=== PATIENT | female | born 1970 | race Caucasian/White ===

== ENCOUNTER 2024-02-15 06:19 | Emergency (ER) | payer OTHER, SELFPAY ==
[2024-02-15 06:24] VITALS: BP 164/100; PULSE 82; RESP 16; TEMP 36.5; O2SAT 98
--- NOTE | 2024-02-15 06:40 | ED.GENADUL_ITS ---
Discharge Plan Disposition Patient Disposition: Home Condition: Good Discharge Details Clinical Impression: Paronychia of finger ED Provider: Judy Gonzalez Home Meds and New Rx's Prescriptions: Continued Ozempic 2 mg/dose (8 mg/3 mL) pen injector 2 mg subcut QWEEK levothyroxine [Synthroid] 50 mcg tablet 50 mcg PO DAILY aspirin 81 mg capsule 81 mg PO DAILY ziprasidone HCl [Geodon] 80 mg capsule 80 mg PO DAILY Rx Instructions: give with food (meal/snack) trazodone 100 mg tablet 200 mg PO DAILY duloxetine [Cymbalta] 60 mg capsule,delayed release(DR/EC) 60 mg PO DAILY lithium carbonate 300 mg tablet 300 mg PO DAILY magnesium oxide 400 mg magnesium capsule 400 mg PO DAILY [id number]-rqefjpzc-duxdbj Tablet 1 tab PO DAILY fluticasone propion-salmeterol [Advair Diskus] 250-50 mcg/dose blister with device 1 inh inhalation BID esomeprazole magnesium [Nexium] 20 mg capsule,delayed release(DR/EC) 20 mg PO DAILY celecoxib [Celebrex] 200 mg capsule 200 mg PO DAILY clopidogrel [Plavix] 75 mg tablet 75 mg PO DAILY metformin 1,000 mg tablet 1,000 mg PO BID atorvastatin [Lipitor] 10 mg tablet 10 mg PO DAILY acetaminophen [Tylenol Extra Strength] 500 mg tablet 1,000 mg PO DAILY Discharge Instructions Instructions: Paronychia (ED) Additional Instructions: Continuing taking the doxycycline twice a day for 10 days, until it is all gone Call your primary care doctor today to schedule an appointment within the next 4 days to follow up on your visit here. Return to the emergency department for new or worsening symptoms, including if your finger pain and swelling worsens. HPI General Mode of arrival: ambulatory . Date/Time Provider Initiated Documentation: 02/15/24 06:23 . Limitations to Documentation: no limitations . Information obtained by: patient . HPI Narrative: 53yo F with hx DM, prior MRSA infections, presenting with right middle finger pain and swelling. First noted several days ago, reports going to urgent care on Thursday and being started on 7 day course of doxycycline. Since then pain and swelling have been worsening. No fevers, chills, nasuea, or vomiting. She is otherwise in her usual state of health. Related Data Home Medications Medication Instructions Recorded Confirmed acetaminophen 500 mg tablet 1,000 mg PO DAILY 02/15/24 02/15/24 (Tylenol Extra Strength) aspirin 81 mg capsule 81 mg PO DAILY 02/15/24 02/15/24 atorvastatin 10 mg tablet (Lipitor) 10 mg PO DAILY 02/15/24 02/15/24 celecoxib 200 mg capsule (Celebrex) 200 mg PO DAILY 02/15/24 02/15/24 clopidogrel 75 mg tablet (Plavix) 75 mg PO DAILY 02/15/24 02/15/24 duloxetine 60 mg capsule,delayed 60 mg PO DAILY 02/15/24 02/15/24 release (Cymbalta) esomeprazole magnesium 20 mg 20 mg PO DAILY 02/15/24 02/15/24 capsule,delayed release (Nexium) fluticasone 250 mcg-salmeterol 50 1 inh inhalation BID 02/15/24 02/15/24 mcg/dose blistr powdr for inhalation (Advair Diskus) levothyroxine 50 mcg tablet 50 mcg PO DAILY 02/15/24 02/15/24 (Synthroid) lithium carbonate 300 mg tablet 300 mg PO DAILY 02/15/24 02/15/24 magnesium oxide 400 mg PO DAILY 02/15/24 02/15/24 metformin 1,000 mg tablet 1,000 mg PO BID 02/15/24 02/15/24 pdxhsjxhwiir-icwpzluy-vaccum tablet 1 tab PO DAILY 02/15/24 02/15/24 semaglutide 2 mg/dose (8 mg/3 mL) 2 mg subcut QWEEK 02/15/24 02/15/24 subcutaneous pen injector (Ozempic) trazodone 100 mg tablet 200 mg PO DAILY 02/15/24 02/15/24 ziprasidone HCl 80 mg capsule 80 mg PO DAILY 02/15/24 02/15/24 (Geodon) Allergies Allergy/AdvReac Type Severity Reaction Status Date / Time Influenza Virus Vaccines Allergy Intermediate Hives Unverified 02/15/24 06:34 Penicillins Allergy Intermediate Skin Rash Unverified 02/15/24 06:34 Sulfa (Sulfonamide Allergy Intermediate Skin Rash Unverified 02/15/24 06:34 Antibiotics) tramadol AdvReac Mild Other (See Unverified 02/15/24 06:34 Comment) General Stated Complaint: Cellulitis MAITE: 4 Review of Systems Narrative: see HPI Exam Narrative Exam Narrative: General: Alert, well appearing, well nourished, in no acute distress. Head: Normocephalic, atraumatic Neck: Trachea midline, ?Neck supple. Cardiac: ?No cyanosis. Resp: No respiratory distress. Speaking in full sentences. Abd: ?Non-distended. Extremities: ?Right middle finger with paronchynia. Swelling and fluctuatance at distal phalanx extending from nail bed. Full ROM. No tenderness of palpation of flexor tendon sheath. Neurologic: GCS 15. ? Moves all extremities freely against gravity Course Vital Signs Vital signs: Vital Signs Temperature 36.5 C 02/15/24 06:24 Pulse 82 02/15/24 06:24 Respiratory Rate 16 02/15/24 06:24 Blood Pressure 164/100 H 02/15/24 06:24 Pulse Oximetry 98 02/15/24 06:24 Temperature 36.5 C 02/15/24 06:24 Temperature Source Temporal Artery Scan 02/15/24 06:24 Pulse 82 02/15/24 06:24 Respiratory Rate 16 02/15/24 06:24 Blood Pressure 164/100 H 02/15/24 06:24 Blood Pressure Position Sitting 02/15/24 06:24 Pulse Oximetry 98 02/15/24 06:24 Oxygen Delivery Method Room Air 02/15/24 06:24 Oxygen Flow Rate 0 02/15/24 06:24 Pain Level 9 02/15/24 06:24 Procedures Abscess I/D Site: Hand Side (if applicable): Right Sedation/analgesia: Other (digital block) Technique: Incised with #11 Blade Amount of fluid expressed (mL): 3 Irrigation: No Packing used?: None Nerve Block Nerve Block 1: Time out performed: Yes Local Anesthetic: Lidocaine 2% Amount of anesthesia used (mL): 5 Side: right Nerve Blocks: digital Procedure Successful: Yes Patient Tolerated Procedure: well Complications: none Medical Decision Making 53yo F with hx DM, prior MRSA infections, presenting with right middle finger pain and swelling. First noted several days ago, reports going to urgent care on Thursday and being started on 7 day course of doxycycline. Since then pain and swelling have been worsening. Systemically well. Hypertensive on arrival, vital signs otherwise reassuring. Not septic. would not get labs. Clear paronychia on right middle finger on exam. Exam not suggestive of flexor tenosynovitis, felon, or deep space involvement. Neurovascular intact. No indication for imaging. Digital block done and paronchyia I&D with 11 blade, copious purulence expressed. Given hx of severe MRSA infections in the past, will extend course of doxycycline to 10 days (sulfa and pxn allergy). Discharged home; discharge instructions and return precautions were reviewed with patient who verbalized understanding. All questions were answered and she is in agreement with the plan. Quality:SDOH Health Related Social Needs: No Data to Display PFSH All Active Problems (Updated 02/15/24 @ 06:57 by Judy Gonzalez MD) Paronychia of finger (Acute) Social History Smoking/Tobacco Use Status: Never Smoking risk assessment performed?: Yes Alcohol Intake: never Drug use: Never Substance use type: does not use
[2024-02-15] MEDS: Lidocaine 2% Multi-Dose 50 ML VIAL (06:48)
[2024-02-15 07:15] VITALS: BP 150/88; PULSE 78; RESP 16; TEMP 36.5; O2SAT 98
[2024-02-15] MEDS: Doxycycline Hyclate 100 MG CAP 600 MG PO (07:17)
== END 2024-02-15 07:15 | disposition home or self-care (01) ==
LOC: ER 07:25
PROVIDERS: Emergency Provider Student in an Organized Health Care Education/Training Program
DX: L03.019 Cellulitis of unspecified finger (principal)
CPT/HCPCS: 26010; 64450; J2003

== ENCOUNTER 2024-07-09 20:28 | Emergency (ER) | payer OTHER, SELFPAY ==
[2024-07-09] VITALS (35 sets, daily range): BP systolic 107–147; BP diastolic 42–92; PULSE 68–80; RESP 17–26; TEMP 36.1; O2SAT 92–97
--- NOTE | 2024-07-09 20:30 | RT.EKG_ITS ---
APPROVED REPORT Exam: Resting ECG Reason for Exam: stroke a Patient Location: E HR:76 bpm ECG Measurements Heart Rate 76 AXIS VT 187 P 7 QRSd 101 QRS -14 QT 433 T 45 QTc 487 Conclusion Sinus rhythm...normal P axis, V-rate 60- 99 Inferior infarct, old...Q >35mS, II III aVF sinus rhythm, normal axis, normal intefvals, nonischemic
--- NOTE | 2024-07-09 20:30 | DI.CT_ITS ---
Exam(s) CT BRAIN NECK CTA EXAM: CT BRAIN NECK CTA CLINICAL HISTORY: trouble forming sentences, hx TIA. TECHNIQUE: Imaging Protocol: Axial CT angiography was performed with multi-slice acquisition and mu lti-planar and/or 3D reconstructions. CONTRAST MATERIAL: Intravenous: Omnipaque 350 Contrast volume:structured data in ml COMPARISON: No exams were available for comparison FINDINGS: CTA Neck W: Aortic arch anatomy: The aortic arch anatomy is conventional and there is no significant stenosis at the origin of the great vessels off of the aortic arch. No intimal flap evident. Anterior circulation: Both common carotid arteries ascend with normal luminal diameters. The course of the ascending commo n carotid arteries is medial bilaterally and the carotid bifurcations are retro hypo pharyngeal. The re is no evidence of atherosclerotic stenosis in the carotid bifurcations and proximal ICAs and the i nternal carotid arteries above this level are nicely patent in both sides the neck as well as in the skull base-carotid canals. Posterior circulation: Both vertebral arteries originate in conventional fashion off of the subclavian arteries and there is no obvious stenosis at the origin of the vertebral arteries. Both vertebral arteries exhibit normal luminal diameters within the foramen transversarium. Both vertebral arteries contribute to the formation of the basilar artery at the skull base. There i s no significant narrowing of the vertebral arteries at the skull base level. CTA Brain W: Anterior circulation: Both internal carotid arteries are patent in the skull base-carotid canals as well as within the cave rnous sinuses. The supraclinoid aspects of the ICAs are patent. Both A1 segments are patent as are the anterior cer ebral arteries and there is no evidence of aneurysm at the level of the anterior communicating artery . Both middle cerebral arteries are patent with no evidence of significant stenosis nor intraluminal th rombus. There also no aneurysms of these vessels. Posterior circulation: The basilar artery ascends in the midline. Distally it gives off patent bilateral superior cerebella r arteries. Above this level the basilar artery terminates as patent bilateral posterior cerebral arteries. Ther e is a posterior communicating artery noted on the right side of the qcnxlr-pa-Uyztcp adding to the P COM circulation. There appears to be fainter opacification of the 3rd and 4 segments of the right po sterior artery at the level of the ambient and quadrigeminal cistern regions. This may be significan t There is no evidence of aneurysm at the tip of the basilar artery nor elsewhere in the ytcpmp-wr-Fjfg is. CT BRAIN: There is no evidence of intracranial hemorrhage, mass effect, or shift of midline structures. There are no extra-axial fluid collections. Ventricles are not enlarged or shifted. There are no ring enh ancing lesions in the brain and no abnormal meningeal enhancement. There is a well-defined hypodensity in left side of the brain which measures 9 x 9 x 9 mm and is prob ably a developmental sub lenticular cyst. Similar findings not seen on the opposite-right side. IMPRESSION: 1. Patent carotid arteries in the neck. No hemodynamically significant stenosis. 2. Patent vertebral arteries. 3. Patent anterior circulation intracranial arteries. 4. In the posterior intracranial circulation there is deficient opacification in the P 3 and P4 segme nts of the right posterior cerebral artery. Recommend follow-up MRI with diffusion imaging and MRA. Also neurology consultation First read by Elsy [facility] Final report called by myself to ER physician 07/10/2024 5:40 p.m. RADIATION DOSE DELIVERED: 2,274.69mGy.cm Total DLP DATA REPOSITORY: All CT scans at this facility are submitted to the National Radiology Data Registry (NRDR) Dose Index Registry (DIR) with the [employer] ([employer]). RADIATION OPTIMIZATION: All CT scans at this facility use at least one of these dose optimization te chniques: automated exposure control; mA and/or kV adjustment per patient size (includes targeted exa ms where dose is matched to clinical indication); or iterative reconstruction.
--- NOTE | 2024-07-09 20:31 | DI.RAD_ITS ---
Exam(s) XR CHEST 2V PA LATERAL EXAM: XR CHEST 2V PA LATERAL CLINICAL HISTORY: ams trouble speaking. TECHNIQUE: 2D digital imaging was performed. COMPARISON: No exams were available for comparison FINDINGS: 2 views: Heart size is upper normal. The mediastinum is not widened. Lungs are clear. No infiltrates nor pleural effusions. IMPRESSION: No acute pulmonary findings. DATA REPOSITORY: RADIATION DOSE DELIVERED:
[2024-07-09 20:38] LABS: Abs Immature Grans 0.04 10^3/uL (0.0-0.06); Absolute Basophil Count 0.04 10^3/uL (0.0-0.2); Absolute Eosinophil Count 0.34 10^3/uL (0.0-0.7); Absolute Lymphocyte Count 3.03 10^3/uL (1.2-3.4); Absolute Monocyte Count 0.75 10^3/uL (0.1-0.8); Absolute Neutrophil Count 6.42 10^3/uL (1.2-6.7); Basophils % 0.4 %; Eosinophils % 3.2 %; HCT 42.7 % (36.0-46.0); Immature Grans % 0.4 %; Lymphocytes % 28.5 %; MCH 27.1 pg (27.0-33.0); MCHC 30.4 % (32.0-36.0); MCV 89 fL (80-95); MPV 10.2 fL (8.0-11.0); Monocytes % 7.1 %; Neutrophils % 60.4 %; Platelet Count 255 10^3/uL (130-400); RDW 14.2 % (11.7-14.6); WBC 10.62 10^3/uL (4.4-10.8)
--- NOTE | 2024-07-09 20:38 | ED.GENADUL_ITS ---
Discharge Plan Discharge Details Chief Complaint: CVA/TIA Primary Care Provider: Unknown,Unknown ED Provider: Thad Alvarado Home Meds and New Rx's Prescriptions: No Action Ozempic 2 mg/dose (8 mg/3 mL) pen injector 2 mg subcut QWEEK levothyroxine [Synthroid] 50 mcg tablet 50 mcg PO DAILY aspirin 81 mg capsule 81 mg PO DAILY ziprasidone HCl [Geodon] 80 mg capsule 80 mg PO DAILY Rx Instructions: give with food (meal/snack) trazodone 100 mg tablet 200 mg PO DAILY duloxetine [Cymbalta] 60 mg capsule,delayed release(DR/EC) 60 mg PO DAILY lithium carbonate 300 mg tablet 300 mg PO DAILY magnesium oxide 400 mg magnesium capsule 400 mg PO DAILY [id number]-kbfshdfb-svfeoh Tablet 1 tab PO DAILY fluticasone propion-salmeterol [Advair Diskus] 250-50 mcg/dose blister with device 1 inh inhalation BID esomeprazole magnesium [Nexium] 20 mg capsule,delayed release(DR/EC) 20 mg PO DAILY celecoxib [Celebrex] 200 mg capsule 200 mg PO DAILY clopidogrel [Plavix] 75 mg tablet 75 mg PO DAILY metformin 1,000 mg tablet 1,000 mg PO BID atorvastatin [Lipitor] 10 mg tablet 10 mg PO DAILY acetaminophen [Tylenol Extra Strength] 500 mg tablet 1,000 mg PO DAILY HPI General Date/Time Provider Initiated Documentation: 07/09/24 20:30 . HPI Narrative: 53-year-old female history of prior stroke, hypothyroidism, obesity, diabetes presents with acute word finding difficulties trouble speaking that began approximately 30 minutes before arrival, witnessed by family. Denies headache chest pain shortness of breath or other systemic symptoms. No weakness or numbness. Blood sugar normal in the field per EMS Related Data Home Medications ?Medication ?Instructions ?Recorded ?Confirmed acetaminophen 500 mg tablet 1,000 mg PO DAILY 02/15/24 02/15/24 (Tylenol Extra Strength) aspirin 81 mg capsule 81 mg PO DAILY 02/15/24 02/15/24 atorvastatin 10 mg tablet (Lipitor) 10 mg PO DAILY 02/15/24 02/15/24 celecoxib 200 mg capsule (Celebrex) 200 mg PO DAILY 02/15/24 02/15/24 clopidogrel 75 mg tablet (Plavix) 75 mg PO DAILY 02/15/24 02/15/24 duloxetine 60 mg capsule,delayed 60 mg PO DAILY 02/15/24 02/15/24 release (Cymbalta) esomeprazole magnesium 20 mg 20 mg PO DAILY 02/15/24 02/15/24 capsule,delayed release (Nexium) fluticasone 250 mcg-salmeterol 50 1 inh inhalation BID 02/15/24 02/15/24 mcg/dose blistr powdr for inhalation (Advair Diskus) levothyroxine 50 mcg tablet 50 mcg PO DAILY 02/15/24 02/15/24 (Synthroid) lithium carbonate 300 mg tablet 300 mg PO DAILY 02/15/24 02/15/24 magnesium oxide 400 mg PO DAILY 02/15/24 02/15/24 metformin 1,000 mg tablet 1,000 mg PO BID 02/15/24 02/15/24 bmzfuanvydhf-wdhlmowe-dojpkq tablet 1 tab PO DAILY 02/15/24 02/15/24 semaglutide 2 mg/dose (8 mg/3 mL) 2 mg subcut QWEEK 02/15/24 02/15/24 subcutaneous pen injector (Ozempic) trazodone 100 mg tablet 200 mg PO DAILY 02/15/24 02/15/24 ziprasidone HCl 80 mg capsule 80 mg PO DAILY 02/15/24 02/15/24 (Geodon) Allergies Allergy/AdvReac Type Severity Reaction Status Date / Time Influenza Virus Vaccines Allergy Intermediate Hives Unverified 07/09/24 21:10 Penicillins Allergy Intermediate Skin Rash Unverified 07/09/24 21:10 Sulfa (Sulfonamide Allergy Intermediate Skin Rash Unverified 07/09/24 21:10 Antibiotics) tramadol AdvReac Mild Other (See Unverified 07/09/24 21:10 Comment) General Stated Complaint: CVA/TIA MAITE: 2 Exam Narrative Exam Narrative: Alert oriented interactive Moist mucous membranes tolerating secretions Lungs clear bilaterally no wheezes rales or rhonchi Normal heart sounds no murmurs rubs or gallops Abdomen soft nontender nondistended Cranial nerves II through XII intact 5-5 strength upper and lower extremities bilaterally, sensation intact light touch upper and lower extremities bilaterally, no ataxia no pronator drift patient does have a slow speech but is able to form words and sentences completely No peripheral edema No rash no signs of trauma Course Vital Signs Vital signs: Vital Signs Temperature 36.1 C L 10/12/24 20:26 Pulse 77 07/09/24 20:26 Respiratory Rate 18 07/09/24 20:26 Blood Pressure 147/75 H 07/09/24 20:26 Pulse Oximetry 95 07/09/24 20:26 Temperature 36.1 C L 07/09/24 20:26 Temperature Source Temporal Artery Scan 07/09/24 20:26 Pulse 77 07/09/24 20:26 Respiratory Rate 18 07/09/24 20:26 Respiratory Effort Normal, Non-Labored 07/09/24 20:33 Blood Pressure 147/75 H 07/09/24 20:26 Blood Pressure Position Sitting 07/09/24 20:26 Pulse Oximetry 95 07/09/24 20:26 Oxygen Delivery Method Room Air 07/09/24 20:26 Oxygen Flow Rate 0 07/09/24 20:26 Medical Decision Making 53-year-old female history of prior stroke, hypothyroidism, obesity, diabetes presents with acute word finding difficulties trouble speaking that began approximately 30 minutes before arrival, witnessed by family. Denies headache chest pain shortness of breath or other systemic symptoms. No weakness or numbness. Blood sugar normal in the field per EMS; Cranial nerves II through XII intact 5-5 strength upper and lower extremities bilaterally, sensation intact light touch upper and lower extremities bilaterally, no ataxia no pronator drift patient does have a slow speech but is able to form words and sentences completely, patient alert to self time and place; hemodynamically stable afebrile nontoxic nonmeningeal no signs of intoxication or trauma. Blood sugar normal. Patient taken for immediate CT CTA head and neck. Consider TIA versus CVA versus less likely seizure with postictal phase versus polypharmacy versus metabolic derangement lower suspicion for infectious process such as encephalitis or meningitis given history and physical. Screening labs imaging close reassessment 21: 14 patient was comfortably no acute distress; speech is returned to normal; repeat NIH stroke scale 0. Consider TIA. Teleneurology consult has been initiated. Patient follows with neurologist in [facility] 23: 32 still awaiting tele neuro neuroevaluation. Patient remains asymptomatic. Quality:SDOH Health Related Social Needs: No Data to Display PFSH Social History Smoking/Tobacco Use Status: Never Smoking risk assessment performed?: Yes Alcohol Intake: never Drug use: Never Substance use type: does not use
[2024-07-09] MEDS: Omnipaque 350 MG/ML 100 ML BTL IJ (20:41)
[2024-07-09] MEDS: Normal Saline - Diluent 50 ML VIAL IJ (20:42)
[2024-07-09 20:54] LABS: Ammonia 12 umol/L (11-32)
[2024-07-09 20:57] LABS: INR 0.9 (0.9-1.1); PTT Activated 26.8 sec (23.6-32.8); Prothrombin Time 9.5 sec (9.1-11.1)
[2024-07-09 21:01] LABS: Magnesium 1.6 mg/dL (1.8-2.4); TSH (W/Ref FT4) 4.79 uIU/mL (0.36-3.74)
[2024-07-09 21:03] LABS: ETHANOL BLOOD < 3.0 mg/dL (<10)
--- NOTE | 2024-07-09 21:11 | DI.VRAD_ITS ---
PROCEDURE INFORMATION: Exam: CTA Head Without And With Contrast, Arteriography Exam date and time: 07/09/2024 8:37 PM Age: 53 years old Clinical indication: Stroke-like symptoms; Other: Trouble forming sentences, HX TIA TECHNIQUE: Imaging protocol: Computed tomographic angiography of the head without and with contrast. Exam focused on the arteries. 3D rendering (Not supervised by radiologist): MIP and/or 3D reconstructed images were created by the technologist. Radiation optimization: All CT scans at this facility use at least one of these dose optimization techniques: automated exposure control; mA and/or kV adjustment per patient size (includes targeted exams where dose is matched to clinical indication); or iterative reconstruction. Contrast material: 350; Contrast volume: 75 ml; Contrast route: INTRAVENOUS (IV); Other technique: STROKE PROTOCOL was implemented. COMPARISON: No relevant prior studies available. FINDINGS: ANTERIOR CIRCULATION: Right internal carotid artery: Intracranial segment is patent with no significant stenosis or occlusion. No aneurysm. Right middle cerebral artery: No occlusion or significant stenosis. No aneurysm. Right anterior cerebral artery: No occlusion or significant stenosis. No aneurysm. Left internal carotid artery: Intracranial segment is patent with no significant stenosis. No aneurysm. Left middle cerebral artery: No occlusion or significant stenosis. No aneurysm. Left anterior cerebral artery: No occlusion or significant stenosis. No aneurysm. POSTERIOR CIRCULATION: Right vertebral artery: No occlusion or significant stenosis. No aneurysm. Left vertebral artery: No occlusion or significant stenosis. No aneurysm. Basilar artery: No occlusion or significant stenosis. No aneurysm. Right posterior cerebral artery: No occlusion or significant stenosis. No aneurysm. Left posterior cerebral artery: No occlusion or significant stenosis. No aneurysm. HEAD: Brain: Chronic lacunar infarct in the left basal ganglia. Cerebral ventricles: Normal. No ventriculomegaly. Bones: Unremarkable. No acute fracture. Paranasal sinuses: Visualized sinuses are normal. No fluid levels. Mastoid air cells: Visualized mastoids are normal. No mastoid effusion. Soft tissues: Unremarkable. IMPRESSION: No stenosis or occlusion of intracranial arteries. ASSESSMENT: ASPECTS ([place] Stroke Program Early CT Score) is 10. PROCEDURE INFORMATION: Exam: CTA Neck Without And With Contrast Exam date and time: 07/09/2024 8:37 PM Age: 53 years old Clinical indication: Stroke-like symptoms; Other: Trouble forming sentences, HX TIA TECHNIQUE: Imaging protocol: Computed tomographic angiography of the neck without and with contrast. Exam focused on the cervical segments of the vasculature. 3D rendering (Not supervised by radiologist): MIP and/or 3D reconstructed images were created by the technologist. Radiation optimization: All CT scans at this facility use at least one of these dose optimization techniques: automated exposure control; mA and/or kV adjustment per patient size (includes targeted exams where dose is matched to clinical indication); or iterative reconstruction. Contrast material: 350; Contrast volume: 75 ml; Contrast route: INTRAVENOUS (IV); COMPARISON: No relevant prior studies available. FINDINGS: Right common carotid artery: No stenosis. No dissection or occlusion. Right internal carotid artery: No stenosis of the extracranial segment. No dissection or occlusion. Right external carotid artery: No occlusion or stenosis of the origin. Left common carotid artery: No stenosis. No dissection or occlusion. Left internal carotid artery: No stenosis of the extracranial segment. No dissection or occlusion. Left external carotid artery: No occlusion or stenosis of the origin. Right vertebral artery: No stenosis. No dissection or occlusion. Left vertebral artery: No stenosis. No dissection or occlusion. Soft tissues: Normal. No significant soft tissue swelling. Bones/joints: Retropharyngeal course of bilateral internal carotid arteries. Of C7 straightening IMPRESSION: No stenosis or occlusion of neck arteries. REFERENCES: NASCET CRITERIA. The degree of stenosis in the cervical segment of the internal carotid artery is based on NASCET criteria. Normal is no stenosis. Mild is less than 50% stenosis. Moderate is 50-69% stenosis. Severe is 70% to 99% stenosis. Total occlusion is no detectable patent lumen. Dictated and Authenticated by: Rene Weir MD. Ordering:AARON Oneil MD
--- NOTE | 2024-07-09 21:11 | DI.VRAD_ITS ---
PROCEDURE INFORMATION: Exam: XR Chest Exam date and time: 07/09/2024 8:50 PM Age: 53 years old Clinical indication: Other: AMS, trouble speaking TECHNIQUE: Imaging protocol: Radiologic exam of the chest. Views: 2 views. COMPARISON: CT BRAIN NECK CTA 07/09/2024 8:37 PM FINDINGS: Lungs: Unremarkable. No consolidation. Pleural spaces: Unremarkable. No pleural effusion. No pneumothorax. Heart/Mediastinum: Cardiomegaly. Bones/joints: Degenerative changes of the spine. IMPRESSION: No acute abnormality. Dictated and Authenticated by: Rene Weir MD. Ordering:AARON Oneil MD
[2024-07-09 21:29] LABS: ALT 36 U/L (14-59); AST 24 U/L (15-37); Albumin 3.7 g/dL (3.4-5.0); Alkaline Phosphatase 83 U/L (46-116); Anion Gap 8.6 mmol/L (3-11); BUN 11 mg/dL (7-18); Bilirubin, Total 0.58 mg/dL (0.2-1.0); CO2 30.4 mmol/L (21.0-32.0); CREATININE 0.9 mg/dL (0.55-1.02); Calcium 9.7 mg/dL (8.5-10.1); Chloride 105 mmol/L (98-107); Estimated GFR 76.92 (mL/min/1.73m2); Glucose 151 mg/dL (74-106); Potassium 3.8 mmol/L (3.5-5.1); Sodium 144 mmol/L (136-145); Total Protein 7.9 g/dL (6.4-8.2)
[2024-07-09 21:59] LABS: Lithium 0.3 mmol/L (0.6-1.2)
[2024-07-09 22:38] LABS: Bilirubin Negative (Negative); Blood Negative (Negative); Clarity Clear (Clear); Glucose Negative (Negative); Ketones Negative (Negative); Leukocyte Esterase Negative (Negative); Nitrite Negative (Negative); Urobilinogen 0.2 mg/dL (Up to 0.2)
[2024-07-09 23:05] LABS: *AMPHETAMINES SCREEN URINE Negative (Negative); *BARBITURATES SCREEN URINE Negative (Negative); *BENZODIAZEPINES SCREEN URINE Negative (Negative); Cannabinoids THC Negative (Negative); Cocaine Screen,Urine Negative (Negative); METHADONE URINE SCREEN Negative (Negative); OPIATES URINE SCREEN Negative (Negative)
[2024-07-09 23:06] LABS: Tricyclic Antidepressants Negative (Negative)
[2024-07-10] VITALS (30 sets, daily range): BP systolic 101–140; BP diastolic 54–85; PULSE 67–84; RESP 14–26; O2SAT 92–98
[2024-07-10] MEDS: MAGNESIUM SULFATE 1 GM/100 ML BAG IV_INF (00:10)
--- NOTE | 2024-07-10 00:28 | W.EDPROG ---
Date of service: 07/09/24 Time of Service: 23:40 Medical Decision Making This patient was signed out to me. Please see previous notes for H&P and initial eval. In brief, 53yo F with hx of CVA presenting with difficulty speaking that started 30 minutes prior to arrival. On exam had slow speech, otherwise non-focal neurologic exam, given NIHSS of 1. CTA head and neck negative. On reassessment symptoms had entirely resolved. Concern for possible TIA. Pt currently on aspirin & plavix, lipitor. Signed out pending teleneurology consult. Teleneurology evaluated patient; discussed with Dr. Gonzales who agrees episode may represent TIA, patient is already on appropriate therapy, felt to be appropriate for outpatient neurology followup and outpatient MRI through her neurologist. On reassessment patient remains well appearing wtih reassuring vital signs, normal neurologic exam. Discharged home; discharge instructions and return precautions were reviewed with patient who verbalized understanding. All questions were answered and she is in full agreement with the plan. Lab Data Lab results reviewed: Yes I reviewed the patient's lab results. Quality:[facility] Health Related Social Needs: No Data to Display Sign Out Sign Out Data: Sign Out Comment: pending tele neuro eval, speech deficits now resolved Last updated by Thad Alvarado MD at 07/09/24 23:35 Discharge Plan Disposition Patient Disposition: Home Condition: Good Discharge Details Clinical Impression: Brain TIA Primary Care Provider: Unknown,Unknown ED Provider: Judy Gonzalez Home Meds and New Rx's Prescriptions: Continued Ozempic 2 mg/dose (8 mg/3 mL) pen injector 2 mg subcut QWEEK levothyroxine [Synthroid] 50 mcg tablet 50 mcg PO DAILY aspirin 81 mg capsule 81 mg PO DAILY ziprasidone HCl [Geodon] 80 mg capsule 80 mg PO DAILY Rx Instructions: give with food (meal/snack) trazodone 100 mg tablet 200 mg PO DAILY duloxetine [Cymbalta] 60 mg capsule,delayed release(DR/EC) 60 mg PO DAILY lithium carbonate 300 mg tablet 300 mg PO DAILY magnesium oxide 400 mg magnesium capsule 400 mg PO DAILY [id number]-utdsoa Tablet 1 tab PO DAILY fluticasone propion-salmeterol [Advair Diskus] 250-50 mcg/dose blister with device 1 inh inhalation BID esomeprazole magnesium [Nexium] 20 mg capsule,delayed release(DR/EC) 20 mg PO DAILY celecoxib [Celebrex] 200 mg capsule 200 mg PO DAILY clopidogrel [Plavix] 75 mg tablet 75 mg PO DAILY metformin 1,000 mg tablet 1,000 mg PO BID atorvastatin [Lipitor] 10 mg tablet 10 mg PO DAILY acetaminophen [Tylenol Extra Strength] 500 mg tablet 1,000 mg PO DAILY Discharge Instructions Instructions: Transient Ischemic Attack ED Additional Instructions: Call your neurologist as soon as they are open to schedule an appointment to be seen as soon as possible to followup on your visit today. You will need to get an MRI which your neurologist can order for you. Return to the emergency department if your symptoms return or for new or worsening symptoms, including fever, numbness, weakness, vertigo, vision changes, difficulty speaking, or if you have any other concerns.
--- NOTE | 2024-07-10 07:11 | NUR.NOTE ---
Access chart to reconcile EKG orders with EKG's in [facility]. Duplicate order cancelled. Nursing Note:
--- NOTE | 2024-07-10 07:12 | NUR.NOTE ---
Access chart to reconcile EKG orders with EKG's in [facility]. Duplicate order cancelled. Nursing Note:
--- NOTE | 2024-07-10 23:09 | W.ED.FU ---
Date of service: 07/10/24 Time of Service: 23:09 Follow Up Plan: Over read called from radiology department with regards to patient's CTA from yesterday which is concerning for poor flow through P3 P4 segment of right posterior cerebral artery recommending MRI with diffusion imaging and MRA. Patient received telemetry neuro evaluation last night and was cleared for home with close follow-up. I relayed the radiology report to the patient and encouraged prompt MRI imaging. Patient is contacting her neurologist in the morning. Given instructions to return to the emergency department for any worsening symptoms or if she is unable to coordinate further imaging. Patient currently asymptomatic
== END 2024-07-10 03:24 | disposition home or self-care (01) ==
PROVIDERS: Emergency Medicine; Emergency Provider Student in an Organized Health Care Education/Training Program
DX: I63.9 Cerebral infarction, unspecified (principal); E11.9 Type 2 diabetes mellitus without complications; Z79.85 Long-term (current) use of injectable non-insulin antidiabetic drugs; Z79.82 Long term (current) use of aspirin; Z79.02 Long term (current) use of antithrombotics/antiplatelets; Z86.73 Personal history of transient ischemic attack (TIA), and cerebral infarction without residual deficits
CPT/HCPCS: 00123; 70496; 70498; 80053; 80307; 81025; 82962; 93005; 99285; 71046; 80178; 80320; 81003; 82140; 83735; 84439; 84443; 85025; 85610; 85730; 93010; 99284; J3475; J3490

== ENCOUNTER 2024-07-11 13:20 | Emergency (ER) | payer OTHER, SELFPAY ==
[2024-07-11] VITALS (17 sets, daily range): BP systolic 129–165; BP diastolic 81–107; PULSE 72–87; RESP 20–28; TEMP 36.9; O2SAT 93–99
--- NOTE | 2024-07-11 12:45 | RT.EKG_ITS ---
APPROVED REPORT Exam: Resting ECG Reason for Exam: Possible Stroke Patient Location: E HR:75 bpm ECG Measurements Heart Rate 75 AXIS RI 195 P 60 QRSd 94 QRS 18 QT 418 T 34 QTc 467 Conclusion Sinus rhythm 75 normal axis no stemi
--- NOTE | 2024-07-11 13:00 | DI.MRI_ITS ---
Exam(s) MR ANGIO BRAIN WO CLINICAL HISTORY: SPEECH CHANGE. TECHNIQUE: Multiplanar multisequence MRA of the brain was performed. COMPARISON: MR MR BRAIN WO from 07/11/2024 FINDINGS: Carotid Arteries: No aneurysm, occlusion or significant stenosis. Anterior Cerebral Arteries: Right: No aneurysm, occlusion or significant stenosis. Left: No aneurysm, occlusion or significant stenosis. Middle Cerebral Arteries: Right: No aneurysm, occlusion or significant stenosis. Left: No aneurysm, occlusion or significant stenosis. Posterior Cerebral Arteries: Right: No aneurysm, occlusion or significant stenosis. The right [employer] arises predominantly from the r ight posterior communicating artery which is a normal variant. Left: No aneurysm, occlusion or significant stenosis. Vertebral Arteries: Right: No aneurysm, occlusion or significant stenosis. Left: No aneurysm, occlusion or significant stenosis. Basilar Artery: No aneurysm, occlusion or significant stenosis. IMPRESSION: No evidence of occlusion or significant stenosis on this MRA of the [id number]-[id number]-Qjrrjc. DATA REPOSITORY:
--- NOTE | 2024-07-11 13:00 | DI.MRI_ITS ---
Exam(s) MR BRAIN WO EXAM: MR BRAIN WO CLINICAL HISTORY: SPEECH CHANGES TECHNIQUE: Multiplanar multisequence MRI of the brain was performed. COMPARISON: CT CT BRAIN NECK CTA from 07/09/2024 FINDINGS: VENTRICLES AND EXTRA AXIAL SPACES: Normal in size and morphology for the patient's age. MIDLINE SHIFT: None. CEREBRAL PARENCHYMA: No focus of restricted diffusion to suggest acute infarct. No space-occupying le jm identified. Stable cyst in the right basal gangliar. HEMORRHAGE: None. BRAINSTEM/CEREBELLUM: Normal. CALVARIUM: Normal. VISUALIZED PARANASAL SINUSES/MASTOIDS:Clear. [place]: Normal flow void. PITUITARY GLAND: Unremarkable. OTHER FINDINGS: None. IMPRESSION: No evidence of an acute intracranial infarct. DATA REPOSITORY:
--- NOTE | 2024-07-11 13:13 | DI.MRI_ITS ---
Exam(s) MR ANGIO NECK WO EXAM: MRA NECK WITHOUT IV CONTRAST CLINICAL HISTORY: SPEECH CHANGE. TECHNIQUE: Performed on 1.5 farooq unit with [id number] sequence. CONTRAST MATERIAL: IV Contrast: None COMPARISON: None. CTA of 07/09/2024 FINDINGS: ANTERIOR CIRCULATION: Aortic arch anatomy is conventional. Both common carotid arteries ascend with normal luminal diameters but are again noted to exhibit some what medial course with the bifurcations being somewhat retro pharyngeal. There is no evidence of si gnificant atherosclerotic narrowing at the level of the carotid bifurcations and proximal ICAs and collin th internal carotid arteries exhibit normal caliber in the upper neck and skull base-carotid canals. POSTERIOR CIRCULATION: Both vertebral arteries originate in conventional fashion off of the subclavian arteries and ascend w ith normal luminal diameters in the foramen transverse area. The right vertebral artery is dominant. However, both vessels are nicely patent in the neck and both contribute to the formation of the bas ilar artery at the skull base. There is no evidence of occlusion nor dissection of the vertebral art eries. IMPRESSION: 1. Somewhat medial course of both common carotid arteries in the neck, as described above and as also seen on recent CT angiography study of 2 days ago. There is no significant atherosclerotic narrowin g nor dissection of the carotid arteries in the neck 2. Patent bilateral vertebral arteries in the neck. DATA REPOSITORY:
[2024-07-11 13:21] LABS: Abs Immature Grans 0.03 10^3/uL (0.0-0.06); Absolute Basophil Count 0.03 10^3/uL (0.0-0.2); Absolute Lymphocyte Count 2.34 10^3/uL (1.2-3.4); Absolute Monocyte Count 0.69 10^3/uL (0.1-0.8); Absolute Neutrophil Count 6.81 10^3/uL (1.2-6.7); Basophils % 0.3 %; Eosinophils % 2.9 %; HCT 41.2 % (36.0-46.0); HGB 12.6 g/dL (11.2-15.7); Immature Grans % 0.3 %; Lymphocytes % 22.9 %; MCH 27.3 pg (27.0-33.0); MCHC 30.6 % (32.0-36.0); MCV 89 fL (80-95); MPV 10.6 fL (8.0-11.0); Monocytes % 6.8 %; Neutrophils % 66.8 %; Platelet Count 250 10^3/uL (130-400); RBC 4.62 10^6/uL (3.93-5.22); RDW 14.1 % (11.7-14.6); RDW-SD 45.6 fL
[2024-07-11 13:35] LABS: ALT 30 U/L (14-59); AST 33 U/L (15-37); Albumin 3.4 g/dL (3.4-5.0); Alkaline Phosphatase 84 U/L (46-116); Anion Gap 8.8 mmol/L (3-11); BUN 9 mg/dL (7-18); Bilirubin, Total 0.61 mg/dL (0.2-1.0); CO2 28.2 mmol/L (21.0-32.0); CREATININE 0.8 mg/dL (0.55-1.02); Calcium 9.5 mg/dL (8.5-10.1); Chloride 105 mmol/L (98-107); Glucose 110 mg/dL (74-106); Potassium 4.1 mmol/L (3.5-5.1); Sodium 142 mmol/L (136-145); Total Protein 7.5 g/dL (6.4-8.2)
[2024-07-11 13:54] LABS: Lithium < 0.2 mmol/L (0.6-1.2)
--- NOTE | 2024-07-11 16:51 | ED.GENADUL_ITS ---
Discharge Plan Disposition Patient Disposition: Home Condition: Stable Discharge Details Clinical Impression: Alteration in speech Primary Care Provider: Unknown,Unknown ED Provider: Kushal Morfin Home Meds and New Rx's Prescriptions: No Action Ozempic 2 mg/dose (8 mg/3 mL) pen injector 2 mg subcut QWEEK levothyroxine [Synthroid] 50 mcg tablet 50 mcg PO DAILY aspirin 81 mg capsule 81 mg PO DAILY ziprasidone HCl [Geodon] 80 mg capsule 80 mg PO DAILY Rx Instructions: give with food (meal/snack) trazodone 100 mg tablet 200 mg PO DAILY duloxetine [Cymbalta] 60 mg capsule,delayed release(DR/EC) 60 mg PO DAILY lithium carbonate 300 mg tablet 300 mg PO DAILY magnesium oxide 400 mg magnesium capsule 400 mg PO DAILY [id number]-aocrdrmf-ujjybh Tablet 1 tab PO DAILY fluticasone propion-salmeterol [Advair Diskus] 250-50 mcg/dose blister with device 1 inh inhalation BID esomeprazole magnesium [Nexium] 20 mg capsule,delayed release(DR/EC) 20 mg PO DAILY celecoxib [Celebrex] 200 mg capsule 200 mg PO DAILY clopidogrel [Plavix] 75 mg tablet 75 mg PO DAILY metformin 1,000 mg tablet 1,000 mg PO BID atorvastatin [Lipitor] 10 mg tablet 10 mg PO DAILY acetaminophen [Tylenol Extra Strength] 500 mg tablet 1,000 mg PO DAILY Discharge Instructions Additional Instructions: Please continue your medications daily and do not miss any doses Please contact neurologist for urgent follow-up appointment Return to the emergency department with any recurrence of symptoms or other concern Discharge Data Discharge Date/Time-TO BE ENTERED AT DEPARTURE: 07/11/24 15:39 HPI General Date/Time Provider Initiated Documentation: 07/11/24 15:30 . Limitations to Documentation: other . Information obtained by: patient . HPI Narrative: 53-year-old female with past medical history of CVA presents for evaluation of speech difficulty. EMS reports that symptoms have been ongoing for the last 2 hours. She was apparently in the emergency department 2 days ago with similar symptoms and had a negative workup and neurologic evaluation at that time. She was instructed to return for MRI given a concern for possible abnormality on an over read of the CT scan. Related Data Home Medications ?Medication ?Instructions ?Recorded ?Confirmed acetaminophen 500 mg tablet 1,000 mg PO DAILY 02/15/24 07/10/24 (Tylenol Extra Strength) aspirin 81 mg capsule 81 mg PO DAILY 02/15/24 07/10/24 atorvastatin 10 mg tablet (Lipitor) 10 mg PO DAILY 02/15/24 07/10/24 celecoxib 200 mg capsule (Celebrex) 200 mg PO DAILY 02/15/24 07/10/24 clopidogrel 75 mg tablet (Plavix) 75 mg PO DAILY 02/15/24 07/10/24 duloxetine 60 mg capsule,delayed 60 mg PO DAILY 02/15/24 07/10/24 release (Cymbalta) esomeprazole magnesium 20 mg 20 mg PO DAILY 02/15/24 07/10/24 capsule,delayed release (Nexium) fluticasone 250 mcg-salmeterol 50 1 inh inhalation BID 02/15/24 07/10/24 mcg/dose blistr powdr for inhalation (Advair Diskus) levothyroxine 50 mcg tablet 50 mcg PO DAILY 02/15/24 07/10/24 (Synthroid) lithium carbonate 300 mg tablet 300 mg PO DAILY 02/15/24 07/10/24 magnesium oxide 400 mg PO DAILY 02/15/24 07/10/24 metformin 1,000 mg tablet 1,000 mg PO BID 02/15/24 07/10/24 acbnwgighlhl-squlevyr-rmkpeg tablet 1 tab PO DAILY 02/15/24 07/10/24 semaglutide 2 mg/dose (8 mg/3 mL) 2 mg subcut QWEEK 02/15/24 07/10/24 subcutaneous pen injector (Ozempic) trazodone 100 mg tablet 200 mg PO DAILY 02/15/24 07/10/24 ziprasidone HCl 80 mg capsule 80 mg PO DAILY 02/15/24 07/10/24 (Geodon) Allergies Allergy/AdvReac Type Severity Reaction Status Date / Time Influenza Virus Vaccines Allergy Intermediate Hives Unverified 07/09/24 21:10 Penicillins Allergy Intermediate Skin Rash Unverified 07/09/24 21:10 Sulfa (Sulfonamide Allergy Intermediate Skin Rash Unverified 07/09/24 21:10 Antibiotics) tramadol AdvReac Mild Other (See Unverified 07/09/24 21:10 Comment) General Stated Complaint: CVA/TIA MAITE: 2 Exam Narrative Exam Narrative: Review of Systems: All systems reviewed & are unremarkable except as noted in HPI and below Well-developed, no acute distress NCAT no facial asymmetry PERRL, normal conjunctiva RRR no murmur Unlabored respiratory effort clear bilaterally Nondistended abdomen Moving all extremities equally, following commands, her speech is slow and stuttered, but each word is clear. She is making full coherent sentences, there is just a large space between each word Course Vital Signs Vital signs: Vital Signs Pulse Oximetry 95 07/11/24 13:01 Temperature 36.9 C 07/11/24 13:06 Temperature Source Temporal Artery Scan 07/11/24 13:06 Pulse 75 07/11/24 15:31 Pulse 76 07/11/24 13:20 Respiratory Rate 22 07/11/24 13:20 Respiratory Effort Normal, Non-Labored 07/11/24 13:14 Respiratory Depth Normal 07/11/24 13:14 Respiratory Pattern Normal 07/11/24 13:14 Blood Pressure 152/89 H 07/11/24 15:31 Blood Pressure Mean 105 07/11/24 15:31 Blood Pressure Position Sitting 07/11/24 13:06 Pulse Oximetry 94 07/11/24 15:31 Oxygen Delivery Method Room Air 07/11/24 13:06 Oxygen Flow Rate 0 07/11/24 13:06 Pain Level 0 07/11/24 15:38 Lab/Test Results Lab/Test Results: Laboratory Tests Range/Units 07/11/24 07/11/24 13:00 13:26 WBC (4.4-10.8) 10^3/uL 10.20 RBC (3.93-5.22) 10^6/uL 4.62 Hgb (11.2-15.7) g/dL 12.6 Hct (36.0-46.0) % 41.2 MCV (80-95) fL 89 MCH (27.0-33.0) pg 27.3 MCHC (32.0-36.0) % 30.6 L RDW (11.7-14.6) % 14.1 Plt Count (130-400) 10^3/uL 250 MPV (8.0-11.0) fL 10.6 Immature Gran % % 0.3 Neutrophils % % 66.8 Lymphocytes % % 22.9 Monocytes % % 6.8 Eosinophils % % 2.9 Basophils % % 0.3 Nucleated RBC % (0.0-0.3) % 0.0 Absolute Neutrophils (1.2-6.7) 10^3/uL 6.81 H Absolute Lymphocytes (1.2-3.4) 10^3/uL 2.34 Absolute Monocytes (0.1-0.8) 10^3/uL 0.69 Absolute Eosinophils (0.0-0.7) 10^3/uL 0.30 Absolute Basophils (0.0-0.2) 10^3/uL 0.03 Sodium (136-145) mmol/L 142 Potassium (3.5-5.1) mmol/L 4.1 Chloride (98-107) mmol/L 105 Carbon Dioxide (21.0-32.0) mmol/L 28.2 Anion Gap (3-11) mmol/L 8.8 BUN (7-18) mg/dL 9 Creatinine (0.55-1.02) mg/dL 0.8 Est GFR (CKD-EPI 2020) (mL/min/1.73m2) 88.60 Glucose (74-106) mg/dL 110 H Calcium (8.5-10.1) mg/dL 9.5 Total Bilirubin (0.2-1.0) mg/dL 0.61 AST (15-37) U/L 33 ALT (14-59) U/L 30 Alkaline Phosphatase (46-116) U/L 84 Total Protein (6.4-8.2) g/dL 7.5 Albumin (3.4-5.0) g/dL 3.4 [place] (0.6-1.2) mmol/L < 0.2 L Medical Decision Making Emergent evaluation of speech abnormality. Patient has no other focal neurolog ic findings. She does not really have dysarthric speech, her speech leeroy just seems to be abnormal. Reviewed her medical record and noted the visit in the emergency department and normal CT imaging at that time. She had a teleneuro evaluation that did not recommend further admission or hospitalization. Patient is medically optimized for CVA and apparently her symptoms did resolve. The patient was sent for MRI MRA imaging to further evaluate this return of speech symptoms. The radiology reports were reviewed, and there is no acute findings for stroke or vascular abnormality. When the patient returned from MRI, her speech symptoms have resolved and her neurologic exam was completely normal. She reported to me that she had spoken to her neurologist who had set her up with an outpatient MRI for tomorrow in [place]. She states that she have a neurologist because she has had a stroke previously that this does not appear to be apparent on the MRI that was taken today. She is on aspirin, Plavix and statin. Her symptoms have completely resolved. At this time I do not feel that there is an indication for hospitalization as the patient is already medically optimized and the patient has close neurology follow-up. I recommend that she return to the emergency department with any return of symptoms or other concerns. Quality:[facility] Health Related Social Needs: No Data to Display PFSH All Active Problems Alteration in speech (Acute) Brain TIA (Acute) Social History Smoking/Tobacco Use Status: Never Smoking risk assessment performed?: Yes Alcohol Intake: never Drug use: Never Substance use type: does not use Housing: house Do you feel safe at home: Yes Do you feel safe in your relationship?: Yes
== END 2024-07-11 15:39 | disposition home or self-care (01) ==
PROVIDERS: Emergency Provider Emergency Medicine
DX: R47.89 Other speech disturbances (principal); I63.9 Cerebral infarction, unspecified; Z79.82 Long term (current) use of aspirin; Z79.02 Long term (current) use of antithrombotics/antiplatelets
CPT/HCPCS: 36415; 70544; 70547; 80053; 93005; 99285; 70551; 80178; 85025; 93010

== ENCOUNTER 2024-07-11 20:13 | Emergency (ER) | payer OTHER, MEDICARE, SELFPAY ==
[2024-07-11] VITALS (33 sets, daily range): BP systolic 95–159; BP diastolic 58–130; PULSE 67–93; RESP 15–26; TEMP 36.8; O2SAT 90–97
--- NOTE | 2024-07-11 20:16 | DI.CT_ITS ---
Exam(s) CT HEAD - STROKE PROTOCOL EXAM: CT HEAD - STROKE PROTOCOL CLINICAL HISTORY: Stroke eval. TECHNIQUE: Imaging Protocol: Axial computed tomography images with coronal and sagittal reformatted images were created and reviewed COMPARISON: MR MR BRAIN WO from 07/11/2024 FINDINGS: Ventricles and Extra axial spaces: Normal in size and morphology for the patient's age. Hemorrhage: None. Cerebral parenchyma: No acute territorial infarct. No mass effect is identified. Midline shift: None. Brainstem/Cerebellum: Normal. Calvarium: Normal. Visualized Paranasal sinuses/Mastoids: Clear. Soft Tissues: Unremarkable. IMPRESSION: No acute intracranial process. RADIATION DOSE DELIVERED: 838.81mGy.cm Total DLP DATA REPOSITORY: All CT scans at this facility are submitted to the National Radiology Data Registry (NRDR) Dose Index Registry (DIR) with the [employer] (A[employer]). RADIATION OPTIMIZATION: All CT scans at this facility use at least one of these dose optimization te chniques: automated exposure control; mA and/or kV adjustment per patient size (includes targeted exa ms where dose is matched to clinical indication); or iterative reconstruction.
--- NOTE | 2024-07-11 20:29 | DI.VRAD_ITS ---
PROCEDURE INFORMATION: Exam: CT Head Without Contrast Exam date and time: 07/11/2024 8:13 PM Age: 53 years old Clinical indication: Stroke-like symptoms; Speech disturbance; Additional info: Stroke eval TECHNIQUE: Imaging protocol: Computed tomography of the head without contrast. Radiation optimization: All CT scans at this facility use at least one of these dose optimization techniques: automated exposure control; mA and/or kV adjustment per patient size (includes targeted exams where dose is matched to clinical indication); or iterative reconstruction. Other technique: STROKE PROTOCOL was implemented. COMPARISON: MR ANGIO BRAIN WO 07/11/2024 1:59 PM FINDINGS: Brain: Old lacunar infarction or dilated perivascular space within the left basal ganglia. No intracranial mass, acute hemorrhage, or acute infarction. Cerebral ventricles: No ventriculomegaly. Paranasal sinuses: Visualized sinuses are unremarkable. No fluid levels. Mastoid air cells: Normal as visualized. Bones: Unremarkable. No acute fracture. Soft tissues: Unremarkable. IMPRESSION: No acute intracranial abnormality. ASSESSMENT: ASPECTS ([place] Stroke Program Early CT Score) is 10. Dictated and Authenticated by: Cj Serrano MD. Ordering:JOSE Madrigal MD
[2024-07-11 20:40] LABS: Abs Immature Grans 0.05 10^3/uL (0.0-0.06); Absolute Basophil Count 0.04 10^3/uL (0.0-0.2); Absolute Eosinophil Count 0.32 10^3/uL (0.0-0.7); Absolute Lymphocyte Count 2.98 10^3/uL (1.2-3.4); Absolute Neutrophil Count 6.48 10^3/uL (1.2-6.7); Basophils % 0.4 %; HCT 39.3 % (36.0-46.0); HGB 12.3 g/dL (11.2-15.7); Immature Grans % 0.5 %; Lymphocytes % 27.9 %; MCH 27.4 pg (27.0-33.0); MCHC 31.3 % (32.0-36.0); MCV 88 fL (80-95); MPV 10.3 fL (8.0-11.0); Monocytes % 7.5 %; Neutrophils % 60.7 %; Platelet Count 236 10^3/uL (130-400); RBC 4.49 10^6/uL (3.93-5.22); RDW 14.1 % (11.7-14.6); RDW-SD 45.1 fL; WBC 10.67 10^3/uL (4.4-10.8)
--- NOTE | 2024-07-11 20:48 | W.ED.GENAD ---
Discharge Plan Disposition Patient Disposition: Transfer-Acute Inpatient Care Specific Acute Inpt Facility: [facility] Condition: Improving Discharge Details Chief Complaint: CVA/TIA Clinical Impression: Alteration in speech, Acute CVA (cerebrovascular accident) Primary Care Provider: Unknown,Unknown ED Provider: Nila Rosenthal Home Meds and New Rx's Prescriptions: No Action Ozempic 2 mg/dose (8 mg/3 mL) pen injector 2 mg subcut QWEEK levothyroxine [Synthroid] 50 mcg tablet 50 mcg PO DAILY aspirin 81 mg capsule 81 mg PO DAILY ziprasidone HCl [Geodon] 80 mg capsule 80 mg PO DAILY Rx Instructions: give with food (meal/snack) trazodone 100 mg tablet 200 mg PO DAILY duloxetine [Cymbalta] 60 mg capsule,delayed release(DR/EC) 60 mg PO DAILY lithium carbonate 300 mg tablet 300 mg PO DAILY magnesium oxide 400 mg magnesium capsule 400 mg PO DAILY xarozreltqhm-virifptk-fpcrsc Tablet 1 tab PO DAILY fluticasone propion-salmeterol [Advair Diskus] 250-50 mcg/dose blister with device 1 inh inhalation BID esomeprazole magnesium [Nexium] 20 mg capsule,delayed release(DR/EC) 20 mg PO DAILY celecoxib [Celebrex] 200 mg capsule 200 mg PO DAILY clopidogrel [Plavix] 75 mg tablet 75 mg PO DAILY metformin 1,000 mg tablet 1,000 mg PO BID atorvastatin [Lipitor] 10 mg tablet 10 mg PO DAILY acetaminophen [Tylenol Extra Strength] 500 mg tablet 1,000 mg PO DAILY HPI General Mode of arrival: EMS. Date/Time Provider Initiated Documentation: 07/11/24 20:45. Limitations to Documentation: no limitations. Information obtained by: patient, family, EMS and old records reviewed. HPI Narrative: HPI: This is a 53-year-old female patient with a past medical history significant for hypothyroidism, diabetes, who is presenting for evaluation of speech difficulties. The patient has had 2 additional visits in the last 2 days for the symptoms, which were diagnosed as a TIA. She has had imaging on prior visits to include a CTA head and neck as well as an MRA head and neck and an MRI of the brain, all of which showed no evidence of vessel occlusion or ischemic changes. She was discharged from our hospital at 4 PM this afternoon, and approximately 15 minutes prior to summoning EMS had a sudden onset return of her speech deficits, which are slow and difficult to form. She also endorsed sensory changes on her left arm. The patient reports that she summoned EMS immediately, and unlike her prior episodes where she was evaluated in our department she did not have rapid resolution of her symptoms. She states that she has not sustained any falls, had any changes in her medications or recent illnesses other than the above-noted ED visits for TIA. Exam: Gen: Awake and alert, in no apparent distress HEENT: Non-icteric sclera, pupils are equal and reactive, the patient does have difficulty following the far lateral gazes, with some disconjugate gaze with far left deviation Neck: Supple, no meningismus Lungs: No apparent respiratory distress, normal respiratory effort. CV: Appears well perfused Abdomen: Non-distended MSK: Moves 4 extremities without apparent limitation in ROM Skin: Visualized skin without rashes, cyanosis. Neuro: 5 out of 5 strength x 4 extremities, left arm sensory deficit reported. Cranial nerves II through XII intact and symmetrical bilaterally with the exception of the speech deficits, which are noted to be a slow speech pattern, with clear words once they are formed. Gait deferred Psych: Appropriate for situation. MDM: This is a 53-year-old female patient presenting for evaluation of speech deficits. My differential includes but is not limited to stroke, TIA, intracranial hemorrhage, recrudescence, partial seizure, metabolic and electrolyte derangements, kidney injury, liver disease. No trauma, no reported changes in medications or medication overuse/misuse. Given that this patient has had a recurrence of her neurodeficits and is within the tPA window, we proceeded immediately to CT scan for Noncon head CT after ensuring that the patient was maintaining her airway and was appropriate from a hemodynamic standpoint. Laboratory studies will be obtained per protocol, and [facility] Course: Noncon head CT without evidence of intracranial hemorrhage. I independently interpreted the laboratory studies, which show no significant leukocytosis, anemia, or thrombocytopenia. The chemistry panel is without evidence of electrolyte abnormality, kidney dysfunction, or liver injury. INR 1.0, platelet count normal, troponin negative. Teleneurology evaluated the patient, and as she is having persistent symptoms, has an NIH score of 2, they state that the patient is a tPA candidate. They performed the risks and benefits discussion with the patient, who signed a consent form after having an opportunity for all of her questions to be answered. Given the patient's normal blood pressure, reassuring laboratory studies, and ongoing symptoms, TNK was administered at the recommendation of [facility] teleneuro at 22:25. After approximately 45 minutes the patient had improvement in her speech, continued to be hemodynamically appropriate without hypertension that required intervention. She had no deterioration concerning for post tPA intracranial hemorrhage. [facility] has graciously accepted this patient for transfer to their neuro ICU for ongoing workup and management. Patient left our facility by ambulance without incident. Nila Rosenthal MD Related Data Home Medications ?Medication ?Instructions ?Recorded ?Confirmed acetaminophen 500 mg tablet 1,000 mg PO DAILY 02/15/24 07/11/24 (Tylenol Extra Strength) aspirin 81 mg capsule 81 mg PO DAILY 02/15/24 07/11/24 atorvastatin 10 mg tablet (Lipitor) 10 mg PO DAILY 02/15/24 07/11/24 celecoxib 200 mg capsule (Celebrex) 200 mg PO DAILY 02/15/24 07/11/24 clopidogrel 75 mg tablet (Plavix) 75 mg PO DAILY 02/15/24 07/11/24 duloxetine 60 mg capsule,delayed 60 mg PO DAILY 02/15/24 07/11/24 release (Cymbalta) esomeprazole magnesium 20 mg 20 mg PO DAILY 02/15/24 07/11/24 capsule,delayed release (Nexium) fluticasone 250 mcg-salmeterol 50 1 inh inhalation BID 02/15/24 07/11/24 mcg/dose blistr powdr for inhalation (Advair Diskus) levothyroxine 50 mcg tablet 50 mcg PO DAILY 02/15/24 07/11/24 (Synthroid) lithium carbonate 300 mg tablet 300 mg PO DAILY 02/15/24 07/11/24 magnesium oxide 400 mg PO DAILY 02/15/24 07/11/24 metformin 1,000 mg tablet 1,000 mg PO BID 02/15/24 07/11/24 gjwhrgiaavvq-oakdcatn-hzxlwi tablet 1 tab PO DAILY 02/15/24 07/11/24 semaglutide 2 mg/dose (8 mg/3 mL) 2 mg subcut QWEEK 02/15/24 07/11/24 subcutaneous pen injector (Ozempic) trazodone 100 mg tablet 200 mg PO DAILY 02/15/24 07/11/24 ziprasidone HCl 80 mg capsule 80 mg PO DAILY 02/15/24 07/11/24 (Geodon) Allergies Allergy/AdvReac Type Severity Reaction Status Date / Time Influenza Virus Vaccines Allergy Intermediate Hives Unverified 07/09/24 21:10 Penicillins Allergy Intermediate Skin Rash Unverified 07/09/24 21:10 Sulfa (Sulfonamide Allergy Intermediate Skin Rash Unverified 07/09/24 21:10 Antibiotics) tramadol AdvReac Mild Other (See Unverified 07/09/24 21:10 Comment) General MAITE: 2 Course Lab/Test Results Lab/Test Results: Laboratory Tests Range/Units 07/11/24 20:25 WBC (4.4-10.8) 10^3/uL 10.67 RBC (3.93-5.22) 10^6/uL 4.49 Hgb (11.2-15.7) g/dL 12.3 Hct (36.0-46.0) % 39.3 MCV (80-95) fL 88 MCH (27.0-33.0) pg 27.4 MCHC (32.0-36.0) % 31.3 L RDW (11.7-14.6) % 14.1 Plt Count (130-400) 10^3/uL 236 MPV (8.0-11.0) fL 10.3 Immature Gran % % 0.5 Neutrophils % % 60.7 Lymphocytes % % 27.9 Monocytes % % 7.5 Eosinophils % % 3.0 Basophils % % 0.4 Nucleated RBC % (0.0-0.3) % 0.0 Absolute Neutrophils (1.2-6.7) 10^3/uL 6.48 Absolute Lymphocytes (1.2-3.4) 10^3/uL 2.98 Absolute Monocytes (0.1-0.8) 10^3/uL 0.80 Absolute Eosinophils (0.0-0.7) 10^3/uL 0.32 Absolute Basophils (0.0-0.2) 10^3/uL 0.04 Medical Decision Making Quality:SDOH Health Related Social Needs: No Data to Display Critical Care Time Critical Care Time Critical Care Time: Yes Total Critical Care Time: 60 Attestation: Upon my evaluation, this patient had a high probability of imminent or life-threatening deterioration due to acute stroke requiring thrombolysis, which required my direct attention, intervention, and personal management. I have personally provided 60 minutes of critical care time exclusive of time spent on separately billable procedures. Time includes review of laboratory data, radiology results, discussion with consultants, and monitoring for potential decompensation. Interventions were performed as documented above. Nila Rosenthal MD [facility] All Active Problems (Updated 07/11/24 @ 23:25 by Nila Rosenthal MD) Acute CVA (cerebrovascular accident) (Acute) Alteration in speech (Acute) Brain TIA (Acute) Social History Smoking/Tobacco Use Status: Never Smoking risk assessment performed?: Yes Alcohol Intake: never Drug use: Never Substance use type: does not use Housing: house Do you feel safe at home: Yes Do you feel safe in your relationship?: Yes
[2024-07-11 20:51] LABS: Prothrombin Time 9.6 sec (9.1-11.1)
[2024-07-11 21:02] LABS: ALT 36 U/L (14-59); AST 27 U/L (15-37); Albumin 3.4 g/dL (3.4-5.0); Alkaline Phosphatase 75 U/L (46-116); Anion Gap 6.6 mmol/L (3-11); BUN 12 mg/dL (7-18); Bilirubin, Total 0.59 mg/dL (0.2-1.0); CO2 31.4 mmol/L (21.0-32.0); CREATININE 1.1 mg/dL (0.55-1.02); Calcium 9.5 mg/dL (8.5-10.1); Chloride 105 mmol/L (98-107); Estimated GFR 60.46 (mL/min/1.73m2); Glucose 107 mg/dL (74-106); Magnesium 1.7 mg/dL (1.8-2.4); Potassium 4.3 mmol/L (3.5-5.1); Sodium 143 mmol/L (136-145); Total Protein 7.2 g/dL (6.4-8.2); Troponin I < 4 ng/L (<or=51)
[2024-07-11 22:22] LABS: Troponin I < 4 ng/L (<or=51)
[2024-07-11] MEDS: Tenecteplase 50 MG KIT 25 MG IVP (22:23)
== END 2024-07-11 23:55 | disposition short-term general hospital (02) ==
PROVIDERS: Emergency Provider Emergency Medicine
DX: R47.89 Other speech disturbances (principal); I63.9 Cerebral infarction, unspecified; E11.9 Type 2 diabetes mellitus without complications; Z79.82 Long term (current) use of aspirin; Z79.02 Long term (current) use of antithrombotics/antiplatelets; Z79.85 Long-term (current) use of injectable non-insulin antidiabetic drugs; Z79.84 Long term (current) use of oral hypoglycemic drugs
CPT/HCPCS: 80053; 96374; 99285; 70450; 83735; 84484; 85025; 85610; 99284; J3101

== ENCOUNTER 2024-08-23 19:19 | Emergency (ER) | payer OTHER, MEDICARE, SELFPAY ==
[2024-08-23] VITALS (53 sets, daily range): BP systolic 92–97; BP diastolic 19–60; PULSE 73–87; RESP 13–33; TEMP 35.7; O2SAT 88–100
--- NOTE | 2024-08-23 19:15 | RT.EKG_ITS ---
APPROVED REPORT Exam: Resting ECG Reason for Exam: short of breath Patient Location: E HR:80 bpm ECG Measurements Heart Rate 80 AXIS NH 179 P 38 QRSd 106 QRS -11 QT 429 T 16 QTc 495 Conclusion Sinus rhythm, rate 80 No interval abnormalities No STEMI T wave inversion V1-V3 unchanged from priors
--- NOTE | 2024-08-23 19:30 | DI.RAD_ITS ---
Exam(s) XR CHEST 2V PA LATERAL EXAM: XR CHEST 2V PA LATERAL CLINICAL HISTORY: Cough, asthma, eval PNA TECHNIQUE: 2D digital imaging was performed of the chest. Two images were obtained. PA and lateral views were obtained. COMPARISON: CR,XR XR CHEST 2V PA LATERAL from 07/09/2024 FINDINGS: MEDIASTINUM: Normal. HEART: Normal. PULMONARY VASCULATURE: Normal. LUNGS: Clear. PLEURAL SPACE: No pleural effusion or pneumothorax. BONE:Within normal limits for the patient's age. OTHER FINDINGS:There is again seen elevation of the right hemidiaphragm. IMPRESSION: No acute pulmonary findings. DATA REPOSITORY: RADIATION DOSE DELIVERED:
--- NOTE | 2024-08-23 19:38 | ED.GENADUL_ITS ---
Discharge Plan Disposition Patient Disposition: Home Condition: Stable Discharge Details Clinical Impression: Asthma exacerbation Primary Care Provider: Unknown,Unknown ED Provider: Nila Rosenthal Home Meds and New Rx's Prescriptions: New prednisone 20 mg tablet 40 mg PO DAILY 4 Days Qty: 8 0RF Rx Instructions: Start 08/24/2024 No Action Ozempic 2 mg/dose (8 mg/3 mL) pen injector 2 mg subcut QWEEK levothyroxine [Synthroid] 50 mcg tablet 50 mcg PO DAILY aspirin 81 mg capsule 81 mg PO DAILY ziprasidone HCl [Geodon] 80 mg capsule 80 mg PO DAILY Rx Instructions: give with food (meal/snack) trazodone 100 mg tablet 200 mg PO DAILY duloxetine [Cymbalta] 60 mg capsule,delayed release(DR/EC) 60 mg PO DAILY lithium carbonate 300 mg tablet 300 mg PO DAILY magnesium oxide 400 mg magnesium capsule 400 mg PO DAILY avzactfubiyq-jxgpinta-auoizk Tablet 1 tab PO DAILY fluticasone propion-salmeterol [Advair Diskus] 250-50 mcg/dose blister with device 1 inh inhalation BID esomeprazole magnesium [Nexium] 20 mg capsule,delayed release(DR/EC) 20 mg PO DAILY celecoxib [Celebrex] 200 mg capsule 200 mg PO DAILY clopidogrel [Plavix] 75 mg tablet 75 mg PO DAILY metformin 1,000 mg tablet 1,000 mg PO BID atorvastatin [Lipitor] 10 mg tablet 10 mg PO DAILY acetaminophen [Tylenol Extra Strength] 500 mg tablet 1,000 mg PO DAILY Discharge Instructions Instructions: Asthma, Adult ED Additional Instructions: You were seen in the emergency department today for evaluation of shortness of breath and cough. In our department you had a full physical examination performed, had laboratory studies that were reassuring, had a negative COVID test and an x-ray that shows no evidence of pneumonia. You are likely experiencing an exacerbation of your asthma, though certainly it is possible that you are also sick with another virus that we cannot test for in the emergency department. You received a nebulizer treatment and a dose of steroids to good effect with your breathing. It is safe for you to go home and continue all of your home medications including inhalers and nebulizers. I have provided you with a course of steroids, which you should start tomorrow and take for the next 4 days. This will reduce inflammation in your lungs and make it a little bit easier for you to breathe. You need to follow-up with your primary care provider in the next few days to discuss this visit and any symptoms that change, worsen, or persist. You should return to the emergency department if you have a sudden or severe change or worsening in your breathing, or any other symptoms that cause you concern. Thank you for allowing us to be part of your care. HPI General Mode of arrival: ambulatory . Date/Time Provider Initiated Documentation: 08/23/24 19:29 . Limitations to Documentation: no limitations . Information obtained by: patient and old records reviewed . HPI Narrative: HPI: This is a 53-year-old female patient with a past medical history significant for diabetes, asthma, PFO, CVA, bipolar, who is presenting for evaluation of shortness of breath and cough. The patient reports that for the last 2 weeks she has had upper respiratory symptoms including a cough, sensation of chest congestion, though she notes that she has not had fevers or chills. The patient reports that her son has been sick with an upper respiratory virus at home, she suspects that she caught this from him. She has been using her nebulizer and inhalers with increasing frequency, with some improvement in her work of breathing, though today she had an episode of shortness of breath that was very concerning to her and prompted her to seek care. The patient reports that she is experiencing a mild headache but is not having chest pain or any other pains in her body. She reports that she has not had any hemoptysis or mucus production. She does not use nicotine or tobacco. She states that she has been eating and drinking normally. She has not required systemic steroids for asthma exacerbation or antibiotics recently. Exam: Gen: Awake and alert, in no apparent distress HEENT: Non-icteric sclera Neck: Supple Lungs: The patient has tachypnea and a frequent dry sounding cough. She has diffuse expiratory wheezes and a prolonged expiratory phase throughout her lung eubanks. She is not hypoxic CV: Appears well perfused, strong distal pulses, heart with regular rate and rhythm Abdomen: Non-distended, soft, nontender MSK: Moves 4 extremities without apparent limitation in ROM. No peripheral edema, no unilateral calf swelling or tenderness Skin: Visualized skin without rashes, cyanosis. Neuro: Normal Gait, no obvious focal deficits or facial asymmetry. Speaks in full, clear sentences. Psych: Appropriate for situation. MDM: This is a 53-year-old female patient presenting for evaluation of shortness of breath and cough. My differential includes but is not limited to reactive airway disease exacerbation, pneumonia, viral upper respiratory infection. The patient's physical examination is reassuring against other abnormalities such as pulmonary edema, pneumothorax, pleural effusion. I certainly considered pulmonary embolism though the diffuse wheezing is more concerning for reactive airway disease exacerbation and she has no evidence of DVT symptoms, tachycardia, or hypoxia on physical examination. The patient is not experiencing chest pain to suggest ACS, pericarditis, or myocarditis. Will obtain EKG, chest x-ray, and laboratory studies to include CBC, CMP, magnesium, troponin, and Fluvid. I will provide the patient with a duo nebulizer treatment and a dose of prednisone for initial management. ED Course: I reviewed the patient's laboratory studies, which show no leukocytosis, anemia or thrombocytopenia. Chemistry panel without electrolyte derangements, evidence of kidney dysfunction or liver disease. Troponin is undetectable at less than 4, and the COVID and influenza swab was negative. Independently interpreted the patient's chest x-ray, which shows no cons olidations concerning for pneumonia. Radiology notes mild cardiomegaly, but no other concerning findings. On reassessment the patient's wheezing has resolved, she remains without hypoxia, and she feels much improved. I did provide her with a prescription for a steroid burst for her presumed asthma exacerbation. At this time, the patient has had a full medical evaluation and is safe for discharge to home. They are hemodynamically stable, ambulatory, and tolerating PO. They are understanding of the follow-up plan and return precautions. They left our facility without incident. Nila Rosenthal MD Related Data Home Medications ?Medication ?Instructions ?Recorded ?Confirmed acetaminophen 500 mg tablet 1,000 mg PO DAILY 02/15/24 08/23/24 (Tylenol Extra Strength) aspirin 81 mg capsule 81 mg PO DAILY 02/15/24 08/23/24 atorvastatin 10 mg tablet (Lipitor) 10 mg PO DAILY 02/15/24 08/23/24 celecoxib 200 mg capsule (Celebrex) 200 mg PO DAILY 02/15/24 08/23/24 clopidogrel 75 mg tablet (Plavix) 75 mg PO DAILY 02/15/24 08/23/24 duloxetine 60 mg capsule,delayed 60 mg PO DAILY 02/15/24 08/23/24 release (Cymbalta) esomeprazole magnesium 20 mg 20 mg PO DAILY 02/15/24 08/23/24 capsule,delayed release (Nexium) fluticasone 250 mcg-salmeterol 50 1 inh inhalation BID 02/15/24 08/23/24 mcg/dose blistr powdr for inhalation (Advair Diskus) levothyroxine 50 mcg tablet 50 mcg PO DAILY 02/15/24 08/23/24 (Synthroid) lithium carbonate 300 mg tablet 300 mg PO DAILY 02/15/24 08/23/24 magnesium oxide 400 mg PO DAILY 02/15/24 08/23/24 metformin 1,000 mg tablet 1,000 mg PO BID 02/15/24 08/23/24 srfxdjppbajr-dcywfnta-zdrsuw tablet 1 tab PO DAILY 02/15/24 08/23/24 semaglutide 2 mg/dose (8 mg/3 mL) 2 mg subcut QWEEK 02/15/24 08/23/24 subcutaneous pen injector (Ozempic) trazodone 100 mg tablet 200 mg PO DAILY 02/15/24 08/23/24 ziprasidone HCl 80 mg capsule 80 mg PO DAILY 02/15/24 08/23/24 (Geodon) prednisone 20 mg tablet 40 mg (2 x 20 mg) PO DAILY 4 days 08/23/24 #8 tabs Previous Rx's ?Medication ?Instructions ?Recorded prednisone 20 mg tablet 40 mg (2 x 20 mg) PO DAILY 4 days 08/23/24 #8 tabs Allergies Allergy/AdvReac Type Severity Reaction Status Date / Time Influenza Virus Vaccines Allergy Intermediate Hives Unverified 08/23/24 20:20 Penicillins Allergy Intermediate Skin Rash Unverified 08/23/24 20:20 Sulfa (Sulfonamide Allergy Intermediate Skin Rash Unverified 08/23/24 20:20 Antibiotics) tramadol AdvReac Mild Other (See Unverified 08/23/24 20:20 Comment) General MAITE: 2 Medical Decision Making Quality:SDOH Health Related Social Needs: No Data to Display PFSH All Active Problems (Updated 08/23/24 @ 21:01 by Nila Rosenthal MD) Asthma exacerbation (Acute) Social History Smoking/Tobacco Use Status: Never Smoking risk assessment performed?: Yes Alcohol Intake: never Drug use: Never Substance use type: does not use Housing: house Do you feel safe at home: Yes Do you feel safe in your relationship?: Yes
[2024-08-23 19:44] LABS: Abs Immature Grans 0.02 10^3/uL (0.0-0.06); Absolute Basophil Count 0.03 10^3/uL (0.0-0.2); Absolute Eosinophil Count 0.24 10^3/uL (0.0-0.7); Absolute Neutrophil Count 4.96 10^3/uL (1.2-6.7); Basophils % 0.3 %; Eosinophils % 2.5 %; HCT 41.1 % (36.0-46.0); HGB 12.5 g/dL (11.2-15.7); Immature Grans % 0.2 %; Lymphocytes % 39.4 %; MCH 26.8 pg (27.0-33.0); MCHC 30.4 % (32.0-36.0); MCV 88 fL (80-95); MPV 10.6 fL (8.0-11.0); Monocytes % 6.2 %; Neutrophils % 51.4 %; Platelet Count 234 10^3/uL (130-400); RBC 4.67 10^6/uL (3.93-5.22); RDW 13.6 % (11.7-14.6); RDW-SD 43.8 fL; WBC 9.65 10^3/uL (4.4-10.8)
[2024-08-23] MEDS: predniSONE 20 MG TAB 60 MG PO (19:45)
[2024-08-23] MEDS: Albuterol/Ipratropium 3 ML UPD VIAL UPD (19:45)
[2024-08-23 20:04] LABS: ALT 43 U/L (14-59); AST 34 U/L (15-37); Albumin 3.7 g/dL (3.4-5.0); Alkaline Phosphatase 84 U/L (46-116); BUN 12 mg/dL (7-18); Bilirubin, Total 0.51 mg/dL (0.2-1.0); CREATININE 0.9 mg/dL (0.55-1.02); Calcium 9.2 mg/dL (8.5-10.1); Chloride 106 mmol/L (98-107); Estimated GFR 76.92 (mL/min/1.73m2); Glucose 145 mg/dL (74-106); Magnesium 1.6 mg/dL (1.8-2.4); Potassium 3.7 mmol/L (3.5-5.1); Sodium 143 mmol/L (136-145); Total Protein 7.6 g/dL (6.4-8.2); Troponin I < 4 ng/L (<or=51)
[2024-08-23 20:22] LABS: COVID-19 PCR Negative (Negative); Influenza A PCR Negative (Negative); Influenza B PCR Negative (Negative); RSV PCR Negative (Negative)
[2024-08-23 20:23] LABS: Source NASOPHARYNX
--- OUTSIDE RECORDS SUMMARY | 2024-08-23 20:30 | XMS_ITS | Clinical Summary ---
Author Organization [facility] Address [address] [place] [address] Care Team Providers Care Surg Tech Name Role Phone Ming Evans MD Primary Care Provider [phone] Allergies Active Allergy Reactions Criticality Noted Date Comments Penicillins 03/31/2023 Sulfamethoxazole 03/31/2023 Medications traZODone (DESYREL) 100 mg tablet Take 2 Tablets by mouth 2 times daily. Active ziprasidone (GEODON) 40 mg capsule Take 2 Capsules by mouth daily. Active lithium carbonate 300 mg tablet Take 1 Tablet by mouth daily. Active DULoxetine (CYMBALTA) 20 mg delayed release capsule Take 3 Capsules by mouth daily. Active clopidogreL (PLAVIX) 75 mg tablet Take 1 Tablet by mouth daily. Active aspirin chewable 81 mg tablet Take 1 Tablet by mouth daily. Active esomeprazole (NEXIUM) 20 mg capsule Take 1 Capsule by mouth daily. Active fluticasone propion-salmete roL (ADVAIR) 100-50 mcg/dose diskus inhaler Inhale 1 Puff as directed 2 times daily. Active Encounters Date Type Department Care Team Description 08/16/2024 9:10 EST Office Visit [facility] ENT [address] [place], [place] [id number] Hunter Farr MD Tongue lesion (Primary Dx) 08/16/2024 Travel 07/07/2024 Lab Requisition [facility] Pathology & Laboratory Medicine [address] [address] Outr Resulting Lab, Provider 07/05/2024 Lab Requisition [facility] Pathology & Laboratory [address] [address] Outr Resulting Lab, Provider from Last 3 Months Medical History Medical History Date Comments Bipolar disorder, unspecified (HCC-CMS) Osteoarthritis Social History Tobacco Use Types Packs/Day Years Used Date Smoking Tobacco: Never Smokeless Tobacco: Never Tobacco Cessation:Counseling Given: Not Answered Alcohol Use Standard Drinks/Week Comments Never 0 (1 standard drink = 0.6 oz pur e alcohol) Comments Unknown Sex and Gender Information Value Date Recorded Sex Assigned at Not on file Legal Sex Female 19:55 EDT Gender Identity Female 04/14/2023 15:20 EDT Sexual Orientation Not on file Obstetrics History Last Filed Vital Signs Vital Sign Reading Time Taken Comments Blood Pressure 139/82 04/14/2023 1545 EDT Pulse 99 04/14/2023 1545 EDT Temperature 36.3 ??C (97.3 ??F) 04/14/2023 1545 EDT Respiratory Rate 16 04/14/2023 1545 EDT Oxygen Saturation 95% 04/14/2023 1545 EDT Inhaled Oxygen Concentration - - Weight 109.3 kg (241 lb) 04/14/2023 1545 EDT Height 147.3 cm (4' 10) 04/14/2023 1545 EDT Body Mass Index 50.37 04/14/2023 1545 EDT Plan of Treatment Upcoming Encounters Date Type Department Care Team (Late st Contact Info) Description 09/07/2024 15:40 EST Procedure visit [facility] [place] [facility] ENT [address] [place] [address] Hunter Farr MD [address] [place] [address] [address] [place] [address] Health Maintenance Due Date Last Done Comments Hepatitis C Screen 1970 Hepatitis B Vaccine (1 of 3 - 19+ 3-dose series) 10/12 COVID-19 Vaccine (2023- season) 2024 Procedures Procedure Name Priority Date/Time Associated Diagnosis Comments SPEP WITH IMMUNOTYPING PERFORMABLE Today 07/07/2024 10:44 EDT PROTEIN, TOTAL Today 07/07/2024 10:44 EDT SPEP WITH IMMUNOTYPING Routine 07/07/2024 10:44 EDT LYME AB Routine 07/07/2024 10:44 EDT LITHIUM Routine 07/05/2024 12:37 EDT from Last 3 Months Results * (ABNORMAL) SPEP WITH IMMUNOTYPING PERFORMABLE (07/07/2024 10:44 EDT) Albumin % 57.6 55.8 - 66.1 % 07/08/2024 15:00 [facility] Albumin g/dL 4.3 3.6 - 5.2 g/dL 07/08/2024 15:00 [facility] Alpha-1 % 3.9 2.9 - 4.9 % 07/08/2024 15:00 [facility] Alpha-1 g/dL 0.30 0.15 - 0.40 g/dL 07/08/2024 15:00 [facility] Alpha-2 % 12.0(H) 7.1 - 11.8 % 07/08/2024 15:00 [facility] Alpha-2 g/dL 0.90 0.50 - 1.00 g/dL 07/08/2024 15:00 [facility] Beta % 14.5(H) 8.4 - 13.1 % 07/08/2024 15:00 [facility] Beta g/dL 1.10 0.60 - 1.20 g/dL 07/08/2024 15:00 [facility] Gamma % 12.0 11.1 - 18.8 % 07/08/2024 15:00 [facility] Gamma g/dL 0.90 0.60 - 1.60 g/dL 07/08/2024 15:00 [facility] SPEP Comment No apparent monoclonal protein seen on serum electrophoresis 07/08/2024 15:00 [facility] Comment:See scanned/suppleme ntary report. Immunotyping , Serum Current Interpretation: Negative for monoclonal immunoglobulins. Reviewed by: Lm Tariq MD PhD 07/08/2024 14:04. 07/08/2024 15:00 EDT [facility] Total Protein 7.4 6.3 - 8.2 g/dL 07/08/2024 15:00 EDT [facility] Blood VENOUS BLOOD / Unknown 07/07/2024 10:44 EDT 07/07/2024 21:23 EDT us Provider Outr Resulting Lab CHEMISTRY & BLOOD GA S ORDERABLES Final Result Performing Organization Address [facility]/ZIP Co de Phone Number [facility] [address] [place] [address] * LYME AB (07/07/2024 10:44 EDT) Lyme Ab Negative Negative 07/08/2024 10:56 EDT [facility] Blood VENOUS BLOOD / Unknown 07/07/2024 10:44 EDT 07/07/2024 21:23 EDT Provider Outr Resulting Lab IMMUNOLOGY AND SEROL OGY ORDERABLES Final Result Performing Organization Address [facility] Co de Phone Number [facility] [address] [place] [address] * PROTEIN, TOTAL (07/07/2024 10:44 EDT) Blood VENOUS BLOOD / Unknown 07/07/2024 10:44 EDT 07/07/2024 21:23 EDT us Provider Outr Resulting Lab CHEMISTRY & BLOOD GA S ORDERABLES Final Result Performing Organization Address City/[facility]/ZIP Co de Phone Number [facility] [address] [place] [address] * (ABNORMAL) LITHIUM (07/05/2024 12:37 EDT) [place] 0.5(L) 0.6 - 1.2 mmol/L 07/05/2024 21:35 EDT [facility] Comment: 18 years and older: Therapeutic range: 0.6 - 1.2 mEq/L Potentially toxic: >1.5 mEq/L Therapeutic range not established for individuals <18 years old. Blood VENOUS BLOOD / Unknown 07/05/2024 12:37 EDT 07/05/2024 21:17 EDT us Provider Outr Resulting Lab CHEMISTRY & BLOOD GA S ORDERABLES Final Result [facility] [address] [place] [address] from Last 3 Months Insurance [facility] MEDICARE Care Teams Surg Tech Relationship Specialty Start Date End Date Ming Evans MD [address] [place] [phone] PCP - General Addiction Medicine 03/31/23
--- OUTSIDE RECORDS SUMMARY | 2024-08-23 20:31 | XMS_ITS | Encounter Summary ---
Author Organization [facility] Address [address] [place] [address] Care Team Providers Care Fertilizer Applicator Name Role Phone Ming Evans MD Primary Care Provider [phone] Encounter Details Date Type Department Care Team (Late st Contact Info) Description 05/17/2024 Lab Requisition [facility] Pathology & Laboratory Medicine - [address] [id number] Outr Resulting Lab, Provider Social History Tobacco Use Types Packs/Day Years Used Date Smoking Tobacco: Never Smokeless Tobacco: Never Alcohol Use Standard Drinks/Week Comments Never 0 (1 standard drink = 0.6 oz pur e alcohol) Comments Unknown Sex and Gender Information Value Date Recorded Sex Assigned at Not on file Legal Sex Female 19:55 EDT Gender Identity Female 04/14/2023 15:20 EDT Sexual Orientation Not on file documented as of this encounter Functional Status * Are you deaf or do you have serious difficulty hearing? Answer Date of Assessment Author No 04/14/2023 15:46 EDT Micheline Woodward RN documented as of this encounter Plan of Treatment Upcoming Encounters Date Type Department Care Team (Late st Contact Info) Description 09/07/2024 15:40 EST Procedure visit [facility] ENT [address] [place] [address] Hunter Farr MD [address] [facility] [address] [place] [address] documented as of this encounter Procedures Procedure Name Priority Date/Time Associated Diagnosis Comments LITHIUM Routine 05/17/2024 14:56 EDT documented in this encounter Results * (ABNORMAL) LITHIUM (05/17/2024 14:56 EDT) [place] 0.4(L) 0.6 - 1.2 mmol/L 05/17/2024 20:53 EDT [facility] Comment: 18 years and older: Therapeutic range: 0.6 - 1.2 mEq/L Potentially toxic: >1.5 mEq/L Therapeutic range not established for individuals <18 years old. Blood VENOUS BLOOD / Unknown 05/17/2024 14:56 EDT 05/17/2024 20:33 EDT us Provider Outr Resulting Lab CHEMISTRY & BLOOD GA S ORDERABLES Final Result [facility] [address] [place], [place] [address] documented in this encounter Visit Diagnoses Not on filedocumented in this encounter Care Teams Fertilizer Applicator Relationship Specialty Start Date End Date Ming Evans MD [address] [place] [phone] PCP - General Addiction Medicine 03/31/23 documented as of this encounter
--- OUTSIDE RECORDS SUMMARY | 2024-08-23 20:31 | XMS_ITS | Encounter Summary ---
Author Organization [facility] Address [address] [place] [address] Care Team Providers Care Manager Of Compliance Name Role Phone Mnig Evans MD Primary Care Provider [phone] Reason for Visit * Reason Comments Suture / Staple Removal Pt had stiches p laced on right padron 03/31. Here for removal. Also area looks red and feels hot. Encounter Details Date Type Department Care Team ([facility] st Contact Info) Description 04/14/2023 15:47 EDT - 04/14/2023 16:12 EDT Emergency [facility] Emergency Department [address] [place] [address] Cj Roque MD Cellulitis of right lower leg (Primary Dx); Visit for suture removal Discharge Disposition: Home or Self Care Social History Tobacco Use Types Packs/Day Years Used Date Smoking Tobacco: Never Smokeless Tobacco: Never Alcohol Use Standard Drinks/Week Comments Never 0 (1 standard drink = 0.6 oz pur e alcohol) Comments Unknown Sex and Gender Information Value Date Recorded Sex Assigned at Not on file Legal Sex Female 19:55 EDT Gender Identity Female 04/14/2023 15:20 EDT Sexual Orientation Not on file COVID-19 Exposure Response Date Recorded In the last 10 days, have yo u been in contact with someone who was confirmed or suspected to have Coronavirus/COVID-19? No / Unsure 04/14/2023 15:46 EDT documented as of this encounter Last Filed Vital Signs Vital Sign Reading [...] Body Mass Index 50.37 04/14/2023 1545 EDT documented in this encounter Functional Status * Are you deaf or do you have serious difficulty hearing? Answer Date of Assessment Author No 04/14/2023 15:46 EDT Micheline Woodward RN documented as of this encounter Discharge Instructions * Discharge Instructions* Cj Roque MD - 04/14/2023 16:04 EDT Soak your leg in warm water 3-4 times per day next few days. Keep it clean otherwise. Begin cephalexin 500 mg 4 times per day for a week for infection. Follow-up with your primary care provider if not improving in 3 or 4 days. Return here if worse. documented in this encounter Medications at Time of Discharge aspirin chewable 81 mg tablet Take 1 Tablet by mouth daily. clopidogreL (PLAVIX) 75 mg tablet Take 1 Tablet by mouth daily. DULoxetine (CYMBALTA) 20 mg delayed release capsule Take 3 Capsules by mouth daily. esomeprazole (NEXIUM) 20 mg capsule Take 1 Capsule by mouth daily. fluticasone propion-salmeter oL (ADVAIR) 100-50 mcg/dose diskus inhaler Inhale 1 Puff as directed 2 times daily. lithium carbonate 300 mg tablet Take 1 Tablet by mouth daily. traZODone (DESYREL) 100 mg tablet Take 2 Tablets by mouth 2 times daily. ziprasidone (GEODON) 40 mg capsule Take 2 Capsules by mouth daily. cephalexin (KEFLEX) 500 mg capsule Take 1 Capsule by mouth 4 times daily for 7 days. 28 Capsule 04/14/2023 04/21/2023 documented as of this encounter Ordered Prescriptions Prescription Sig Dispense Quantity Refills Last Filled Start Date End Date cephalexin (KEFLEX) 500 mg capsule Take 1 Capsule by mouth 4 times daily for 7 days. 28 Capsule 04/14/2023 3 documented in this encounter Discharge Disposition Disposition Code Departure Means Destination Comment s Home or Self Residential documented in this encounter ED Notes * Cj Roque MD - 04/14/2023 1612 EDT Emergency Department Visit Assessment and ED Course Patient presenting for suture removal from a right pretibial laceration. She has developed a surrounding cellulitis which she says began about 4 days ago. Sutures removed uneventfully, no drainage from the wound. She will be started on a 1 week course of cephalexin. Indicates understanding of aftercare instructions and return precautions. Final diagnoses: Cellulitis of right lower leg Visit for suture removal Disposition: Discharged Chief complaint: Suture removal HPI Tushar Metzger is a 52 y.o. female who presents to the ED for suture removal. Patient here for suture removal from a right pretibial laceration which she sustained on a piece ofmetal on March 31. She is concerned because the surrounding area has become warm and red over the past 4 days. She denies chills or fever. She has not noted any drainage from the wound. Able to bear weight without discomfort. History was provided by: Patient, review of external notes-03/31/2023 ED visit- right pretibial laceration as above Patient's pertinent PMH, FH, SH were reviewed and edited as necessary. ROS A focused review of systems was performed. Pertinent positives and negatives as noted in HPI. Physical Exam BP 139/82 (BP Cuff Location: Left arm, BP Patient Position: Sitting) Pulse 99 Temp 36.3 ??C (97.3 ??F) (Temporal) Resp 16 Ht (!) 147.3 cm (58) Wt (!) 109.3 kg (241 lb) SpO2 95% BMI 50.37 kg/m?? A medical screening exam was performed. Physical Exam Vitals and nursing note reviewed. Constitutional: General: She is not in acute distress. Appearance: She is well-developed and well-nourished. Eyes: Conjunctiva/sclera: Conjunctivae normal. Cardiovascular: Rate and Rhythm: Normal rate. Pulmonary: Effort: Pulmonary effort is normal. No respiratory distress. Musculoskeletal: General: Normal range of motion. Cervical back: Normal range of motion and neck supple. Comments: Right leg neurovascularly intact. There is a 2 cm transverse laceration to the mid pretibial aspect with sutures in place. There is an area of erythema approximately 5 x 7 cm surrounding the wound, consistent with cellulitis. No drainage. Sutures removed uneventfully. Skin: General: Skin is warm and dry. Neurological: Mental Status: She is alert and oriented to person, place, and time. Psychiatric: Mood and Affect: Mood and affect normal. Laboratory results independently reviewed. Procedures Procedures documented in this encounter Plan of Treatment Upcoming Encounters Date Type Department Care Team (Late st Contact Info) Description 09/07/2024 15:40 EST Procedure visit [facility] ENT [address] [place] [address] Hunter Farr MD [address] [facility] [address] [place] [phone] documented as of this encounter Visit Diagnoses Diagnosis Cellulitis of right lower leg- Primary Cellulitis and abscess of leg, except foot Visit for suture removal Encounter for removal of sutures documented in this encounter Care Teams Manager Of Compliance Relationship Specialty Start Date End Date Ming Evans MD [address] [place] [phone] PCP - General Addiction Medicine 03/31/23 documented as of this encounter
--- OUTSIDE RECORDS SUMMARY | 2024-08-23 20:31 | XMS_ITS | Encounter Summary ---
Author Organization [facility] Address [address] [place] [address] Care Team Providers Care Maintenance Shop Technician Name Role Phone Ming Evans MD Primary Care Provider [phone] Encounter Details Date Type Department Care Team (Late st Contact Info) Description 10/29/2023 Lab Requisition [facility] Pathology & Laboratory Medicine - [facility] [address] [place] [address] Outr Resulting Lab, Provider Social History Tobacco Use Types Packs/Day Years Used Date Smoking Tobacco: Never Assessed Comments Unknown Sex and Gender Information Value [...] Info) Description 09/07/2024 15:40 EST Procedure visit [facility] ENT [address] [place] [address] Hunter Farr MD [address] [facility] [address] [place] [address] documented as of this encounter Procedures Procedure Name Priority Date/Time Associated Diagnosis Comments LITHIUM Routine 10/29/2023 9:15 EST documented in this encounter Results * LITHIUM (10/29/2023 9:15 EST) [place] 0.4 See Note mmol/L 10/29/2023 22:06 EST [facility] Comment: 18 years and older: Therapeutic range: 0.6 - 1.2 mEq/L Potentially toxic: >1.5 mEq/L Therapeutic range not established for individuals <18 years old. Blood VENOUS BLOOD / Unknown 10/29/2023 9:15 EST 10/29/2023 21:56 EST us Provider Outr Resulting Lab CHEMISTRY & BLOOD GA S ORDERABLES Final Result [facility] [address] [place] [address] documented in this encounter Visit Diagnoses Not on filedocumented in this encounter Care Teams Maintenance Shop Technician Relationship Specialty Start Date End Date Ming Evans MD [address] [place] [phone] PCP - General Addiction Medicine 03/31/23 documented as of this encounter
--- OUTSIDE RECORDS SUMMARY | 2024-08-23 20:31 | XMS_ITS | Encounter Summary ---
Author Organization [facility] Address [address] [place] [address] Care Team Providers Care Survey Research Associate Name Role Phone Ming Evans MD Primary Care Provider [phone] Encounter Details Date Type Department Care Team (Latest Contact Info) Description 03/31/2023 Travel Social History Tobacco Use Types Packs/Day Years [...] suspected to have Coronavirus/COVID-19? No / Unsure 03/31/2023 15:19 EDT documented as of this encounter Functional Status * Are you deaf or do you have serious difficulty hearing? Answer Date of Assessment Author No 03/31/2023 15:19 EDT Ellen Thomas, RN documented as of this encounter Plan of Treatment Upcoming Encounters Date Type Department Care Team (Late st Contact Info) Description 09/07/2024 15:40 EST Procedure visit [facility] ENT [address] [place] [address] Hunter Farr MD [address] [facility] [address] [place] [address] documented as of this encounter Visit Diagnoses Not on filedocumented in this encounter Care Teams Survey Research Associate Relationship Specialty Start Date End Date Ming Evans MD [address] [place] [phone] PCP - General Addiction Medicine 03/31/23 documented as of this encounter
--- OUTSIDE RECORDS SUMMARY | 2024-08-23 20:31 | XMS_ITS | Encounter Summary ---
Author Organization [facility] Address [address] [place] [address] Care Team Providers Care Baseball Coach Name Role Phone Ming Evans MD Primary Care Provider [phone] Reason for Visit * Reason Comments Puncture Wound Laceration Laceration to lower right padron from bumping into a sharp metal edge on a bed. Moderate bleeding, subcutaneous tissue is visible. Pt is ambulatory. Encounter Details Date Type Department Care Team ([facility] st Contact Info) Description 03/31/2023 15:25 EDT - 03/31/2023 16:11 EDT Emergency [facility] Emergency Department [address] [place] [address] Chip Florian PA-C [address] [place] [address] Laceration of right lower leg, initial encounter (Primary Dx) Discharge Disposition: Home or Self Care Social [...] 15:19 EDT documented as of this encounter Last Filed Vital Signs Vital Sign Reading Time Taken Comments Blood Pressure 128/74 03/31/2023 1609 EDT Pulse 88 03/31/2023 1609 EDT Temperature 36.7 ??C (98.1 ??F) 03/31/2023 1609 EDT Respiratory Rate 18 03/31/2023 1609 EDT Oxygen Saturation 98% 03/31/2023 1609 EDT Inhaled Oxygen Concentration - - Weight 110.2 kg (243 lb) 03/31/2023 1520 EDT Height 149.9 cm (4' 11) 03/31/2023 1520 EDT Body Mass Index 49.08 03/31/2023 1520 EDT documented in this encounter Functional Status * Are you deaf or do you have serious difficulty hearing? Answer Date of Assessment Author No 03/31/2023 15:19 EDT Ellen Thomas RN documented as of this encounter Discharge Instructions * Discharge Instructions* Chip Florian PA-C - 03/31/2023 16:04 EDT You were seen today for a laceration to your right lower leg. We have irrigated the wound and closed the wound using 3 simple interrupted nylon sutures Be vigilant for signs of infection such as redness, swelling, purulent drainage. Follow-up with express care within 10 to 14 days for wound check and suture removal. Keep the dressing clean and dry for the next 48 hours before getting the wound wet. * Attachments The following attachments cannot be sent through Care Everywhere. * Lacerations: Stitches (Italian) documented in this encounter Medications at Time of Discharge aspirin chewable 81 mg tablet Take 1 Tablet by mouth daily. clopidogreL (PLAVIX) 75 mg tablet Take 1 Tablet by mouth daily. DULoxetine (CYMBALTA) 20 mg delayed release capsule Take 3 Capsules by mouth daily. esomeprazole (NEXIUM) 20 mg capsule Take 1 Capsule by mouth daily. fluticasone propion-salmetero L (ADVAIR) 100-50 mcg/dose diskus inhaler Inhale 1 Puff as directed 2 times daily. lithium carbonate 300 mg tablet Take 1 Tablet by mouth daily. traZODone (DESYREL) 100 mg tablet Take 2 Tablets by mouth 2 times daily. ziprasidone (GEODON) 40 mg capsule Take 2 Capsules by mouth daily. documented as of this encounter Discharge Disposition Disposition Code Departure Means Destination Comment s Home or Self Retirement Pt verbalized understanding of discharge and follow up instructions; OTC medications and wound care reviewed; pt ambulated with steady gait; pt discharged home with no acute distress noted at present. documented in this encounter ED Notes * Miryam Nicholas RN - 03/31/2023 1600 EDT Provider sutured laceration vs puncture to RLE; spoke with Chip REAL and slight pressure dressing applied; pt tolerated without difficulty; pt awaiting MD disposition; SR up x1 with call man in reach;no acute distress noted at present. * Chip Florian PA-C - 03/31/2023 1554 EDTAssociated Order(s): Laceration Repair Emergency Department Visit Medical Decision Making This is a 52-year-old female presenting to the emerged part with complaints of a laceration to her right lower leg after cutting it on a metal object prior to arrival. She is anticoagulated and noticed a moderate amount of bleeding. She is up-to-date on her tetanus. On exam she has a 2 cm laceration to the anterior aspect of the right lower leg. Wound was anesthetized and subsequently irrigated prior to closure. See procedure note below. Encouraged vigilance and follow-up within 10 days for wound check and suture removal. Medical Decision Making Laceration of right lower leg, initial encounter: acute illness or injury Final diagnoses: Laceration of right lower leg, initial encounter Disposition: Discharged Chief complaint: Right lower leg laceration PETEY Metzger is a 52 y.o. female who presents to the ED for a laceration to her right lower leg. She states she was walking in her son's bedroom when a metal object was sticking out of his bed and cut her right lower leg. She is anticoagulated noticed there was a moderate amount of bleeding from the wound. She is up-to-date with her tetanus. History was provided by: Patient Records reviewed include: None Patient's pertinent PMH, FH, SH were reviewed and edited as necessary. Nursing notes reviewed. A medical screening exam was performed. Physical Exam BP 128/74 (BP Cuff Location: Left arm, BP Patient Position: Sitting) Pulse 88 Temp 36.7 ??C (98.1 ??F) (Oral) Resp 18 Ht (!) 149.9 cm (59) Wt (!) 110.2 kg (243 lb) SpO2 98% BMI 49.08 kg/m?? Physical Exam Vitals and nursing note reviewed. Constitutional: General: She is not in acute distress. Appearance: Normal appearance. HENT: Head: Normocephalic and atraumatic. Nose: Nose normal. Mouth/Throat: Mouth: Mucous membranes are moist. Eyes: Pupils: Pupils are equal, round, and reactive to light. Cardiovascular: Rate and Rhythm: Normal rate. Pulses: Normal pulses. Pulmonary: Effort: Pulmonary effort is normal. Musculoskeletal: Cervical back: Normal range of motion and neck supple. Right lower leg: Laceration (2 cm laceration to the anterior right lower leg) present. Skin: General: Skin is warm and dry. Neurological: General: No focal deficit present. Mental Status: She is alert and oriented to person, place, and time. Psychiatric: Mood and Affect: Mood normal. Behavior: Behavior normal. Procedures Laceration Repair Performed by: Chip Florian PA-C Authorized by: Chip Florian PA-C Consent: Consent obtained: Verbal Consent given by: Patient Risks, benefits, and alternatives were discussed: yes Risks discussed: Infection, pain, retained foreign body, tendon damage, vascular damage, poor woundhealing, poor cosmetic result, need for additional repair and nerve damage Alternatives discussed: No treatment [place] protocol: Patient identity confirmed: Verbally with patient Anesthesia: Anesthesia method: Local infiltration Local anesthetic: Lidocaine 1% WITH epi Laceration details: Location: Leg Leg location: R lower leg Length (cm): 2 Pre-procedure details: Preparation: Patient was prepped and draped in usual sterile fashion Exploration: Limited defect created (wound extended): no Hemostasis achieved with: Direct pressure Imaging outcome: foreign body not noted Wound exploration: wound explored through full range of motion and entire depth of wound visualized Contaminated: no Treatment: Area cleansed with: Soap and water Amount of cleaning: Standard Irrigation solution: Tap water Irrigation method: Syringe Visualized foreign bodies/material removed: no Debridement: None Undermining: None Scar revision: no Skin repair: Repair method: Sutures Suture size: 4-0 Suture material: Nylon Suture technique: Simple interrupted Number of sutures: 3 Approximation: Approximation: Close Repair type: Repair type: Simple Post-procedure details: Dressing: Non-adherent dressing and bulky dressing Procedure completion: Tolerated * Miryam Nicholas RN - 03/31/2023 1535 EDT Pt awake and resting quietly at present; resp even and unlabored; laceration/puncture to RLE noted;pt awaiting results and MD disposition; SR up x1 with call man in reach; no acute distress noted at present. documented in this encounter Plan of Treatment Upcoming Encounters Date Type Department Care Team (Late st Contact Info) Description 09/07/2024 15:40 EST Procedure visit [facility] ENT [address] [place] [address] Hunter Farr MD [address] [place] [address] [address] [place] [address] documented as of this encounter Procedures Procedure Name Priority Date/Time Associated Diagnosis Comments ED LACERATION REPAIR Routine 03/31/2023 15:54 EDT ED LACERATION REPAIR Routine 03/31/2023 15:54 EDT documented in this encounter Results * FL SIMPLE REPAIR SCALP/NECK/AX/GENIT/TRUNK 2.5CM/<, HC - SIMPLE REPAIR SCALP/NECK/AX/GENIT/TRUNK2.5CM/< (03/31/2023 15:54 EDT) Narrative [facility] EKG - 03/31/2023 15:54 EDT Chip Florian PA-C ? 04/09/2023 23:24 Laceration Repair Performed by: Chip Florian PA-C Authorized by: Chip Florian PA-C ?? Consent: ??Consent obtained: ??Verbal ??Consent given by: ??Patient ??Risks, benefits, and alternatives were discussed: yes ?Risks discussed: ??Infection, pain, retained foreign body, tendon damage, vascular damage, poor wound healing, poor cosmetic result, need for additional repair and nerve damage ??Alternatives discussed: ??No treatment [place] protocol: ??Patient identity confirmed: ??Verbally with patient Anesthesia: ??Anesthesia method: ??Local infiltration ??Local anesthetic: ??Lidocaine 1% WITH epi Laceration details: ??Location: ??Leg ??Leg location: ??R lower leg ??Length (cm): ??2 Pre-procedure details: ??Preparation: ??Patient was prepped and draped in usual sterile fashion Exploration: ??Limited defect created (wound extended): no ?Hemostasis achieved with: ??Direct pressure ??Imaging outcome: foreign body not noted ?Wound exploration: wound explored through full range of motion and entire depth of wound visualized ?Contaminated: no ?? Treatment: ??Area cleansed with: ??Soap and water ??Amount of cleaning: ??Standard ??Irrigation solution: ??Tap water ??Irrigation method: ??Syringe ??Visualized foreign bodies/material removed: no ?Debridement: ??None ??Undermining: ??None ??Scar revision: no ?? Skin repair: ??Repair method: ??Sutures ??Suture size: ??4-0 ??Suture material: ??Nylon ??Suture technique: ??Simple interrupted ??Number of sutures: ??3 Approximation: ??Approximation: ??Close Repair type: ??Repair type: ??Simple Post-procedure details: ??Dressing: ??Non-adherent dressing and bulky dressing ??Procedure completion: ??Tolerated us Chip Florian PA-C PROCEDURE/MINOR SURGICAL ORDERAB LES Final Result [facility] EKG documented in this encounter Visit Diagnoses Diagnosis Laceration of right lower leg, initial encounter- Primary documented in this encounter Historical Medications * This list may reflect changes made after this encounter. fluticasone propion-salmetero L (ADVAIR) 100-50 mcg/dose diskus inhaler Inhale 1 Puff as directed 2 times daily. esomeprazole (NEXIUM) 20 mg capsule Take 1 Capsule by mouth daily. aspirin chewable 81 mg tablet Take 1 Tablet by mouth daily. clopidogreL (PLAVIX) 75 mg tablet Take 1 Tablet by mouth daily. DULoxetine (CYMBALTA) 20 mg delayed release capsule Take 3 Capsules by mouth daily. lithium carbonate 300 mg tablet Take 1 Tablet by mouth daily. ziprasidone (GEODON) 40 mg capsule Take 2 Capsules by mouth daily. traZODone (DESYREL) 100 mg tablet Take 2 Tablets by mouth 2 times daily. added in this encounter Care Teams Baseball Coach Relationship Specialty Start Date End Date Ming Evans MD [address] [place] [id number] PCP - General Addiction Medicine 03/31/23 documented as of this encounter
--- OUTSIDE RECORDS SUMMARY | 2024-08-23 20:31 | XMS_ITS | Encounter Summary ---
Author Organization [facility] Address [address] [place] [address] Care Team Providers Care Carry Out Clerk And Shelf Stocker Name Role Phone Ming Evans MD Primary Care Provider [phone] Encounter Details Date Type Department Care Team (Late st Contact Info) Description 11/14/2022 Lab Requisition [facility] Pathology & Laboratory Medicine - [address] [address] Elina Hogan FNP [address] [place] [address] Encounter for general adult medical examination with abnormal findings Social History Tobacco Use Types Packs/Day Years Used Date Smoking Tobacco: Never Assessed Comments Unknown Sex and Gender Information Value Date Recorded Sex Assigned at Not on file Legal Sex Female 19:55 EDT Gender Identity Female 04/14/2023 15:20 EDT Sexual Orientation Not on file documented as of this encounter Plan of Treatment Upcoming Encounters Date Type Department Care Team (Late st Contact Info) Description 09/07/2024 15:40 EST Procedure visit [facility] ENT [address] [place], [place] [id number] Hunter Farr MD [address] [facility] [address] [place] [address] documented as of this encounter Procedures Procedure Name Priority Date/Time Associated Diagnosis Comments PAP TEST Today 11/14/2022 14:25 EST HPV DNA DETECTION WITH GENOTYPING, PCR Today 11/14/2022 14:25 EST documented in this encounter Results * HUMAN PAPILLOMAVIRUS (HPV) DETECTION-HIGH RISK TYPES (11/14/2022 14:25 EST) HPV other High Risk types, PCR Negative Negative 12/01/2022 17:36 [facility] Comment:No E6 or E7 mRNA is detected from HPV types 16,18,31,33,35,39,45,51,52,56,58,59,66, and 68 by coal sample tester mediated amplification. Papanicolaou smear specimen (specimen) CERVIX UTERI STRUCTURE / Unknown 11/14/2022 14:25 EST 11/28/2022 15:20 EST Elina Hogan EXCHANGE ADMINISTRATOR MICROBIOLOGY - GENERAL ORDER JAKY Final Result [facility] [address] [place] [address] * PAP TEST (11/14/2022 14:25 EST) Specimens A. Cervix and/or Endocervix , ThinPrep Imaging System with Manual Evaluation 12/01/2022 17:36 [facility] Specimen Adequacy Satisfactory for Evaluation - transformation zone component present 12/01/2022 17:36 [facility] General Categorization Negative for intraepithelial lesion or malignancy 12/01/2022 17:36 [facility] Descriptive Diagnosis Reactive cellular changes associated with inflammation present (includes repair). Shift in refugio present suggestive of bacterial vaginosis. 12/01/2022 17:36 [facility] Attestation By the signature below, the attending physician certifies that they have personally conducted a gross and/or microscopic examination of the described specimens and rendered or confirmed the above diagnosis. 12/01/2022 17:36 [facility] at 1736 Clinical History Clinical History, Signs, Symptoms, Chief Complaint, Pertaining to This Order: See below Last Menstral Period: POST MENOPAUSAL Prior Gynecologic Pathology?: Yes Hormone/Contracep tive Use?: No 12/01/2022 17:36 EST [facility] HPV The result for the Human Papillomavirus (HPV) Detection-High Risk Types is Negative. No E6 or E7 mRNA is detected from HPV types 16,18,31,33,35,39 ,45,51,52,56,58,5 9,66, and 68 by coal sample tester mediated amplification.Supriya ting was performed on specimen [id number] and was resulted on 12/01/2022 1736 EST by NEGRITA, LAB INSTRUMENT RESULTS IN 12/01/2022 17:36 EST [facility] Performing Lab [facility] 12/01/2022 17:36 EST [facility] Scanned Images 12/01/2022 17:36 EST [facility] Papanicolaou smear specimen (specimen) CERVIX UTERI STRUCTURE / Unknown 11/14/2022 14:25 EST 11/17/2022 14:34 EST us Elina Hogan EXCHANGE ADMINISTRATOR PATHOLOGY ORDERABLES Final R esult [facility] [address] [place] [address] documented in this encounter Visit Diagnoses Diagnosis Encounter for general adult medical examination with abnormal findings Unspecified general medical examination documented in this encounter Care Teams Carry Out Clerk And Shelf Stocker Relationship Specialty Start Date End Date iMng Evans MD [address] [place] [address] PCP - General Addiction Medicine 03/31/23 documented as of this encounter
--- OUTSIDE RECORDS SUMMARY | 2024-08-23 20:31 | XMS_ITS | Encounter Summary ---
Author Organization [facility] Address [address] [place] [address] Care Team Providers Care Brake Operator Name Role Phone Ming Evans MD Primary Care Provider Encounter Details Date Type Department Care Team (Latest Contact Info) Description 08/16/2024 Travel Social History Tobacco Use Types Packs/Day [...] Info) Description 09/07/2024 15:40 EST Procedure visit [facility] ENT [address] [place], [place] [id number] Hunter Farr MD [address] [facility] [address] [place] [address] documented as of this encounter Visit Diagnoses Not on filedocumented in this encounter Care Teams Brake Operator Relationship Specialty Start Date End Date Ming Evans MD [address] [place] [address] PCP - General Addiction Medicine 03/31/23 documented as of this encounter
--- OUTSIDE RECORDS SUMMARY | 2024-08-23 20:31 | XMS_ITS | Encounter Summary ---
Author Organization [facility] Address [address] [place] [address] Care Team Providers Care Real Estate Specialist Name Role Phone Ming Evans MD Primary Care Provider [phone] Encounter Details Date Type Department Care Team (Late st Contact Info) Description 01/01/2022 Lab Requisition [facility] Pathology & Laboratory Medicine - [address] [address] Outr Resulting Lab, Provider Social History Tobacco [...] Info) Description 09/07/2024 15:40 EST Procedure [facility] [address] [place] [address] Hunter Farr MD [address] [facility] [address] [place] [address] documented as of this encounter Procedures Procedure Name Priority Date/Time Associated Diagnosis Comments LITHIUM Routine 01/01/2022 12:06 EDT documented in this encounter Results * LITHIUM (01/01/2022 12:06 EDT) [place] 0.3 See Note mmol/L 01/01/2022 21:19 EDT [facility] Comment: 18 years and older: Therapeutic range: 0.6 - 1.2 mEq/L Potentially toxic: >1.5 mEq/L Therapeutic range not established for individuals <18 years old. Blood VENOUS BLOOD / Unknown 01/01/2022 12:06 EDT 01/01/2022 21:06 EDT us Provider Outr Resulting Lab CHEMISTRY & BLOOD GA S ORDERABLES Final Result Performing Organization Address City/State/[facility] Co de Phone Number [facility] [address] [place] [address] documented in this encounter Visit Diagnoses Not on filedocumented in this encounter Care Teams Real Estate Specialist Relationship Specialty Start Date End Date Ming Evans MD [address] [place] [phone] PCP - General Addiction Medicine 03/31/23 documented as of this encounter
--- OUTSIDE RECORDS SUMMARY | 2024-08-23 20:31 | XMS_ITS | Referral Summary ---
Author Organization [facility] Address [address] [place] [address] Care Team Providers Care Fuel Injection Servicer Name Role Phone Ming Evans MD Primary Care Provider [phone] Encounters Date Type Department Care Team Description 08/16/2024 Travel 08/16/2024 9:10 EST Office Visit [facility] ENT [address] [place], [place] [address] Hunter Farr MD Tongue lesion (Primary Dx) 07/07/2024 Lab Requisition [facility] Medicine [address] [address] Outr Resulting Lab, Provider 07/05/2024 Lab Requisition [facility] Laboratory [address] [address] Outr Resulting Lab, Provider from Last 3 Months Allergies Active Allergy Reactions Criticality Noted Date [...] Puff as directed 2 times daily. Active Social History Tobacco Use Types Packs/Day Years [...] 15:20 EDT Sexual Orientation Not on file Last Filed Vital Signs Vital Sign Reading [...] Body Mass Index 50.37 04/14/2023 1545 EDT Functional Status * Are you deaf or do you have serious difficulty hearing? Answer Date of Assessment Author No 04/14/2023 15:46 EDT Micheline Woodward RN Plan of Treatment Upcoming Encounters Date Type Department Care Team (Late st Contact Info) Description 09/07/2024 15:40 EST [facility] [address] [place] [address] Hunter Farr MD [address] [place] [address] [address] [place] [address] Procedures Procedure Name Priority Date/Time Associated Diagnosis Comments SPEP WITH IMMUNOTYPING PERFORMABLE Today 07/07/2024 10:44 EDT PROTEIN, TOTAL Today 07/07/2024 10:44 EDT SPEP WITH IMMUNOTYPING Routine 07/07/2024 10:44 EDT LYME AB Routine 07/07/2024 10:44 EDT LITHIUM Routine 07/05/2024 12:37 EDT from Last 3 Months Results * (ABNORMAL) SPEP WITH IMMUNOTYPING PERFORMABLE (07/07/2024 10:44 EDT) Albumin % 57.6 55.8 - 66.1 % 07/08/2024 15:00 [facility] Albumin g/dL 4.3 3.6 - 5.2 g/dL 07/08/2024 15:00 [facility] Alpha-1 % 3.9 2.9 - 4.9 % 07/08/2024 15:00 [facility] Alpha-1 g/dL 0.30 0.15 - 0.40 g/dL 07/08/2024 15:00 [facility] Alpha-2 % 12.0(H) 7.1 - 11.8 % 07/08/2024 15:00 [facility] Alpha-2 g/dL 0.90 0.50 - 1.00 g/dL 07/08/2024 15:00 [facility] Beta % 14.5(H) 8.4 - 13.1 % 07/08/2024 15:00 [facility] Beta g/dL 1.10 0.60 - 1.20 g/dL 07/08/2024 15:00 [facility] Gamma % 12.0 11.1 - 18.8 % 07/08/2024 15:00 [facility] Gamma g/dL 0.90 0.60 - 1.60 g/dL 07/08/2024 15:00 [facility] SPEP Comment No apparent monoclonal protein seen on serum electrophoresis 07/08/2024 15:00 [facility] Comment:See scanned/suppleme ntary report. Immunotyping , Serum Current Interpretation: Negative for monoclonal immunoglobulins. Reviewed by: Lm Tariq MD PhD 07/08/2024 14:04. 07/08/2024 15:00 EDT [facility] Total Protein 7.4 6.3 - 8.2 g/dL 07/08/2024 15:00 EDT [facility] Blood VENOUS BLOOD / Unknown 07/07/2024 10:44 EDT 07/07/2024 21:23 EDT us Provider Outr Resulting Lab CHEMISTRY & BLOOD GA S ORDERABLES Final Result [facility] [address] [place] [address] * LYME AB (07/07/2024 10:44 EDT) [facility] [place] Ab Negative Negative 07/08/2024 10:56 EDT [facility] Blood VENOUS BLOOD / Unknown 07/07/2024 10:44 EDT 07/07/2024 21:23 EDT us Provider Outr Resulting Lab IMMUNOLOGY AND SEROL OGY ORDERABLES Final Result Performing Organization Address [facility] Co de Phone Number [facility] [address] [place] [address] * PROTEIN, TOTAL (07/07/2024 10:44 EDT) Blood VENOUS BLOOD / Unknown 07/07/2024 10:44 EDT 07/07/2024 21:23 EDT us Provider Outr Resulting Lab CHEMISTRY & BLOOD GA S ORDERABLES Final Result Performing Organization Address [facility] Co de Phone Number [facility] [address] [place] [address] * (ABNORMAL) LITHIUM (07/05/2024 12:37 EDT) [facility] [place] 0.5(L) 0.6 - 1.2 mmol/L 07/05/2024 21:35 EDT [facility] Comment: 18 years and older: Therapeutic range: 0.6 - 1.2 mEq/L Potentially toxic: >1.5 mEq/L Therapeutic range not established for individuals <18 years old. Blood VENOUS BLOOD / Unknown 07/05/2024 12:37 EDT 07/05/2024 21:17 EDT us Provider Outr Resulting Lab CHEMISTRY & BLOOD GA S ORDERABLES Final Result Performing Organization Address City/State/[facility] Co de Phone Number [facility] [address] [place] [address] from Last 3 Months Insurance [facility] MED[facility] Care Teams Fuel Injection Servicer Relationship Specialty Start Date End Date Ming Evans MD [address] [place] [phone] PCP - General Addiction Medicine 03/31/23
--- OUTSIDE RECORDS SUMMARY | 2024-08-23 20:31 | XMS_ITS | Encounter Summary ---
Author Organization [facility] Address [address] [place] [address] Care Team Providers Care Light Rail Signal Technician Name Role Phone Ming Evans MD Primary Care Provider [phone] Encounter Details Date Type Department Care Team (Late st Contact Info) Description 11/02/2022 Lab Requisition [facility] Pathology & Laboratory Medicine - [address] [address] Outr Resulting Lab, Provider Social History Tobacco [...] Info) Description 09/07/2024 15:40 EST Procedure visit [facility] [address] [place] [address] Hunter Farr MD [address] [facility] [address] [place] [address] documented as of this encounter Procedures Procedure Name Priority Date/Time Associated Diagnosis Comments LITHIUM Routine 11/01/2022 19:05 EST documented in this encounter Results * LITHIUM (11/01/2022 19:05 EST) [place] <0.2 See Note mmol/L 11/02/2022 17:55 EST [facility] Comment: 18 years and older: Therapeutic range: 0.6 - 1.2 mEq/L Potentially toxic: >1.5 mEq/L Therapeutic range not established for individuals <18 years old. Blood VENOUS BLOOD / Unknown 11/01/2022 19:05 EST 11/02/2022 17:41 EST us Provider Outr Resulting Lab CHEMISTRY & BLOOD GA S ORDERABLES Final Result Performing Organization Address City/State/[facility] Co de Phone Number [facility] [address] [place] [address] documented in this encounter Visit Diagnoses Not on filedocumented in this encounter Care Teams Light Rail Signal Technician Relationship Specialty Start Date End Date Ming Evans MD [address] [place] [address] PCP - General Addiction Medicine 03/31/23 documented as of this encounter
--- OUTSIDE RECORDS SUMMARY | 2024-08-23 20:31 | XMS_ITS | Encounter Summary ---
Author Organization [facility] Address [address] [place] [address] Care Team Providers Care Laborer Demolition Name Role Phone Ming Evans MD Primary Care Provider [phone] Encounter Details Date Type Department Care Team (Late st Contact Info) Description 02/10/2021 Lab Requisition [facility] Pathology & Laboratory Medicine - [address] [phone] Outr Resulting Lab, Provider Social History Tobacco [...] Description 09/07/2024 15:40 EST [facility] [address] [place] [address] Hunter Farr MD [address] [facility] [address] [place] [address] documented as of this encounter Procedures Procedure Name Priority Date/Time Associated Diagnosis Comments LITHIUM Routine 02/10/2021 11:45 EDT documented in this encounter Results * LITHIUM (02/10/2021 11:45 EDT) [place] 0.3 See Note mEq/L 02/10/2021 17:26 EDT [facility] Comment: 18 years and older: Therapeutic range: 0.6 - 1.2 mEq/L Potentially toxic: >1.5 mEq/L Therapeutic range not established for individuals <18 years old. Blood VENOUS BLOOD / Unknown 02/10/2021 11:45 EDT 02/10/2021 17:16 EDT us Provider Outr Resulting Lab CHEMISTRY & BLOOD GA S ORDERABLES Final Result Performing Organization Address City/State/[facility] Co de Phone Number [facility] [address] [place] [address] documented in this encounter Visit Diagnoses Not on filedocumented in this encounter Care Teams Laborer Demolition Relationship Specialty Start Date End Date Ming Evans MD [address] [place] [address] PCP - General Addiction Medicine 03/31/23 documented as of this encounter
--- OUTSIDE RECORDS SUMMARY | 2024-08-23 20:31 | XMS_ITS | Encounter Summary ---
Author Organization [facility] Address [address] [place] [address] Care Team Providers Care Medical Technologist Blood Bank Name Role Phone Ming Evans MD Primary Care Provider Encounter Details Date Type Department Care Team (Late st Contact Info) Description 07/05/2024 Lab Requisition [facility] Pathology & Laboratory Medicine - [facility] [address] [place], [place] [address] Outr Resulting Lab, Provider Social History Tobacco [...] Info) Description 09/07/2024 15:40 EST Procedure visit [facility] ENT [address] [place] [address] Hunter Farr MD [address] [facility] [address] [place] [address] documented as of this encounter Procedures Procedure Name Priority Date/Time Associated Diagnosis Comments LITHIUM Routine 07/05/2024 12:37 EDT documented in this encounter Results * (ABNORMAL) LITHIUM (07/05/2024 12:37 EDT) [place] 0.5(L) 0.6 - 1.2 mmol/L 07/05/2024 21:35 EDT [facility] Comment: 18 years and older: Therapeutic range: 0.6 - 1.2 mEq/L Potentially toxic: >1.5 mEq/L Therapeutic range not established for individuals <18 years old. Blood VENOUS BLOOD / Unknown 07/05/2024 12:37 EDT 07/05/2024 21:17 EDT us Provider Outr Resulting Lab CHEMISTRY & BLOOD GA S ORDERABLES Final Result [facility] [address] [place], [place] [address] documented in this encounter Visit Diagnoses Not on filedocumented in this encounter Care Teams Medical Technologist Blood Bank Relationship Specialty Start Date End Date Ming Evans MD [address] [place] [phone] PCP - General Addiction Medicine 03/31/23 documented as of this encounter
--- OUTSIDE RECORDS SUMMARY | 2024-08-23 20:31 | XMS_ITS | Encounter Summary ---
Author Organization [facility] Address [address] [place] [address] Care Team Providers Care Umbrella Tipper Machine Name Role Phone Ming Evans MD Primary Care Provider [phone] Reason for Visit * Reason Comments New Patient Visit Tongue lesion, nothi ng makes it better, eating food makes it worse . Been there for a few months, tried mouth washes dose not help, she feels like its getting bigger * Referral (Routine) - Authorization Not Required Specialty Diagnoses / Procedures [facility] Referred To Contact Otolaryngology Diagnoses Tongue lesion Mimi Stallworth MD [address] [place] [phone] Phone: tel: fax: [facility] ENT [address] [place] [address] Phone: tel: fax: Referral ID Status Reason Start Date Expiration Date Visits Requested Visits Authorized [id number] Authorization Not Required 1 1 Encounter Details Date Type Department Care Team (Late st Contact Info) Description 08/16/2024 9:10 EST Office Visit [facility] ENT [address] [place] [address] Hunter Farr MD [address] [place] [address] [address] Tongue lesion (Primary Dx) Social History Tobacco Use Types Packs/Day Years [...] of Assessment Author No 04/14/2023 15:46 EDT iMcheline Woodward RN documented as of this encounter Progress Notes * Hunter Farr MD - 08/16/2024 0910 EST CHIEF COMPLAINT: Tongue lesion HPI: 53-year-old female with a left lateral tongue lesion over the past several months. No history of trauma or infection. It was larger but has decreased in size. Her symptoms are worse with eating.She is requesting excision. Past Medical History: Diagnosis Date Bipolar disorder, unspecified ([facility]) Osteoarthritis No past surgical history on file. Allergies Allergen Reactions Penicillins Sulfamethoxazole Outpatient Medications Marked as Taking for the 08/16/24 encounter (Office Visit) with Hunter Farr MD Medication Sig Dispense Refill aspirin chewable 81 mg tablet Take 1 Tablet by mouth daily. clopidogreL (PLAVIX) 75 mg tablet Take 1 Tablet by mouth daily. DULoxetine (CYMBALTA) 20 mg delayed release capsule Take 3 Capsules by mouth daily. esomeprazole (NEXIUM) 20 mg capsule Take 1 Capsule by mouth daily. fluticasone propion-salmeteroL (ADVAIR) 100-50 mcg/dose diskus inhaler Inhale 1 Puff as directed 2 times daily. lithium carbonate 300 mg tablet Take 1 Tablet by mouth daily. traZODone (DESYREL) 100 mg tablet Take 2 Tablets by mouth 2 times daily. ziprasidone (GEODON) 40 mg capsule Take 2 Capsules by mouth daily. No family history on file. Social History Socioeconomic History Marital status: Spouse name: Not on file Number of children: Not on file Years of education: Not on file Highest education level: Not on file Occupational History Not on file Tobacco Use Smoking status: Never Smokeless tobacco: Never Substance and Sexual Activity Alcohol use: Never Drug use: Never Sexual activity: Not on file Other Topics Concern Not on file Social History Narrative Not on file Health Related Social Needs Financial Strain: Not on file Food Insecurity: No Food Insecurity (07/12/2024) Received from [facility] Hunger Vital Sign Worried About Running Out of Food in the Last Year: Never true Ran Out of Food in the Last Year: Never true Transportation Needs: Unmet Transportation Needs (07/12/2024) Received from [facility] PRAPARE - Transportation Lack of Transportation (Medical): Yes Lack of Transportation (Non-Medical): No Physical Activity: Not on file Housing Stability: Low Risk (07/12/2024) Received from [facility] Housing Stability Vital Sign Unable to Pay for Housing in the Last Year: No Number of Times Moved in the Last Year: 0 Homeless in the Last Year: No REVIEW OF SYSTEMS: Significant thyroid problems blurred vision muscle joint and back pain bleeding problems bruising anxiety depression heartburn reflux otherwise negative for complete review of all systems PHYSICAL EXAM: There were no vitals taken for this visit. General: Well-developed well-nourished cooperative adult female no acute distress. Normal voice. The face is normal without lesions. Facial strength is symmetric. Eye exam is normal. Ears: External ears are normal canals are clear tympanic membranes are normal hearing is intact. Nose: Nasal dorsum is midline airways patent. Oral cavity: There is a small raised round papule on the left lateral tongue approximate 5 mm. No other oral lesions are noted. Posterior pharynx is clear. Neck: No pathologic lymphadenopathy trachea is midline thyroid is normal. 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 PLAN: Will schedule patient for excision under local anesthesia. Patient will stop taking aspirin and Plavix prior to the procedure. documented in this encounter Plan of Treatment Upcoming Encounters Date Type Department Care Team (Late st Contact Info) Description 09/07/2024 15:40 EST Procedure visit [facility] ENT [address] [place] [address] Hunter Farr MD [address] [facility] [address] [place] [address] documented as of this encounter Visit Diagnoses Diagnosis Tongue lesion- Primary Other specified conditions of the tongue documented in this encounter Care Teams Umbrella Tipper Machine Relationship Specialty Start Date End Date Ming Evans MD [address] [place] [phone] PCP - General Addiction Medicine 03/31/23 documented as of this encounter
--- OUTSIDE RECORDS SUMMARY | 2024-08-23 20:31 | XMS_ITS | Encounter Summary ---
Author Organization [facility] Address [address] [place] [address] Care Team Providers Care Fire Prevention Engineer Name Role Phone Ming Evans MD Primary Care Provider [phone] Encounter Details Date Type Department Care Team (Late st Contact Info) Description 03/02/2023 Lab Requisition [facility] Pathology & Laboratory Medicine - [address] [address] Outr Resulting Lab, Provider Social History Tobacco [...] Info) Description 09/07/2024 15:40 EST Procedure visit [facility] ENT [address] [place] [address] Hunter Farr MD 130 [facility] [address] [place] [address] documented as of this encounter Procedures Procedure Name Priority Date/Time Associated Diagnosis Comments LITHIUM Routine 03/02/2023 11:38 EDT documented in this encounter Results * LITHIUM (03/02/2023 11:38 EDT) [place] 0.3 See Note mmol/L 03/02/2023 22:01 EDT [facility] Comment: 18 years and older: Therapeutic range: 0.6 - 1.2 mEq/L Potentially toxic: >1.5 mEq/L Therapeutic range not established for individuals <18 years old. Blood VENOUS BLOOD / Unknown 03/02/2023 11:38 EDT 03/02/2023 21:30 EDT us Provider Outr Resulting Lab CHEMISTRY & BLOOD GA S ORDERABLES Final Result Performing Organization Address City/State/[facility] Co de Phone Number [facility] [address] [place] [address] documented in this encounter Visit Diagnoses Not on filedocumented in this encounter Care Teams Fire Prevention Engineer Relationship Specialty Start Date End Date Ming Evans MD [address] [place] [phone] PCP - General Addiction Medicine 03/31/23 documented as of this encounter
--- OUTSIDE RECORDS SUMMARY | 2024-08-23 20:31 | XMS_ITS | Encounter Summary ---
Author Organization [facility] Address [address] [place] [address] Care Team Providers Care Oil Lease Operator Name Role Phone Ming Evans MD Primary Care Provider [phone] Encounter Details Date Type Department Care Team (Late st Contact Info) Description 07/07/2024 Lab Requisition [facility] Pathology & Laboratory Medicine - [address] [address] Outr Resulting Lab, Provider Social History Tobacco [...] of Assessment Author No 04/14/2023 15:46 EDT Mihceline Woodward RN documented as of this encounter Plan of Treatment Upcoming Encounters Date Type Department Care Team (Late st Contact Info) Description 09/07/2024 15:40 EST Procedure visit [facility] ENT [address] [place] [address] Hunter Farr MD 130 [facility] [address] [place] [address] documented as of this encounter Procedures Procedure Name Priority Date/Time Associated Diagnosis Comments SPEP WITH IMMUNOTYPING PERFORMABLE Today 07/07/2024 10:44 EDT LYME AB Routine 07/07/2024 10:44 EDT SPEP WITH IMMUNOTYPING Routine 07/07/2024 10:44 EDT PROTEIN, TOTAL Today 07/07/2024 10:44 EDT documented in this encounter Results * (ABNORMAL) SPEP WITH IMMUNOTYPING PERFORMABLE (07/07/2024 10:44 EDT) Albumin % 57.6 55.8 - 66.1 % 07/08/2024 15:00 [facility] Albumin g/dL 4.3 3.6 - 5.2 g/dL 07/08/2024 15:00 [facility] Alpha-1 % 3.9 2.9 - 4.9 % 07/08/2024 15:00 [facility] Alpha-1 g/dL 0.30 0.15 - 0.40 g/dL 07/08/2024 15:00 [facility] Alpha-2 % 12.0(H) 7.1 - 11.8 % 07/08/2024 15:00 [facility] Alpha-2 g/dL 0.90 0.50 - 1.00 g/dL 07/08/2024 15:00 [facility] Beta % 14.5(H) 8.4 - 13.1 % 07/08/2024 15:00 [facility] Beta g/dL 1.10 0.60 - 1.20 g/dL 07/08/2024 15:00 [facility] Gamma % 12.0 11.1 - 18.8 % 07/08/2024 15:00 [facility] Gamma g/dL 0.90 0.60 - 1.60 g/dL 07/08/2024 15:00 [facility] SPEP Comment No apparent monoclonal protein seen on serum electrophoresis 07/08/2024 15:00 [facility] Comment:See scanned/suppleme ntary report. Immunotyping , Serum Current Interpretation: Negative for monoclonal immunoglobulins. Reviewed by: Lm Tariq MD PhD 07/08/2024 14:04. 07/08/2024 15:00 EDT [facility] Total Protein 7.4 6.3 - 8.2 g/dL 07/08/2024 15:00 EDT [facility] Blood VENOUS BLOOD / Unknown 07/07/2024 10:44 EDT 07/07/2024 21:23 EDT us Provider Outr Resulting Lab CHEMISTRY & BLOOD GA S ORDERABLES Final Result Performing Organization Address [facility]/ZIP Co de Phone Number [facility] [address] [place] [phone] * PROTEIN, TOTAL (07/07/2024 10:44 EDT) Blood VENOUS BLOOD / Unknown 07/07/2024 10:44 EDT 07/07/2024 21:23 EDT us Provider Outr Resulting Lab CHEMISTRY & BLOOD GA S ORDERABLES Final Result Performing Organization Address [facility]/ZIP Co de Phone Number [facility] [address] [place] [phone] * LYME AB (07/07/2024 10:44 EDT) [place] Ab Negative Negative 07/08/2024 10:56 EDT [facility] Blood VENOUS BLOOD / Unknown 07/07/2024 10:44 EDT 07/07/2024 21:23 EDT us Provider Outr Resulting Lab IMMUNOLOGY AND SEROL OGY ORDERABLES Final Result Performing Organization Address [facility] Co de Phone Number [facility] [address] [place] [address] documented in this encounter Visit Diagnoses Not on filedocumented in this encounter Care Teams Oil Lease Operator Relationship Specialty Start Date End Date Ming Evans MD [address] [place] [phone] PCP - General Addiction Medicine 03/31/23 documented as of this encounter
--- OUTSIDE RECORDS SUMMARY | 2024-08-23 20:31 | XMS_ITS | Encounter Summary ---
Author Organization [facility] Address [address] [place] [address] Care Team Providers Care Depot Agent Name Role Phone Ming Evans MD Primary Care Provider [phone] Encounter Details Date Type Department Care Team (Latest Contact Info) Description 04/14/2023 Travel Social History Tobacco Use Types Packs/Day [...] 15:46 EDT documented as of this encounter Functional Status * Are you deaf or do you have serious difficulty hearing? Answer Date of Assessment Author No 04/14/2023 15:46 EDT Micheline Woodward RN documented as of this encounter Plan of Treatment Upcoming Encounters Date Type Department Care Team (Late st Contact Info) Description 09/07/2024 15:40 EST Procedure visit [facility] [address] [place] [address] Hunter Farr MD [address] [facility] [address] [place] [address] documented as of this encounter Visit Diagnoses Not on filedocumented in this encounter Care Teams Depot Agent Relationship Specialty Start Date End Date Ming Evans MD [address] [place] [id number] PCP - General Addiction Medicine 03/31/23 documented as of this encounter
--- OUTSIDE RECORDS SUMMARY | 2024-08-23 20:31 | XMS_ITS | Encounter Summary ---
Author Organization [facility] Address [address] [place] [address] Care Team Providers Care Juvenile Counselor Name Role Phone Ming Evans MD Primary Care Provider [phone] Encounter Details Date Type Department Care Team (Late st Contact Info) Description 10/01/2020 Lab Requisition [facility] Pathology & Laboratory Medicine - [address] [id number] Outr Resulting Lab, Provider Social History Tobacco [...] Info) Description 09/07/2024 15:40 EST Procedure visit [facility] [address] [place] [address] Hunter Farr MD [address] [facility] [address] [place] [address] documented as of this encounter Procedures Procedure Name Priority Date/Time Associated Diagnosis Comments ZZCOVID-19 TEST [facility] PCR Today 10/01/2020 15:59 EST COVID-19 TESTING Routine 10/01/2020 15:5 9 EST documented in this encounter Results * COVID-19 TEST [facility] PCR (10/01/2020 15:59 EST) Swab ENTIRE NASOPHARYNX / Unknown 10/01/2020 15:59 EST 10/01/2020 21:58 EST us Provider Outr Resulting Lab MICROBIOLOGY - GENER AL ORDERABLES Final Result Performing Organization Address City/[facility] Co de Phone Number [facility] [address] [place] [address] * (ABNORMAL) COVID-19 TESTING (10/01/2020 15:59 EST) COVID-19 rt-PCR Result Positive(AA ) Negative 10/02/2020 2:42 EST [facility] Comment: This test has not been FDA cleared or approved. This test has been authorized by FDA under an EUA for use by authorized laboratories. This test has been authorized only for detection of nucleic acid from 2019-nCoV, not for any other viruses or pathogens. This test is only authorized for the duration of the declaration that circumstances exist justifying the authorization of emergency use of in vitro diagnostic tests for detection and/or diagnosis of 2019-nCoV under section 564(b)(1) of Act, 21 U.S.C ?? 360bbb-3(b) (1), unless the authorization is terminated or revoked sooner. Positive results are indicative of active infection with 2019-nCoV but do not rule out bacterial infection or co-infection with other viruses. Performed on the ZigaViteher Fusion instrument Performing Lab [place] [facility] 10/02/2020 2:42 EST [facility] Swab 10/01/2020 15:5 9 EST 10/01/2020 21:58 EST us Provider Outr Resulting Lab MICROBIOLOGY - GENER AL ORDERABLES Final Result Performing Organization Address City/[facility]/ZIP Co de Phone Number [facility] [address] [place] [address] documented in this encounter Visit Diagnoses Not on filedocumented in this encounter Additional Health Concerns Infection Onset Date Last Indicated Resolved Time COVID-19 10/01/2020 10/01/2020 10/31/2020 22:1 5 EST documented as of this encounter Care Teams Juvenile Counselor Relationship Specialty Start Date End Date Ming Evans MD [address] [place] [address] PCP - General Addiction Medicine 03/31/23 documented as of this encounter
--- NOTE | 2024-08-23 20:49 | DI.VRAD_ITS ---
PROCEDURE INFORMATION: Exam: XR Chest Exam date and time: 08/23/2024 8:04 PM Age: 53 years old Clinical indication: Patient HX: Cough, asthma, eval pna TECHNIQUE: Imaging protocol: Radiologic exam of the chest. Views: 2 views. COMPARISON: CR XR CHEST 2V PA LATERAL 07/09/2024 8:50 PM FINDINGS: Lungs: Unremarkable. No consolidation. Pleural spaces: Unremarkable. No pleural effusion. No pneumothorax. Heart/Mediastinum: Heart is enlarged. Bones/joints: Unremarkable. IMPRESSION: Mild cardiomegaly. Dictated and Authenticated by: Jorgito Clemons MD. Ordering:JOSE Madrigal MD
== END 2024-08-23 21:26 | disposition home or self-care (01) ==
PROVIDERS: Emergency Provider Emergency Medicine
DX: J45.901 Unspecified asthma with (acute) exacerbation (principal); E11.9 Type 2 diabetes mellitus without complications; Q21.12 Patent foramen ovale; Z86.73 Personal history of transient ischemic attack (TIA), and cerebral infarction without residual deficits; Z79.01 Long term (current) use of anticoagulants; Z79.82 Long term (current) use of aspirin; Z79.84 Long term (current) use of oral hypoglycemic drugs; Z79.85 Long-term (current) use of injectable non-insulin antidiabetic drugs
CPT/HCPCS: 80053; 87637; 93005; 94640; 99285; 71046; 83735; 84484; 85025; 93010; 99284; J7512; J7620

== ENCOUNTER 2024-12-25 13:56 | Observation (INO) | payer MEDICARE, SELFPAY ==
[2024-12-25] VITALS (44 sets, daily range): BP systolic 115–141; BP diastolic 58–89; PULSE 68–92; RESP 13–29; TEMP 36.4–36.8; O2SAT 88–99
--- NOTE | 2024-12-25 14:00 | DI.CT_ITS ---
Exam(s) CT BRAIN NECK CTA EXAM: CT BRAIN NECK CTA CLINICAL HISTORY: speech difficulties. TECHNIQUE: Imaging Protocol: Axial CT angiography was performed with multi-slice acquisition and mu lti-planar and/or 3D reconstructions. CONTRAST MATERIAL: Intravenous: Omnipaque 350 Contrast volume:structured data in ml COMPARISON: CT CT HEAD - STROKE PROTOCOL from 07/11/2024 MR MR ANGIO NECK WO from 07/11/2024 MR MR BRAIN WO from 07/11/2024 FINDINGS: CTA Neck W: Aortic arch anatomy: The aortic arch anatomy is conventional and there is no significant stenosis at the origin of the great vessels off of the aortic arch. No intimal flap evident. Anterior circulation: Both common carotid arteries ascend with normal luminal diameters. The course of the common carotid arteries in the neck is again noted to be medial-retropharyngeal. At the level the carotid bulbs and proximal internal carotid arteries there is no significant plaque and no plaque without hemodynamically significant stenosis evident. The bilateral internal carotid arteries are patent in the upper neck and skull base-carotid canals. Posterior circulation: Both vertebral arteries originate in conventional fashion off of the subclavian arteries and there is no obvious stenosis at the origin of the vertebral arteries. Both vertebral arteries exhibit normal luminal diameters within the foramen transversarium. The right vertebral artery is again noted to be dominant. No evidence of vertebral artery stenosis n or dissection. Both vertebral arteries contribute to the formation of the basilar artery at the skull base. CTA Brain W: Anterior circulation: Both internal carotid arteries are patent in the skull base-carotid canals as well as within the cave rnous sinuses. The supraclinoid aspects of the ICAs are patent. Both A1 segments are patent as are the anterior cer ebral arteries and there is no evidence of aneurysm at the level of the anterior communicating artery . Both middle cerebral arteries are patent with no evidence of significant stenosis nor intraluminal th rombus. There also no aneurysms of these vessels. Posterior circulation: The basilar artery ascends in the midline. Distally it gives off patent bilateral superior cerebella r arteries. Above this level the basilar artery terminates as patent bilateral posterior cerebral arteries. There is a posterior communicating artery on the right side of the wzwjzy-pz-Uibkij, as was also evid ent on prior MRA study of 07/11/2024. This explains the right P1 segment being thinner than the left P1 segment. Flow in the distal right posterior cerebral artery is less than on the left side but si milar to previous MRA of 07/11/2024. There is no evidence of aneurysm at the tip of the basilar artery nor elsewhere in the cqywzx-hx-Odgr is. CT BRAIN: There is no evidence of intracranial hemorrhage, new mass effect, or shift of midline structures. Th ere are no extra-axial fluid collections. Ventricles are not enlarged or shifted. There are no ring enhancing lesions in the brain and no abnormal meningeal enhancement. 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 IMPRESSION: 1. Patent carotid arteries in the neck. No hemodynamically significant stenosis. The a course of collin th common carotid arteries again noted to be retropharyngeal/medial 2. Patent vertebral arteries. 3. In the intracranial compartment flow in the right posterior cerebral artery quadrigeminal segment is decreased when compared to the left side although this does appear similar to MRA study of 2023. 4. 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 Discussed by phone with ER physician 12/25/24 at 3:20 p.m. RADIATION DOSE DELIVERED: 2,441.3mGy.cm Total DLP DATA REPOSITORY: All CT scans at this facility are submitted to the National Radiology Data Registry (NRDR) Dose Index Registry (DIR) with the [employer] (ACR). RADIATION OPTIMIZATION: All CT scans at this facility use at least one of these dose optimization te chniques: automated exposure control; mA and/or kV adjustment per patient size (includes targeted exa ms where dose is matched to clinical indication); or iterative reconstruction.
--- NOTE | 2024-12-25 14:00 | RT.EKG_ITS ---
APPROVED REPORT Exam: Resting ECG Reason for Exam: ?cva Patient Location: E HR:74 bpm ECG Measurements Heart Rate 74 AXIS NJ 178 P 49 QRSd 99 QRS 22 QT 434 T 21 QTc 482 Conclusion Sinus rhythm...normal P axis, V-rate 60- 99 Low voltage, precordial leads...precordial leads <1.0mV Nonspecific T abnormalities, anterior leads...T <-0.10mV, V2-V4
--- NOTE | 2024-12-25 14:06 | ED.GENADUL_ITS ---
Discharge Plan Disposition Patient Disposition: Admit to [facility] Condition: Stable Discharge Details Chief Complaint: CVA/TIA Clinical Impression: Brain TIA Primary Care Provider: Unknown,Unknown ED Provider: Jurgen Sánchez Home Meds and New Rx's Prescriptions: No Action Ozempic 2 mg/dose (8 mg/3 mL) pen injector 2 mg subcut QWEEK levothyroxine [Synthroid] 50 mcg tablet 50 mcg PO DAILY aspirin 81 mg capsule 81 mg PO DAILY ziprasidone HCl [Geodon] 80 mg capsule 80 mg PO DAILY Rx Instructions: give with food (meal/snack) trazodone 100 mg tablet 200 mg PO DAILY duloxetine [Cymbalta] 60 mg capsule,delayed release(DR/EC) 60 mg PO DAILY lithium carbonate 300 mg tablet 300 mg PO DAILY magnesium oxide 400 mg magnesium capsule 400 mg PO DAILY rldqbzsvmemt-rjcilomw-sqkpdp Tablet 1 tab PO DAILY fluticasone propion-salmeterol [Advair Diskus] 250-50 mcg/dose blister with device 1 inh inhalation BID esomeprazole magnesium [Nexium] 20 mg capsule,delayed release(DR/EC) 20 mg PO DAILY celecoxib [Celebrex] 200 mg capsule 200 mg PO DAILY clopidogrel [Plavix] 75 mg tablet 75 mg PO DAILY metformin 1,000 mg tablet 1,000 mg PO BID atorvastatin [Lipitor] 10 mg tablet 10 mg PO DAILY acetaminophen [Tylenol Extra Strength] 500 mg tablet 1,000 mg PO DAILY rosuvastatin 40 mg tablet 40 mg PO DAILY Patient Comments: TAKE 1 TABLET BY MOUTH ONCE DAILY hydrocodone-acetaminophen 5-325 mg tablet PO PRN Patient Comments: TAKE 1 TABLET BY MOUTH TWICE DAILY NEEDED FOR PAIN HPI General Mode of arrival: ambulatory . Date/Time Provider Initiated Documentation: 12/25/24 13:56 . Limitations to Documentation: no limitations . Information obtained by: patient . History of Present Illness 54 year old F presents to the emergency department with the chief complaint of speech issues, described as moderate, Patient started experiencing this hour(s) (2.5) and it has been intermittent. No relieving factors improve symptom(s), No exacerbating factors reported . Patient notes no other symptoms.. Patient did receive the following treatments prior to arrival, none Related Data Home Medications ?Medication ?Instructions ?Recorded ?Confirmed acetaminophen 500 mg tablet 1,000 mg PO DAILY 02/15/24 12/25/24 (Tylenol Extra Strength) aspirin 81 mg capsule 81 mg PO DAILY 02/15/24 12/25/24 atorvastatin 10 mg tablet (Lipitor) 10 mg PO DAILY 02/15/24 12/25/24 celecoxib 200 mg capsule (Celebrex) 200 mg PO DAILY 02/15/24 12/25/24 clopidogrel 75 mg tablet (Plavix) 75 mg PO DAILY 02/15/24 12/25/24 duloxetine 60 mg capsule,delayed 60 mg PO DAILY 02/15/24 12/25/24 release (Cymbalta) esomeprazole magnesium 20 mg 20 mg PO DAILY 02/15/24 12/25/24 capsule,delayed release (Nexium) fluticasone 250 mcg-salmeterol 50 1 inh inhalation BID 02/15/24 12/25/24 mcg/dose blistr powdr for inhalation (Advair Diskus) levothyroxine 50 mcg tablet 50 mcg PO DAILY 02/15/24 12/25/24 (Synthroid) lithium carbonate 300 mg tablet 300 mg PO DAILY 02/15/24 12/25/24 magnesium oxide 400 mg PO DAILY 02/15/24 12/25/24 metformin 1,000 mg tablet 1,000 mg PO BID 02/15/24 12/25/24 kkszeskbnhfo-vjtetxpz-nrscpg tablet 1 tab PO DAILY 02/15/24 12/25/24 semaglutide 2 mg/dose (8 mg/3 mL) 2 mg subcut QWEEK 02/15/24 12/25/24 subcutaneous pen injector (Ozempic) trazodone 100 mg tablet 200 mg PO DAILY 02/15/24 12/25/24 ziprasidone HCl 80 mg capsule 80 mg PO DAILY 02/15/24 12/25/24 (Geodon) hydrocodone 5 mg-acetaminophen 325 tab PO PRN 12/25/24 mg tablet rosuvastatin 40 mg tablet 40 mg PO DAILY 12/25/24 12/25/24 Allergies Allergy/AdvReac Type Severity Reaction Status Date / Time Influenza Virus Vaccines Allergy Intermediate Hives Unverified 12/25/24 14:39 Penicillins Allergy Intermediate Skin Rash Unverified 12/25/24 14:39 Sulfa (Sulfonamide Allergy Intermediate Skin Rash Unverified 12/25/24 14:39 Antibiotics) tramadol AdvReac Mild Other (See Unverified 12/25/24 14:39 Comment) NSAIDS (Non-Steroidal AdvReac no Verified 12/25/24 14:41 Anti-Inflamma reactions General Stated Complaint: CVA/TIA MAITE: 2 Review of Systems All systems reviewed & are unremarkable except as noted in HPI and below Constitutional Constitutional: Denies chills, Denies fever(s) and Denies weakness Eyes Eyes: Denies loss of vision Cardiovascular Cardiovascular: Denies chest pain and Denies dyspnea Respiratory Respiratory: Denies cough and Denies dyspnea Gastrointestinal Gastrointestinal: Denies abdominal pain, Denies nausea and Denies vomiting Neurologic Neurologic: Reports abnormal speech, Denies loss of vision and Denies weakness Exam Const General: no acute distress Orientation: alert HENMT Head: normal to inspection Ears: external ears normal General nose exam: external nose normal Mouth: moist mucous membranes Eyes General: appearance normal, both eyes and all related structures Neck Neck: normal visual inspection Resp Effort & Inspection: normal respiratory effort and able to speak in complete sentences Cardio Rate: regular rate Skin General skin exam: no rashes or lesions noted Neuro General: patient alert, patient oriented x3 and CN's II-XI intact bilaterally Cranial Nerves: PERRL, accommodation normal and EOM intact bilaterally Cognition: normal cognition Speech: abnormal speech Gait: normal gait Motor: muscle tone normal throughout Sensory Exam: no sensory deficits noted Extrem General: normal to inspection Psych Mental Status: mental status grossly normal Course Vital Signs Vital signs: Vital Signs Temperature 36.8 C 12/25/24 14:00 Pulse 92 H 12/25/24 14:00 Respiratory Rate 20 12/25/24 14:00 Blood Pressure 132/59 L 12/25/24 14:00 Pulse Oximetry 97 12/25/24 14:00 Temperature 36.8 C 12/25/24 14:00 Temperature Source Oral 12/25/24 14:00 Pulse 92 H 12/25/24 14:00 Respiratory Rate 20 12/25/24 14:00 Blood Pressure 132/59 L 12/25/24 14:00 Blood Pressure Position Sitting 12/25/24 14:00 Pulse Oximetry 97 12/25/24 14:00 Oxygen Delivery Method Room Air 12/25/24 14:00 Oxygen Flow Rate 0 12/25/24 14:00 Medical Decision Making 54-year-old female with a history of bipolar comes in with intermittent difficulties with her speech for the last 2 and half hours. Her family member that is with her says that her last known normal was around 11:30 AM but cannot say for certain that this was her last known normal. He says this was similar to her event in June, on review with looks like she had a CT and CTA on 10 July of last year and was discharged and then there was an over read with a potential abnormality in her vasculature so she was instructed to return to the ER that day and was still having issues with her speech and had a brain MRI which did not show any concerning findings or evidence of CVA and also negative MRA, neurology was consulted and recommended, lysis which was given with TNK and she was transferred to [facility]. She says since then she has not had any issues with her speech. She denies any fevers, chest pain, difficulty breathing. She has normal gait on arrival. She has mild drooping on the right side of her face with asymmetry of the right lip but she and her feeling member are not sure if that is new for her. She does have some mild word finding difficulty but is able to answer most questions appropriately, also has mild slurring of her words. She has no motor or sensation deficits. NIH on my exam is 3. Given she is potentially within the window for lytics we will proceed with labs and CT and CTA of her head and neck. Lab show magnesium of 1.4 so IV repletion was ordered. CT and CTA shows no acute findings, no significant changes from prior. teleneuro saw the pt and NIH is 0 on their exam, they recommend continuing her aspirin and Plavix and telemetry observation admission and MRI tomorrow. Discussed with hospitalist accepts for admission Differential Diagnosis Differential Diagnosis: tia, cva, electrolyte abnormality Medical Records Medical records reviewed: Yes I reviewed the patient's medical records. Lab Data Lab results reviewed: Yes I reviewed the patient's lab results. ECG Data Attestation: I personally reviewed and interpreted this ECG (s) as follows: Prior ECG tracings: available for review Interpretation: sinus rate of 74 no stemi Quality:SDOH Health Related Social Needs: No Data to Display PFSH All Active Problems (Updated 12/25/24 @ 16:04 by Jurgen Sánchez MD) Brain TIA (Acute) Social History Smoking/Tobacco Use Status: Never Smoking risk assessment performed?: Yes Alcohol Intake: never Drug use: Never Substance use type: does not use Housing: house Do you feel safe at home: Yes Do you feel safe in your relationship?: Yes
[2024-12-25] MEDS: Normal Saline - Diluent 50 ML VIAL IJ (14:09)
[2024-12-25] MEDS: Omnipaque 350 MG/ML 100 ML BTL 70 ML IJ (14:10)
[2024-12-25 14:22] LABS: Abs Immature Grans 0.03 10^3/uL (0.0-0.06); Absolute Basophil Count 0.03 10^3/uL (0.0-0.2); Absolute Eosinophil Count 0.16 10^3/uL (0.0-0.7); Absolute Lymphocyte Count 2.58 10^3/uL (1.2-3.4); Absolute Monocyte Count 0.55 10^3/uL (0.1-0.8); Absolute Neutrophil Count 5.31 10^3/uL (1.2-6.7); Basophils % 0.3 %; Eosinophils % 1.8 %; HCT 40.1 % (36.0-46.0); HGB 12.4 g/dL (11.2-15.7); Immature Grans % 0.3 %; Lymphocytes % 29.8 %; MCH 26.4 pg (27.0-33.0); MCHC 30.9 % (32.0-36.0); MCV 86 fL (80-95); MPV 10.8 fL (8.0-11.0); Monocytes % 6.4 %; Neutrophils % 61.4 %; Platelet Count 207 10^3/uL (130-400); RBC 4.69 10^6/uL (3.93-5.22); RDW-SD 43.3 fL; WBC 8.66 10^3/uL (4.4-10.8)
[2024-12-25 14:41] LABS: ALT 39 U/L (14-59); AST 39 U/L (15-37); Albumin 3.5 g/dL (3.4-5.0); Alkaline Phosphatase 79 U/L (46-116); Anion Gap 8.7 mmol/L (3-11); BUN 14 mg/dL (7-18); Bilirubin, Total 0.7 mg/dL (0.2-1.0); CO2 30.3 mmol/L (21.0-32.0); CREATININE 1.2 mg/dL (0.55-1.02); Calcium 9.9 mg/dL (8.5-10.1); Chloride 102 mmol/L (98-107); Estimated GFR 54.13 (mL/min/1.73m2); Glucose 227 mg/dL (74-106); PTT Activated 24.8 sec (20.6-30.2); Potassium 4.1 mmol/L (3.5-5.1); Prothrombin Time 10.3 sec (9.1-11.1); Sodium 141 mmol/L (136-145); Total Protein 7.2 g/dL (6.4-8.2)
[2024-12-25 14:46] LABS: Magnesium 1.4 mg/dL (1.8-2.4); TSH (W/Ref FT4) 2.16 uIU/mL (0.36-3.74); Troponin I 4 ng/L (<or=51)
[2024-12-25 14:52] LABS: Lithium < 0.2 mmol/L (0.6-1.2)
[2024-12-25] MEDS: MAGNESIUM SULFATE 2 GM/50 ML BAG IV_INF (15:46)
--- NOTE | 2024-12-25 16:02 | HPE_ITS ---
Date of service: 12/25/24 Time of Service: 16:37 Assessment and Plan Assessment and plan (1) Stroke: Status: Chronic Assessment and plan: CT, CTA head and neck negative for acute findings Echo with bubble ( know PFO reported by patient and too small to be repaired ) MRI head w/o On plavix , ASA and high intensity statin outpatient - will continue in patient Stroke with TNK in 06/2024- then [facility] [place] stay Telemetry (2) Brain TIA: Status: Acute Assessment and plan: Recurrent and as above (3) Bipolar 1 disorder: Status: Acute Assessment and plan: Seen in [place] by psych- records requested [place] < 0.2 now and in 06/2024 Continue opt therapy with lithium and zyprazidone (4) PFO (patent foramen ovale): Status: Acute Assessment and plan: Reported by patient Cardiology service in [facility] --records requested (5) MARISA (acute kidney injury): Status: Acute Assessment and plan: Cr 1.2 from baseline 0.8-0.9 Contrast in ED Holding metformin IVF BMP in AM (6) Diabetes: Status: Chronic Assessment and plan: Gluc AC and HS with SSI coverage while inpatient Resume outpatient therapy at d/c On lovenox for DVT prophylaxis -- dose might need to be adjusted to BMI Discussed with Dr. Bowman History of Present Illness History of Present Illness Chief Complaint: Speech difficulty Narrative: This 54-year-old female patient with a past medical history significant for hypothyroidism, diabetes,bipolar disorder, chronic back pain, TIA and recent visit in 06/2024 with similar presentation, TNK administration and admission to [facility] presented to the ED for evaluation of of speech difficulties. Stating symptoms starting around 11:30 with been acutely aware of speaking jiberish and not making sense with resolution and later on experiencing 2-3 transient episodes of difficulty forming word and slow speaking, no motor dysfunction. 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 CBC and chemistry were unremarkable except for Cr 1.2 from baseline 0.8- 0.9, lithium < 0.2 as prior, mag 1.4 supplementation initiated. [facility] teleneurology consult recommendation for stroke work-up with MRI in AM; the patient was admitted for observation to the hospitalist service with telemetry on the medical surgical floor. Denies change in vision, dizziness, tingling/ numbness, chest pain, shortness of breath, nausea, vomiting, diarrhea or dysuria. Reports intermittent headache 5/10, and back pain while in the ED and requesting hydrocodone-APAP. Confirmed full code status, mentioned seizure work-up completed w/o being diagnosed, history of PFO, no UT or PE reported. Mentioned high intensity statin changed to Crestor 40 mg daily by cardiology in [place]- records requested. Normal speech at the beginning of interaction then sudden staring and stuttering for 1-2 minutes then resumption of speech with hesitancy and improvement in flow as conversation continued. Review of Systems All systems reviewed & are unremarkable except as noted in HPI and below PFSH All Active Problems (Updated 12/25/24 @ 17:42 by Tyesha Pinto APRN) Diabetes (Chronic) MARISA (acute kidney injury) (Acute) PFO (patent foramen ovale) (Acute) Bipolar 1 disorder (Acute) Stroke (Chronic) Brain TIA (Acute) Social History Smoking/Tobacco Use Status: Never Smoking risk assessment performed?: Yes Alcohol Intake: never Drug use: Never Substance use type: does not use Housing: house Do you feel safe at home: Yes Do you feel safe in your relationship?: Yes Meds Allergies and Home Medications Allergies Allergy/AdvReac Type Severity Reaction Status Date / Time Influenza Virus Vaccines Allergy Intermediate Hives Unverified 12/25/24 17:08 Penicillins Allergy Intermediate Skin Rash Unverified 12/25/24 17:08 Sulfa (Sulfonamide Allergy Intermediate Skin Rash Unverified 12/25/24 17:08 Antibiotics) tramadol AdvReac Mild Other (See Unverified 12/25/24 17:08 Comment) NSAIDS (Non-Steroidal AdvReac no Verified 12/25/24 17:08 Anti-Inflamma reactions Home Medications ?Medication ?Instructions ?Recorded ?Confirmed ?Type acetaminophen 500 mg tablet 1,000 mg PO DAILY 02/15/24 12/25/24 History (Tylenol Extra Strength) aspirin 81 mg capsule 81 mg PO DAILY 02/15/24 12/25/24 History atorvastatin 10 mg tablet (Lipitor) 10 mg PO DAILY 02/15/24 12/25/24 History celecoxib 200 mg capsule (Celebrex) 200 mg PO DAILY 02/15/24 12/25/24 History clopidogrel 75 mg tablet (Plavix) 75 mg PO DAILY 02/15/24 12/25/24 History duloxetine 60 mg capsule,delayed 60 mg PO DAILY 02/15/24 12/25/24 History release (Cymbalta) esomeprazole magnesium 20 mg 20 mg PO DAILY 02/15/24 12/25/24 History capsule,delayed release (Nexium) fluticasone 250 mcg-salmeterol 50 1 inh inhalation BID 02/15/24 12/25/24 History mcg/dose blistr powdr for inhalation (Advair Diskus) levothyroxine 50 mcg tablet 50 mcg PO DAILY 02/15/24 12/25/24 History (Synthroid) lithium carbonate 300 mg tablet 300 mg PO DAILY 02/15/24 12/25/24 History magnesium oxide 400 mg PO DAILY 02/15/24 12/25/24 History metformin 1,000 mg tablet 1,000 mg PO BID 02/15/24 12/25/24 History yqnqmfzqdelb-cgjbaejo-imrsfb tablet 1 tab PO DAILY 02/15/24 12/25/24 History semaglutide 2 mg/dose (8 mg/3 mL) 2 mg subcut QWEEK 02/15/24 12/25/24 History subcutaneous pen injector (Ozempic) trazodone 100 mg tablet 200 mg PO DAILY 02/15/24 12/25/24 History ziprasidone HCl 80 mg capsule 80 mg PO DAILY 02/15/24 12/25/24 History (Geodon) hydrocodone 5 mg-acetaminophen 325 tab PO PRN 12/25/24 History mg tablet rosuvastatin 40 mg tablet 40 mg PO DAILY 12/25/24 12/25/24 History Exam Narrative Exam Narrative: Constitutional The patient is w/o acute distress, NIHSS 1 for Dysarthria ( intermittent), intermittent back pain- ROSA 02/04 HENMT: No facial droop, Facial structures with normal appearance Eyes: Well aligned, intact ROM Neck: No JVD, no meningeal signs Neuro:alert and oriented to self, person, place, time ( month and year) and situation. No obvious neurological focal deficit Resp: Normal respiratory pattern, ,unlabored breathing, clear lung bilaterally Cardio: regular rhythm, S1, S2, no murmur, capillary refill<3 sec., bilateral radial and dorsalis pedis pulses are positive, palpable GI: Abdomen is not distended, soft and non tender, bowel sounds are present : Negative Costovertebral angle tenderness, no bladder distension Back/spine/Pelvis: No back tenderness, normal alignment Integumentary: multiple sites on abdomen and left breast of healing skin lesions d/t digging Extremities: strength 5/5 to bilateral lower and upper extremities Psych: RASS 0-1, congruent mood and normal affect. Results Labs 12/25/24 14:12 12/25/24 14:12 Labs: Laboratory Results - last 24 hr 12/25/24 14:12 WBC 8.66 RBC 4.69 Hgb 12.4 Hct 40.1 MCV 86 MCH 26.4 L MCHC 30.9 L RDW 14.0 Plt Count 207 MPV 10.8 Immature Gran % 0.3 Neutrophils % 61.4 Lymphocytes % 29.8 Monocytes % 6.4 Eosinophils % 1.8 Basophils % 0.3 Nucleated RBC % 0.0 Absolute Neutrophils 5.31 Absolute Lymphocytes 2.58 Absolute Monocytes 0.55 Absolute Eosinophils 0.16 Absolute Basophils 0.03 PT 10.3 INR 1.0 APTT 24.8 Sodium 141 Potassium 4.1 Chloride 102 Carbon Dioxide 30.3 Anion Gap 8.7 BUN 14 Creatinine 1.2 H Est GFR (CKD-EPI 2020) 54.13 Glucose 227 H Calcium 9.9 Magnesium 1.4 L Total Bilirubin 0.7 AST 39 H ALT 39 Alkaline Phosphatase 79 Troponin I 4 Total Protein 7.2 Albumin 3.5 TSH 2.16 [place] < 0.2 L Last Vital Signs Temp 36.8 C 12/25/24 14:00 Pulse 92 H 12/25/24 14:00 Resp 24 12/25/24 14:47 BP 132/59 L 12/25/24 14:00 Pulse Ox 97 12/25/24 14:00 Time Spent Time spent with Patient: >75 minutes Time was spent: preparing to see the patient(eg.review tests), obtaining and/or reviewing separately otained hiistory, ordering medications,tests, procedures, referring, communicating with other health manager urgent care, indepentently interpreting results, counseling the patient and care coordination
[2024-12-25 16:03] LABS: Bilirubin Negative (Negative); Blood Negative (Negative); Clarity Clear (Clear); Glucose Negative (Negative); Ketones Negative (Negative); Leukocyte Esterase Negative (Negative); Nitrite Negative (Negative); Urobilinogen 0.2 mg/dL (Up to 0.2); pH 6.5 (5-8)
[2024-12-25 16:04] LABS: Troponin I 4 ng/L (<or=51)
[2024-12-25] MEDS: HYDROcodone 5/Acetaminophen 325 TAB PO (18:03)
[2024-12-25] MEDS: Enoxaparin 40 MG/0.4 ML SYR SC (18:03)
[2024-12-25] MEDS: Lactated Ringers 1,000 ML 125 ML IV (18:05)
[2024-12-25 18:07] LABS: Hemoglobin A1C 7.2 % (<5.7)
--- NOTE | 2024-12-25 18:27 | W.PC.ACHO ---
Registration Status: Primary Language: Preferred Language: ED Information & Data Chief Complaint CVA/TIA 12/25/24 14:06 Triage Note Difficulty communicating/ 12/25/24 14:00 speaking starting approx 1130 today. reports Hx of TIAs Most Recent Vital Signs Temperature 36.8 C 12/25/24 17:47 Temperature Source Oral 12/25/24 14:00 Pulse 79 12/25/24 17:47 Pulse 74 12/25/24 16:01 Respiratory Rate 20 12/25/24 17:47 Respiratory Effort Normal, Non-Labored 12/25/24 14:47 Respiratory Depth Normal 12/25/24 14:47 Respiratory Pattern Normal 12/25/24 14:47 Blood Pressure 115/82 12/25/24 17:47 Blood Pressure Mean 88 12/25/24 16:01 Blood Pressure Position Sitting 12/25/24 14:00 Pulse Oximetry 98 12/25/24 17:47 Oxygen Delivery Method Room Air 12/25/24 17:47 Oxygen Flow Rate 0 12/25/24 17:47 Pain Level 5 12/25/24 18:03 Allergies Influenza Virus Vaccines Allergy (Intermediate, Unverified 12/25/24 17:08) Hives Penicillins Allergy (Intermediate, Unverified 12/25/24 17:08) Skin Rash Sulfa (Sulfonamide Antibiotics) Allergy (Intermediate, Unverified 12/25/24 17:08) Skin Rash tramadol Adverse Reaction (Mild, Unverified 12/25/24 17:08) Other (See Comment) sees floaties and doesn't work NSAIDS (Non-Steroidal Anti-Inflamma Adverse Reaction (Verified 12/25/24 17:08) no reactions patient state her personal computer specialist says their contributing to her strokes Active Medications Generic Name Dose Route Start Last Admin Trade Name Freq PRN Reason Stop Dose Admin Enoxaparin Sodium 40 mg 12/25/24 17:50 12/25/24 18:03 Enoxaparin 40 Mg/0.4 Ml Syr SC 40 mg DAILY KAREN Administration Ringer's Solution 1,000 mls @ 125 mls/hr 12/25/24 17:46 12/25/24 18:05 IV 125 mls/hr INFUSION KAREN Administration IV IV Catheter Type [Right Saline Lock Antecubital] IV Catheter Gauge [Right 18 Antecubital] Diet Orders Category Date Time Status Diabetes Consistent CHO/Heart Healthy [DIET] Nutrition 12/25/24 Dinner Active Diagnostics 12/25/24 12/25/24 12/25/24 Range/Units 18:02 15:58 15:32 WBC (4.4-10.8) 10^3/uL RBC (3.93-5.22) 10^6/uL Hgb (11.2-15.7) g/dL Hct (36.0-46.0) % MCV (80-95) fL MCH (27.0-33.0) pg MCHC (32.0-36.0) % RDW (11.7-14.6) % Plt Count (130-400) 10^3/uL MPV (8.0-11.0) fL Immature Gran % % Neutrophils % % Lymphocytes % % Monocytes % % Eosinophils % % Basophils % % Nucleated RBC % (0.0-0.3) % Absolute Neutrophils (1.2-6.7) 10^3/uL Absolute Lymphocytes (1.2-3.4) 10^3/uL Absolute Monocytes (0.1-0.8) 10^3/uL Absolute Eosinophils (0.0-0.7) 10^3/uL Absolute Basophils (0.0-0.2) 10^3/uL PT (9.1-11.1) sec INR (0.9-1.1) APTT (20.6-30.2) sec Sodium (136-145) mmol/L Potassium (3.5-5.1) mmol/L Chloride (98-107) mmol/L Carbon Dioxide (21.0-32.0) mmol/L Anion Gap (3-11) mmol/L BUN (7-18) mg/dL Creatinine (0.55-1.02) mg/dL Est GFR (CKD-EPI 2020) (mL/min/1.73m2) Glucose (74-106) mg/dL Hemoglobin A1c (<5.7) % Calcium (8.5-10.1) mg/dL Magnesium (1.8-2.4) mg/dL Total Bilirubin (0.2-1.0) mg/dL AST (15-37) U/L ALT (14-59) U/L Alkaline Phosphatase (46-116) U/L Troponin I 4 (<or=51) ng/L Total Protein (6.4-8.2) g/dL Albumin (3.4-5.0) g/dL Triglycerides Pending Total Cholesterol Pending LDL Cholesterol, Calc Pending HDL Cholesterol Pending TSH (0.36-3.74) uIU/mL Urine Color Yellow (Yellow) Urine Clarity Clear (Clear) Urine pH 6.5 (5-8) Ur Specific [place] 1.010 (1.005-1.025) Urine Protein Negative (Neg-Trace) mg/dL Urine Ketones Negative (Negative) mg/dL Urine Blood Negative (Negative) Urine Nitrite Negative (Negative) Urine Bilirubin Negative (Negative) Urine Urobilinogen 0.2 (Up to 0.2) mg/dL Ur Leukocyte Esterase Negative (Negative) Urine Glucose Negative (Negative) mg/dL [place] (0.6-1.2) mmol/L 12/25/24 Range/Units 14:12 WBC 8.66 (4.4-10.8) 10^3/uL RBC 4.69 (3.93-5.22) 10^6/uL Hgb 12.4 (11.2-15.7) g/dL Hct 40.1 (36.0-46.0) % MCV 86 (80-95) fL MCH 26.4 L (27.0-33.0) pg MCHC 30.9 L (32.0-36.0) % RDW 14.0 (11.7-14.6) % Plt Count 207 (130-400) 10^3/uL MPV 10.8 (8.0-11.0) fL Immature Gran % 0.3 % Neutrophils % 61.4 % Lymphocytes % 29.8 % Monocytes % 6.4 % Eosinophils % 1.8 % Basophils % 0.3 % Nucleated RBC % 0.0 (0.0-0.3) % Absolute Neutrophils 5.31 (1.2-6.7) 10^3/uL Absolute Lymphocytes 2.58 (1.2-3.4) 10^3/uL Absolute Monocytes 0.55 (0.1-0.8) 10^3/uL Absolute Eosinophils 0.16 (0.0-0.7) 10^3/uL Absolute Basophils 0.03 (0.0-0.2) 10^3/uL PT 10.3 (9.1-11.1) sec INR 1.0 (0.9-1.1) APTT 24.8 (20.6-30.2) sec Sodium 141 (136-145) mmol/L Potassium 4.1 (3.5-5.1) mmol/L Chloride 102 (98-107) mmol/L Carbon Dioxide 30.3 (21.0-32.0) mmol/L Anion Gap 8.7 (3-11) mmol/L BUN 14 (7-18) mg/dL Creatinine 1.2 H (0.55-1.02) mg/dL Est GFR (CKD-EPI 2020) 54.13 (mL/min/1.73m2) Glucose 227 H (74-106) mg/dL Hemoglobin A1c 7.2 H (<5.7) % Calcium 9.9 (8.5-10.1) mg/dL Magnesium 1.4 L (1.8-2.4) mg/dL Total Bilirubin 0.7 (0.2-1.0) mg/dL AST 39 H (15-37) U/L ALT 39 (14-59) U/L Alkaline Phosphatase 79 (46-116) U/L Troponin I 4 (<or=51) ng/L Total Protein 7.2 (6.4-8.2) g/dL Albumin 3.5 (3.4-5.0) g/dL Triglycerides Total Cholesterol LDL Cholesterol, Calc HDL Cholesterol TSH 2.16 (0.36-3.74) uIU/mL Urine Color (Yellow) Urine Clarity (Clear) Urine pH (5-8) Ur Specific [place] (1.005-1.025) Urine Protein (Neg-Trace) mg/dL Urine Ketones (Negative) mg/dL Urine Blood (Negative) Urine Nitrite (Negative) Urine Bilirubin (Negative) Urine Urobilinogen (Up to 0.2) mg/dL Ur Leukocyte Esterase (Negative) Urine Glucose (Negative) mg/dL [place] < 0.2 L (0.6-1.2) mmol/L [id number] Documentation Fingerstick Glucose Start: 12/25/24 14:02 Freq: Status: Complete Protocol: Activity Type Activity Date Activity User E-sign Co-sign Detail Recorded Client Recorded Date Recorded By Document 12/25/24 14:02 CLAUDIA ROACH(3) [id number] 12/25/24 14:02 JADAG MARLEY(4) Intake and Output - 24 Hour Total 12/25/24 13:56 thru 12/25/24 14:00 Weight 115.439 kg Falls Risk Assessment History of Falls No History 12/25/24 14:03 Contributing Factors No Factors 12/25/24 14:03 Ambulatory Aids Independent 12/25/24 14:03 Tubes/Lines None 12/25/24 14:03 Gait Evaluation No gait disturbance 12/25/24 14:03 Cognition No cognitive impairment 12/25/24 14:03 Fall Total Score 0 12/25/24 14:03 Level of Risk Standard/Low Risk 12/25/24 14:03 Problems (Last Reviewed 07/11/24 @ 16:52 by Kushal Morfin MD) Diabetes (Chronic) MARISA (acute kidney injury) (Acute) PFO (patent foramen ovale) (Acute) Bipolar 1 disorder (Acute) Stroke (Chronic) Brain TIA (Acute) v v v v v v v v v Sending and/or Receiving Nurses: Please use comment section below to note any information pertinent to the patient hand-off not included above. Information / Comments: Report received from:Report rec'd from ED TAVON Pedraza, TAVON at [phone]
[2024-12-25 18:28] LABS: Calculated LDL 16 mg/dL (<100); Cholesterol 121 mg/dL (<200); HDL Cholesterol 73 mg/dL (>or=50); Triglyceride 164 mg/dL (<150)
[2024-12-25] MEDS: Acetaminophen 500 MG TAB 1000 MG PO (20:15)
[2024-12-25] MEDS: Rosuvastatin 20 MG TAB 40 MG PO (20:15)
[2024-12-25] MEDS: Normal Saline Flush 10 ML SYR IVP (20:16)
[2024-12-25] MEDS: traZODone 50 MG TAB 200 MG PO (22:15)
[2024-12-25] MEDS: Ziprasidone 20 MG CAP 80 MG PO (22:16)
[2024-12-26] MEDS: Lactated Ringers 1,000 ML 125 ML IV (02:07)
[2024-12-26 02:57] VITALS: BP 120/69; PULSE 78; RESP 18; TEMP 36.4; O2SAT 93
[2024-12-26 07:53] VITALS: BP 135/69; PULSE 81; RESP 20; TEMP 36.8; O2SAT 94
[2024-12-26] MEDS: Budesonide/Formoterol 160/4.5 6 GM 60 PUFF INH IH (08:06)
--- NOTE | 2024-12-26 08:43 | PDOC.CMIN ---
Date of service: 12/26/24 Time of Service: 08:43 Care Management Initial Assmt Initial Assessment Reason for Hospitalization: Stroke, MARISA Functional Status/Living Situation Patient Presentation: Tushar was down having and MRI when CM attempted to meet with her. Pt discharged soon after imaging was resulted and reviewed. Information is per chart review. Town of Residence: [facility] Resides with: Child and Spouse (Carlos) Significant Other/Family: [facility] Instrumental Activities of Daily Living (ADLs): Independent Medications Medication Management: No Issues/Barriers identified Physical Functioning/Mobility Assistive Device: None Advance Directives Advance Directives: Do you have an Advance Directive: AD On File at [facility]: N 02/15/24 07:22 Date Asked 12/25/24 12/25/24 14:16 AD Date Reviewed COLST On File at [facility] No 08/23/24 19:30 COLST Date Scanned Code Status Resuscitation Status Full Code Portal Pt does not currently have a portal and education provided: Yes Insurance Coverage/Financial Issues Insurance: /[facility] - [id number] Care Team Visit Care Team Role Provider Type Alisha Bales NP NURSE PRACTITIONER Unknown Unknown Primary Care Provider STAFF PHYSICIAN Jurgen Sánchez MD Emergency Provider [facility] STAFF PHYSICIAN Patrick Bowman MD Admit Provider [facility] STAFF PHYSICIAN Attending Provider Discharge Potential Discharge Needs: PCP F/U Appt and Other ( Neurology Follow up) Anticipated Barriers to Discharge: None Identified Patient/Family Education Needs: Review discharge instructions, discuss Ask Me Three Transportation: Private vehicle Plan: Anticipate, Tushar will discharge home via private vehicle with family. Pt will follow up with community providers and her discharge plan of care as directed. No new services are anticipated at this time. CM will follow. Social Determinants of Health Screening Social Determinants of Health last assessed: 12/26/24 Will the Patient Participate in the Screening?: Yes Do you worry about having a steady place to live?: no Problems where you live: no known problems In the past 12 months, have you had to go without electric, gas, oil or water in your home?: no Have you or anyone in your house had to go without enough food to eat?: no Has lack of transportation kept you from medical appointments or from doing things needed for daily living?: no Has anyone in your life made you feel unsafe or unsupported?: no How hard is it for you to pay for the very basics like food, housing, medical care, and heating? Would you say it is:: Not hard at all Do you want help finding or keeping work or a job?: I do not need or want help If for any reason you need help with day-to-day activities such as bathing, preparing meals, shopping, managing finances, etc., do you get the help you need?: I don?t need any help How often do you feel lonely or isolated from those around you?: Never Do you speak a language other than [place] at home?: No Does the patient want assistance with any of the above?: No PFSH All Active Problems (Updated 12/26/24 @ 13:12 by Alisha Bales NP) Diabetes (Chronic) MARISA (acute kidney injury) (Acute) PFO (patent foramen ovale) (Acute) Bipolar 1 disorder (Chronic) Social History Smoking/Tobacco Use Status: Never Smoking risk assessment performed?: Yes Alcohol Intake: never Drug use: Never Substance use type: does not use Housing: apartment Do you feel safe at home: Yes Do you feel safe in your relationship?: Yes
[2024-12-26] MEDS: Clopidogrel 75 MG TAB PO (08:46)
[2024-12-26] MEDS: Magnesium Oxide 400 MG TAB PO (08:46)
[2024-12-26] MEDS: Multivitamin w/Minerals TAB 1 TAB PO (08:46)
[2024-12-26] MEDS: Levothyroxine 50 MCG TAB PO (08:46)
[2024-12-26] MEDS: DULoxetine 30 MG CAP 60 MG PO (08:46)
[2024-12-26] MEDS: Lithium Carbonate 150 MG CAP 300 MG PO (08:47)
[2024-12-26] MEDS: Esomeprazole 20 MG CAPCR PO (08:47)
[2024-12-26] MEDS: Aspirin 81 MG CHEW PO (08:47)
[2024-12-26] MEDS: Enoxaparin 40 MG/0.4 ML SYR SC (08:48)
[2024-12-26] MEDS: Insulin Aspart 300 UNITS/3 ML PEN SC ×2 (08:48→12:19)
--- NOTE | 2024-12-26 10:35 | W.PM.DS.N ---
Date of service: 12/26/24 Time of Service: 13:11 DS: Diagnosis Discharge Diagnosis (1) Stroke: Status: Ruled-out Asessment and Plan: acute stroke ruled out (2) Brain TIA: Status: Resolved (3) Bipolar 1 disorder: Status: Chronic (4) PFO (patent foramen ovale): Status: Acute (5) MARISA (acute kidney injury): Status: Acute (6) Diabetes: Status: Chronic Discharge Plan Disposition Patient Disposition: Home Condition: Stable Discharge Details Reason For Visit: Stroke, MARISA Admit Date/Time: 12/25/24 16:17 Admit Provider: Patrick Bowman Attending Provider: Patrick Bowman Primary Care Provider: Unknown,Unknown Hospital Course Hospital Course: This is a 54-year-old female patient complex past medical history including bipolar disorder hypothyroidism, diabetes, PFO, TIA who presented to the emergency department with difficulty forming words and slow speech. She had no motor dysfunction the rest of her workup was unremarkable. CTA of the head and neck with no change when compared to June 2024. She was admitted to hospitalist services for stroke rule out. she remained in sinus rhythm on telemetry with no dysrhythmias. Her symptoms resolved and at her baseline. An MRI was completed and shows no acute CVA. She is at her baseline with no complaints hemodynamically she has been stable she is eating and drinking bowels and bladder functioning she was advised to resume her usual medications as previously directed and to follow-up outpatient with her primary care provider return sooner for new or worsening symptoms discussed with DR Bowman Home Meds and New Rx's Prescriptions: Continued Ozempic 2 mg/dose (8 mg/3 mL) pen injector 2 mg subcut QWEEK levothyroxine [Synthroid] 50 mcg tablet 50 mcg PO DAILY aspirin 81 mg capsule 81 mg PO DAILY ziprasidone HCl [Geodon] 80 mg capsule 80 mg PO HS Rx Instructions: give with food (meal/snack) trazodone 100 mg tablet 200 mg PO HS duloxetine [Cymbalta] 60 mg capsule,delayed release(DR/EC) 60 mg PO DAILY lithium carbonate 300 mg tablet 300 mg PO DAILY magnesium oxide 400 mg magnesium capsule 400 mg PO DAILY [id number] Tablet 1 tab PO DAILY fluticasone propion-salmeterol [Advair Diskus] 250-50 mcg/dose blister with device 1 inh inhalation BID esomeprazole magnesium [Nexium] 20 mg capsule,delayed release(DR/EC) 20 mg PO DAILY celecoxib [Celebrex] 200 mg capsule 200 mg PO DAILY clopidogrel [Plavix] 75 mg tablet 75 mg PO DAILY metformin 1,000 mg tablet 1,000 mg PO BID atorvastatin [Lipitor] 10 mg tablet 10 mg PO DAILY acetaminophen [Tylenol Extra Strength] 500 mg tablet 1,000 mg PO DAILY rosuvastatin 40 mg tablet 40 mg PO DAILY Patient Comments: TAKE 1 TABLET BY MOUTH ONCE DAILY hydrocodone-acetaminophen 5-325 mg tablet 1 tab PO BID PRN (Reason: pain) Patient Comments: TAKE 1 TABLET BY MOUTH TWICE DAILY NEEDED FOR PAIN Discharge Instructions Instructions: Transient ischemic attack Additional Instructions: resume your usual medications as directed please schedule follow up appointment with your doctor. Stand Alone Forms: Nursing Discharge Form Referrals: Unknown,Unknown [Primary Care Provider] - 12/28/24 9:30 am (neurology or pcp upon discharge) Activity:: Activity as Tolerated Equipment/Supplies:: No Equipment Needed Diet:: Carb Counting Discharge Orders Discharge Orders: Discharge Order (Routine); Ordered 12/26/24 Ordered By: Alisha Bales Discharge Data Discharge Date/Time-TO BE ENTERED AT DEPARTURE: 12/26/24 13:45 DS: Summary Time Spent with Patient providing and/or coordinating discharge services: Less than 30 minutes Status at Discharge Functional status at discharge: independent ambulation Overall status at discharge: patient is back to baseline Mental Status: mental status grossly normal Speech and Movement: speech and movement normal Mood: congruent mood Affect: normal affect Quality:SDOH Health Related Social Needs: No Data to Display Exam Narrative Exam Narrative: Morbidly obese female of stated age no acute distress head is atraumatic normocephalic eyes nonicteric noninjected oral mucosas moist neck supple full range of motion facial features symmetrical. Cardiovascular regular rate and rhythm respirations even and unlabored abdomen is obese soft nontender moves all extremities equally no unilateral weakness or weakness appreciated strength is 5 out of 5 to bilateral upper and lower extremities neurologic she is awake alert oriented no focal deficits psychiatric appropriate mood and affect Psych Mental Status: mental status grossly normal Speech and Movement: speech and movement normal Mood: congruent mood Affect: normal affect DS: Data Vitals/I&O Vitals and I&O: Vital Signs Temperature 36.8 C 12/26/24 07:53 Temperature Source Temporal Artery Scan 12/26/24 07:53 Pulse 81 12/26/24 07:53 Pulse Rhythm Regular 12/25/24 17:47 Pulse 75 12/25/24 18:30 Respiratory Rate 20 12/26/24 07:53 Respiratory Effort Normal, Non-Labored 12/25/24 17:47 Respiratory Depth Normal 12/25/24 17:47 Respiratory Pattern Normal 12/25/24 17:47 Blood Pressure 135/69 12/26/24 07:53 Blood Pressure Mean 96 12/25/24 17:38 Blood Pressure Position Sitting 12/25/24 14:00 Pulse Oximetry 94 12/26/24 07:53 Oxygen Delivery Method Room Air 12/26/24 07:53 Oxygen Flow Rate 0 12/26/24 07:53 Pain Level 4 12/26/24 07:53 Intake & Output 12/25/24 12/25/24 12/26/24 11:59 23:59 11:59 Intake Total 1500 / 1500 Output Total 900 / 900 1200 / 1200 Balance -900 / -900 300 / 300 Weight 115.439 kg Intake: IV 1000 / 1000 Oral 500 / 500 Output: Urine 900 / 900 1200 / 1200 Other: Urine Color Yellow Yellow Urine Appearance Clear Clear Urine Odor None None Comment Was not able to measure as she also had a BM in commode Stool Size Large Stool Characteristics Soft Data Completed and Pending Labs on day of discharge: Labs from last 24 hours 12/25/24 12/25/24 12/25/24 18:02 15:58 15:32 WBC RBC Hgb Hct MCV MCH MCHC RDW Plt Count MPV Immature Gran % Neutrophils % Lymphocytes % Monocytes % Eosinophils % Basophils % Nucleated RBC % Absolute Neutrophils Absolute Lymphocytes Absolute Monocytes Absolute Eosinophils Absolute Basophils PT INR APTT Sodium Potassium Chloride Carbon Dioxide Anion Gap BUN Creatinine Est GFR (CKD-EPI 2020) Glucose Hemoglobin A1c Calcium Magnesium Total Bilirubin AST ALT Alkaline Phosphatase Troponin I 4 Total Protein Albumin Triglycerides 164 H Total Cholesterol 121 LDL Cholesterol, Calc 16 HDL Cholesterol 73 H TSH Urine Color Yellow Urine Clarity Clear Urine pH 6.5 Ur Specific [place] 1.010 Urine Protein Negative Urine Ketones Negative Urine Blood Negative Urine Nitrite Negative Urine Bilirubin Negative Urine Urobilinogen 0.2 Ur Leukocyte Esterase Negative Urine Glucose Negative [place] 12/25/24 14:12 WBC 8.66 RBC 4.69 Hgb 12.4 Hct 40.1 MCV 86 MCH 26.4 L MCHC 30.9 L RDW 14.0 Plt Count 207 MPV 10.8 Immature Gran % 0.3 Neutrophils % 61.4 Lymphocytes % 29.8 Monocytes % 6.4 Eosinophils % 1.8 Basophils % 0.3 Nucleated RBC % 0.0 Absolute Neutrophils 5.31 Absolute Lymphocytes 2.58 Absolute Monocytes 0.55 Absolute Eosinophils 0.16 Absolute Basophils 0.03 PT 10.3 INR 1.0 APTT 24.8 Sodium 141 Potassium 4.1 Chloride 102 Carbon Dioxide 30.3 Anion Gap 8.7 BUN 14 Creatinine 1.2 H Est GFR (CKD-EPI 2020) 54.13 Glucose 227 H Hemoglobin A1c 7.2 H Calcium 9.9 Magnesium 1.4 L Total Bilirubin 0.7 AST 39 H ALT 39 Alkaline Phosphatase 79 Troponin I 4 Total Protein 7.2 Albumin 3.5 Triglycerides Total Cholesterol LDL Cholesterol, Calc HDL Cholesterol TSH 2.16 Urine Color Urine Clarity Urine pH Ur Specific [place] Urine Protein Urine Ketones Urine Blood Urine Nitrite Urine Bilirubin Urine Urobilinogen Ur Leukocyte Esterase Urine Glucose [place] < 0.2 L PFSH All Active Problems (Updated 12/26/24 @ 13:12 by Alisha Bales NP) Diabetes (Chronic) MARISA (acute kidney injury) (Acute) PFO (patent foramen ovale) (Acute) Bipolar 1 disorder (Chronic) Social History Smoking/Tobacco Use Status: Never Smoking risk assessment performed?: Yes Alcohol Intake: never Drug use: Never Substance use type: does not use Housing: apartment Do you feel safe at home: Yes Do you feel safe in your relationship?: Yes Time Spent with Patient Time Spent with Patient: <45 minutes Time was spent: preparing to see the patient(eg.review tests), obtaining and/or reviewing separately otained hiistory, indepentently interpreting results and counseling the patient
--- NOTE | 2024-12-26 11:48 | W.NUTRFU ---
Date of service: 12/26/24 Time of Service: 10:00 Nutrition Note NOTE: Pt is 54yo female being treated for MARISA with hx of diabetes and stroke, bipolar. Morbid obesity per BMI >50. A1C last noted as 7.2% yesterday. Pt ordered for heart healthy, consistent carb diet - I removed heart healthy as pt is on lithium and would need to keep her sodium intake to a consistent level for this medications effectiveness. Pt just on metformin at home - ordered for corrections with novolog TID this admission. 227 fasting glucose today and 183 at breakfast. She states she checks glucose at home. has no concerns or questions as she states she has been managing glucose with diet mostly for years. Will continue to monitor glucose, po intake and other labs. will remain available for education as desired. Time Spent in Nutritional Counseling and Treatment: 5 min
[2024-12-26 11:49] VITALS: BP 144/73; PULSE 71; RESP 20; TEMP 36.6; O2SAT 98
--- NOTE | 2024-12-26 11:50 | DI.MRI_ITS ---
Exam(s) MR BRAIN WO EXAM: MR BRAIN WO CLINICAL HISTORY: Stroke TECHNIQUE: Multiplanar multisequence MRI of the brain was performed. COMPARISON: MR MR BRAIN WO from 07/11/2024 MR MR ANGIO BRAIN WO from 07/11/[address] BRAIN NECK CTA from 12/25/2024 FINDINGS: VENTRICLES AND EXTRA AXIAL SPACES: Normal in size and morphology for the patient's age. MIDLINE SHIFT: None. CEREBRAL PARENCHYMA: No focus of restricted diffusion to suggest acute infarct. No space-occupying le jm identified. Stable cysts in the basal ganglia. HEMORRHAGE: None. BRAINSTEM/CEREBELLUM: Normal. CALVARIUM: Normal. VISUALIZED PARANASAL SINUSES/MASTOIDS:Clear. [place]: Normal flow void. PITUITARY GLAND: Unremarkable. OTHER FINDINGS: None. IMPRESSION: No evidence of an acute intracranial infarct. DATA REPOSITORY:
--- NOTE | 2024-12-26 14:11 | PDOC.CMDIS ---
Date of service: 12/26/24 Time of Service: 14:11 LACE Index Scoring Tool Questions: Length of Stay (in days): 1 Was the patient admitted via the E.D.?: Yes Comorbidities: Cerebrovascular Disease and Diabetes w/o Complication E.D. Visits: 5 Answers: Total Score: 10 Risk of Readmission: High Risk Care Management Discharge Plan Reason for Hospitalization: TIA, Stroke Discharge Plan: Tushar is discharge home via private vehicle with her . Tushar will follow up with her PCP, Neurologist and discharge plan of care as directed. CM was unable to engage with patient while she was admitted, however was able to talk to her Via phone after she discharged. Patient/Family Education Needs: Review discharge instructions, limitations and plan to follow up after discharge. Review ask me three. SDOH Health Related Social Needs: No Data to Display
--- NOTE | 2025-01-26 15:29 | NUR.NOTE ---
Access chart: [facility] Dr. Myers, Neuro called requesting the discharge summary, diagnostic imaging reports and labs. These will be faxed. Called DI to have images pushed to [facility]. P [phone] f [phone]
== END 2024-12-26 13:45 | disposition home or self-care (01) ==
LOC: ER 16:04 → MS 17:43
PROVIDERS: Nurse Practitioner Acute Care; Admitting Provider Family Medicine; Emergency Provider Emergency Medicine; Responsible Provider Nurse Practitioner Acute Care; Visit Provider Family Medicine
DX: G45.9 Transient cerebral ischemic attack, unspecified (principal); F31.9 Bipolar disorder, unspecified; Q21.12 Patent foramen ovale; N17.9 Acute kidney failure, unspecified; E11.9 Type 2 diabetes mellitus without complications; E03.9 Hypothyroidism, unspecified; Z86.73 Personal history of transient ischemic attack (TIA), and cerebral infarction without residual deficits; Z79.85 Long-term (current) use of injectable non-insulin antidiabetic drugs; Z79.899 Other long term (current) drug therapy; R47.1 Dysarthria and anarthria; Z79.84 Long term (current) use of oral hypoglycemic drugs
CPT/HCPCS: 00123; 36416; 70496; 70498; 80053; 80061; 82962; 93005; 94640; 96361; 96365; 96366; 96372; 99285; J1650; 70551; 80178; 81003; 83036; 83735; 84443; 84484; 85025; 85610; 85730; 93010; 94664; 99223; 99239; G0378; J1815; J3475; J3490

== ENCOUNTER 2025-09-10 10:50 | Emergency (ER) | payer MEDICARE, SELFPAY ==
[2025-09-10 10:56] VITALS: BP 140/86; PULSE 100; RESP 16; TEMP 37; O2SAT 96
--- NOTE | 2025-09-10 11:00 | DI.RAD_ITS ---
Exam(s) XR SHOULDER LT COMPLETE 2+V EXAM: XR SHOULDER LT COMPLETE 2+V CLINICAL HISTORY: pain lateral shoulder. TECHNIQUE: 2D digital imaging was performed. Four views. COMPARISON: No exams were available for comparison FINDINGS: BONES: No acute fracture is present. No bony destructive lesion is seen. JOINTS: No dislocation present. There are mild degenerative changes of the AC joint and glenohumeral joint. SOFT TISSUE: There is a small calcification above the greater tuberosity consistent with calcific tendinosis. IMPRESSION: Calcific tendinosis. No evidence of fracture. Mild degenerative changes. DATA REPOSITORY: RADIATION DOSE DELIVERED:
--- NOTE | 2025-09-10 11:11 | W.ED.GENAD ---
Discharge Plan Disposition Patient Disposition: Home Condition: Stable Discharge Details Clinical Impression: Left shoulder strain Primary Care Provider: Unknown,Unknown ED Provider: Jurgen Sánchez Home Meds and New Rx's Prescriptions: New cyclobenzaprine 10 mg tablet 10 mg PO TID PRNQty: 20 0RF Continued Ozempic 2 mg/dose (8 mg/3 mL) pen injector 2 mg subcut QWEEK levothyroxine [Synthroid] 50 mcg tablet 50 mcg PO DAILY aspirin 81 mg capsule 81 mg PO DAILY ziprasidone HCl [Geodon] 80 mg capsule 80 mg PO HS Rx Instructions: give with food (meal/snack) trazodone 100 mg tablet 200 mg PO HS duloxetine [Cymbalta] 60 mg capsule,delayed release(DR/EC) 60 mg PO DAILY lithium carbonate 300 mg tablet 300 mg PO DAILY magnesium oxide 400 mg magnesium capsule 400 mg PO DAILY [id number] Tablet 1 tab PO DAILY fluticasone propion-salmeterol [Advair Diskus] 250-50 mcg/dose blister with device 1 inh inhalation BID esomeprazole magnesium [Nexium] 20 mg capsule,delayed release(DR/EC) 20 mg PO DAILY celecoxib [Celebrex] 200 mg capsule 200 mg PO DAILY clopidogrel [Plavix] 75 mg tablet 75 mg PO DAILY metformin 1,000 mg tablet 1,000 mg PO BID atorvastatin [Lipitor] 10 mg tablet 10 mg PO DAILY acetaminophen [Tylenol Extra Strength] 500 mg tablet 1,000 mg PO DAILY rosuvastatin 40 mg tablet 40 mg PO DAILY Patient Comments: TAKE 1 TABLET BY MOUTH ONCE DAILY hydrocodone-acetaminophen 5-325 mg tablet 1 tab PO BID PRN (Reason: pain) Patient Comments: TAKE 1 TABLET BY MOUTH TWICE DAILY NEEDED FOR PAIN Discharge Instructions Additional Instructions: Your x-ray did not show any fractures. If pain so improving this week follow-up with your primary care provider. Use the sling as needed, make sure you are taking your arm out a few times a day to range your joints. If you feel more ill or have new symptoms such as high fevers or difficulty breathing return to the emergency department for reevaluation. Stand Alone Forms: Portal Information HPI General Mode of arrival: ambulatory. Date/Time Provider Initiated Documentation: 09/10/25 10:51. Limitations to Documentation: no limitations. Information obtained by: patient. History of Present Illness 54 year old F presents to the emergency department with the chief complaint of left shoulder pain, described as moderate, Quality is described as aching, and is localized to the left and upper extremity. Patient reports no radiation. and it has been constant. No relieving factors improve symptom(s), No exacerbating factors reported . Patient notes no other symptoms.. Patient did receive the following treatments prior to arrival, none Related Data Home Medications ?Medication ?Instructions ?Recorded ?Confirmed acetaminophen 500 mg tablet 1,000 mg PO DAILY 02/15/24 12/25/24 (Tylenol Extra Strength) aspirin 81 mg capsule 81 mg PO DAILY 02/15/24 12/25/24 atorvastatin 10 mg tablet (Lipitor) 10 mg PO DAILY 02/15/24 12/25/24 celecoxib 200 mg capsule (Celebrex) 200 mg PO DAILY 02/15/24 12/25/24 clopidogrel 75 mg tablet (Plavix) 75 mg PO DAILY 02/15/24 12/25/24 duloxetine 60 mg capsule,delayed 60 mg PO DAILY 02/15/24 12/25/24 release (Cymbalta) esomeprazole magnesium 20 mg 20 mg PO DAILY 02/15/24 12/25/24 capsule,delayed release (Nexium) fluticasone 250 mcg-salmeterol 50 1 inh inhalation BID 02/15/24 12/25/24 mcg/dose blistr powdr for inhalation (Advair Diskus) levothyroxine 50 mcg tablet 50 mcg PO DAILY 02/15/24 12/25/24 (Synthroid) lithium carbonate 300 mg tablet 300 mg PO DAILY 02/15/24 12/25/24 magnesium oxide 400 mg PO DAILY 02/15/24 12/25/24 metformin 1,000 mg tablet 1,000 mg PO BID 02/15/24 12/25/24 [id number]-[id number]-ahtufc tablet 1 tab PO DAILY 02/15/24 12/25/24 semaglutide 2 mg/dose (8 mg/3 mL) 2 mg subcut QWEEK 02/15/24 12/25/24 subcutaneous pen injector (Ozempic) trazodone 100 mg tablet 200 mg PO HS 02/15/24 12/25/24 ziprasidone HCl 80 mg capsule 80 mg PO HS 02/15/24 12/25/24 (Geodon) hydrocodone 5 mg-acetaminophen 325 1 tab PO BID PRN pain 12/25/24 12/25/24 mg tablet rosuvastatin 40 mg tablet 40 mg PO DAILY 12/25/24 12/25/24 cyclobenzaprine 10 mg tablet 10 mg PO TID PRN #20 tabs 09/10/25 Previous Rx's ?Medication ?Instructions ?Recorded cyclobenzaprine 10 mg tablet 10 mg PO TID PRN #20 tabs 09/10/25 Allergies Allergy/AdvReac Type Severity Reaction Status Date / Time Influenza Virus Vaccines Allergy Intermediate Hives Unverified 09/10/25 10:59 Penicillins Allergy Intermediate Skin Rash Unverified 09/10/25 10:59 Sulfa (Sulfonamide Allergy Intermediate Skin Rash Unverified 09/10/25 10:59 Antibiotics) tramadol AdvReac Mild Other (See Unverified 09/10/25 10:59 Comment) NSAIDS (Non-Steroidal AdvReac no Verified 09/10/25 10:59 Anti-Inflamma reactions General Stated Complaint: Orthopedic MAITE: 3 Review of Systems All systems reviewed & are unremarkable except as noted in HPI and below Constitutional Constitutional: Denies chills, Denies fever(s) and Denies weakness Cardiovascular Cardiovascular: Denies chest pain and Denies dyspnea Respiratory Respiratory: Denies cough and Denies dyspnea Gastrointestinal Gastrointestinal: Denies abdominal pain and Denies vomiting Neurologic Neurologic: Denies weakness Exam Const General: no acute distress Orientation: alert [facility] Head: normal to inspection Ears: external ears normal General nose exam: external nose normal Mouth: moist mucous membranes Eyes General: appearance normal, both eyes and all related structures Neck Neck: normal visual inspection Resp Effort & Inspection: normal respiratory effort and able to speak in complete sentences Cardio Rate: regular rate Skin General skin exam: no rashes or lesions noted Neuro General: patient alert and patient oriented x3 Extrem General: full ROM and capillary refill normal Psych Mental Status: mental status grossly normal Course Vital Signs Vital signs: Vital Signs Temperature 37.0 C 09/10/25 10:56 Pulse 100 H 09/10/25 10:56 Respiratory Rate 16 09/10/25 10:56 Blood Pressure 140/86 09/10/25 10:56 Pulse Oximetry 96 09/10/25 10:56 Temperature 37.0 C 09/10/25 10:56 Temperature Source Oral 09/10/25 10:56 Pulse 100 H 09/10/25 10:56 Respiratory Rate 16 09/10/25 10:56 Blood Pressure 140/86 09/10/25 10:56 Pulse Oximetry 96 09/10/25 10:56 Oxygen Delivery Method Room Air 09/10/25 10:56 Oxygen Flow Rate 0 09/10/25 10:56 Pain Level 8 09/10/25 11:00 Medical Decision Making 54-year-old female with a history of bipolar, comes in with chief complaint of left shoulder pain. She says that started after she was carrying her dog 4 days ago and thinks she may have strained it. Denies any falls, no chest pain or difficulty breathing. No pain with exertion. She says moving her arm makes it hurt is also touching the shoulder makes it hurt. She has tenderness to the anterior lateral left shoulder. There is no visible or palpable deformities. She has full range of motion of the shoulder though with pain. There is no swelling of the arm and she has intact distal sensation and pulses. I suspect a strain versus muscle spasm, will obtain x-ray of the shoulder and reassess after Valium and oral pain medication. X-ray on my read and virtual radiology read is negative for acute findings. She is feeling better. She has less pain with movement of her arm now. I suspect shoulder strain, although by wrestling to use it also advised to follow-up with her PCP if not improving this week, return precautions given. Differential Diagnosis Differential Diagnosis: strain,muscle spasm PFSH All Active Problems (Updated 09/10/25 @ 12:22 by Jurgen Sánchez MD) Left shoulder strain (Acute) Diabetes (Chronic) PFO (patent foramen ovale) (Acute) Bipolar 1 disorder (Chronic) Social History Smoking/Tobacco Use Status: Never Smoking risk assessment performed?: Yes Alcohol Intake: never Drug use: Never Substance use type: does not use Housing: apartment Do you feel safe at home: Yes Do you feel safe in your relationship?: Yes
[2025-09-10] MEDS: diazePAM 10 MG/2 ML SYR 5 MG IM (11:15)
[2025-09-10] MEDS: Gabapentin 300 MG CAP PO (11:16)
[2025-09-10] MEDS: Acetaminophen 500 MG TAB 1000 MG PO (11:16)
--- NOTE | 2025-09-10 11:53 | DI.VRAD_ITS ---
PROCEDURE INFORMATION: Exam: XR Left Shoulder Exam date and time: 09/10/2025 11:24 AM Age: 54 years old Clinical indication: Pain; Shoulder; Left TECHNIQUE: Imaging protocol: Radiologic exam of the left shoulder. Views: 2 or more views. COMPARISON: CT BRAIN NECK CTA 12/25/2024 2:22 PM FINDINGS: Bones/joints: Mild degenerative disease of the left acromioclavicular joint. Soft tissue calcifications around the greater tuberosity, suggestive of rotator cuff calcific tendinosis. Soft tissues: See Bones/joints finding. IMPRESSION: No acute fracture or dislocation. Dictated and Authenticated by: Doroteo Rivera MD. Orderin Princess Seaman MD
[2025-09-10 12:32] VITALS: BP 153/95; PULSE 93; TEMP 37.2; O2SAT 98
== END 2025-09-10 12:44 | disposition home or self-care (01) ==
PROVIDERS: Emergency Provider Emergency Medicine
DX: S46.912A Strain of unspecified muscle, fascia and tendon at shoulder and upper arm level, left arm, initial encounter (principal); X50.0XXA Overexertion from strenuous movement or load, initial encounter
CPT/HCPCS: 99283; 99284; 96372; 73030; J3360